=== PATIENT | male | born 1955 | race Native Hawaiian/Other Pacific Islander ===

== ENCOUNTER 2020-06-23 10:58 | Emergency (ER) | payer OTHER, SELFPAY ==
[2020-06-23] VITALS (8 sets, daily range): BP systolic 135–139; BP diastolic 67–75; PULSE 71–85; RESP 18; TEMP 36.4; O2SAT 97–99
--- NOTE | 2020-06-23 11:33 | DI.RAD.S_ITS ---
PROCEDURE: XR FOOT LT MIN 3V INDICATIONS: Left 1st toe infection, spreading to foot and 2nd toe TECHNIQUE: 3 views of the foot were acquired. COMPARISON: None. FINDINGS: Bones: No fractures or dislocations. No suspicious bony lesions. There is arthritis involving the great toe IP joint. Subchondral lucencies are identified. Soft tissues: No tibiotalar joint effusion. Achilles tendon appears normal. IMPRESSION: There is nonspecific arthritic change involving the great toe IP joint. If suspect a septic joint, left foot MRI with without contrast may be helpful. Dictated by: Martell Goodwin M.D. on 06/23/2020 at 10:54 Approved by: Martell Goodwin M.D. on 06/23/2020 at 10:56
--- NOTE | 2020-06-23 11:35 | PC.NURSE ---
Left great toe swollen w/ exudate, small area of dark round on bottom of toe, redness and swelling spreading to 2nd toe and to bases of toes. + CSM w/ movement limited by pain.
[2020-06-23 11:53] LABS: INR 1.1 (0.9-1.3); Prothrombin Time 12.5 SECONDS (10.1-12.7)
[2020-06-23 11:55] LABS: PTT Partial Thromboplastin Tim 36 SECONDS (26.4-36.2)
[2020-06-23 11:58] LABS: Add Manual Diff / Slide Review NO; Basophils Absolute Auto 100 /uL (0-100); Basophils Percent Auto 0.7 % (0-2); Eosinophils Absolute Auto 1100 /uL (0-450); Hematocrit 41.2 % (41-53); Hemoglobin 13.4 g/dL (13.5-17.5); Lymphocytes Absolute Auto 1900 /uL (1100-4500); Lymphocytes Percent Auto 24.9 % (25-40); Mean Corpuscular HGB Conc 32.6 % (30-36); Mean Corpuscular Hemoglobin 29.6 PG (26-34); Mean Corpuscular Volume 90.8 fL (80-100); Monocytes Absolute Auto 800 /uL (0-900); Monocytes Percent Auto 10.9 % (3-14); Neutrophils Absolute Auto 3800 /uL (1500-7000); Neutrophils Percent Auto 49.5 % (50-75); Platelet Count 273 X10^3/uL (150-400); Red Blood Cell Count 4.54 X10^6/uL (4.5-5.9); White Blood Cell Count 7.8 X10^3/uL (4.5-11.0)
[2020-06-23 12:05] LABS: Alanine Aminotransferase 7 IU/L (<50); Albumin 3.6 g/dL (3.5-5.0); Alkaline Phosphatase 64 U/L (38-126); Aspartate Aminotransferase 22 IU/L (17-59); BUN Creatinine Ratio 17.4 (6-22); Bilirubin Total 0.4 mg/dL (0.2-1.3); Blood Urea Nitrogen 26 mg/dL (9-20); Calcium 8.5 mg/dL (8.4-10.2); Carbon Dioxide 28 mmol/L (22-32); Chloride 101 mmol/L (98-107); Estimated Glomerular Filt Rate 47.2 mL/min (>60); Globulin 3.5 g/dL (1.7-4.1); Glucose 173 mg/dL (80-110); HEMOLYSIS < 15 (0-50); Lipase 226 U/L (23-300); Potassium 3.8 mmol/L (3.4-5.1); Sodium 133 mmol/L (137-145); Total Protein 7.1 g/dL (6.3-8.2)
--- NOTE | 2020-06-23 12:21 | ED_ITS ---
HPI - Extremity Problem General Chief complaint: Extremity Problem,Nontraumatic Stated complaint: Left big toe infection, started swelling, diabetic Time Seen by Provider: 06/23/20 11:59 Source: patient and family Mode of arrival: Wheelchair Limitations: no limitations History of Present Illness HPI Narrative: This is a 64-year-old male comes emergency department with complaint of infection in his great toe and extending into the proximal foot and 2nd toe. Patient has had a wound on the bottom of his great toe that he has been following with [facility]. They have been doing localized wound care along with topical bacitracin and they both state that his been slowly healing. Patient states in the last 1-2 days he has noticed increasing redness extending over the top of the toe and towards the edge of the 2nd toe. He also appreciated some maceration between the toes. He states they have been keeping the area clean and dry. Patient states it has become more painful. He has known insulin-dependent diabetes, Parkinson's and has not had any prior skin infections in the past. He states his hemoglobin A1c has improved from 8-7.5. He denies any other systemic symptoms such as fevers, no chest pain, shortness of breath, nausea or vomiting, no other GI or urinary symptoms. He denies any known neuropathy. He has not been on any oral antibiotics. He has been referred to a roller bearing inspector by the [facility] a month ago but they have not been able to actually establish an appointment for that the referral has been fully completed. Related Data Previous Rx's Medication Instructions Recorded doxycycline hyclate 100 mg PO BID #20 tab 06/23/20 Allergies Allergy/AdvReac Type Severity Reaction Status Date / Time No Known Drug Allergies Allergy Verified 06/23/20 11:22 Review of Systems Review of Systems ROS Unobtainable: All systems reviewed & are unremarkable except as noted in HPI and below Patient History Medical History Diabetes Social History Smoking Status: Never smoker Smoking Status: Never smoker alcohol intake frequency: 0-2 drinks per day Substance Use Type: does not use Exam Narrative Exam Narrative: GENERAL: Alert and oriented x three, well-nourished male in mild distress HEENT: Head normocephalic, atraumatic, EOMI, pupils reactive, face symmetric, moist mucous membranes NECK: Supple, full range of motion CARDIOVASCULAR: Regular rate and rhythm without murmurs, rubs or gallops. RESPIRATORY: Breath sounds equal bilaterally, no wheezes rales or rhonchi. ABDOMEN: Soft, nontender. Normoactive bowel sounds all 4 quadrants. No guarding or rebound, rigidity, no mass EXTREMITIES: Normal range of motion. Neurovascularly intact. Patient has swelling of the great toe on the left foot as well as some mild swelling into the 2nd toe on the medial side. Patient has a wound with clear callus that ap pears to be developing over that area. It is not actively draining any fluid. The dorsum of the foot has some erythema and swelling attending about a cm up into the dorsum of the foot in webbing between the 2 toes. The skin is macerated between the 1st and 2nd digits. There is some serosanguineous drainage but no purulent drainage. Patient does have tenderness to light touch. Cap refill does appear to be intact. Patient has significant thickening of the toenail consistent with onychomycosis. Patient does have 2+ dorsalis pedis bilateral lower extremities sensation to light touch throughout both feet. And full range of motion. NEUROLOGICAL: Cranial nerves II through XII grossly intact. Moving all extremities SKIN: Warm, dry, no petechiae, no rashes or lesions other than noted above. Initial Vital Signs Initial Vital Signs: Vital Signs Temperature 97.6 F 06/23/20 11:00 Pulse Rate 85 06/23/20 11:00 Respiratory Rate 18 06/23/20 11:00 Blood Pressure 135/67 06/23/20 11:00 Pulse Oximetry 98 06/23/20 11:00 Course Orders Ordered: ED Orders 06/23/20 11:31 Complete Blood Count AUTO DIFF Stat Comprehensive Metabolic Panel Stat Lactate (Lactic Acid) Stat Lipase Stat Partial Thromboplastin Time Stat Procalcitonin Stat Prothrombin Time INR Stat 06/23/20 11:33 XR foot LT min 3V Stat 06/23/20 12:15 Blood Culture Stat 06/23/20 13:30 Wound Culture and Gram Stain Stat Discontinued Medications Doxycycline Hyclate (Doxycycline Hyclate 100 Mg Tablet) 100 mg PO NOW ONE Stop: 06/23/20 12:53 Last Admin: 06/23/20 13:09 Dose: 100 mg Documented by: NAYAN Vital Signs Vital signs: Vital Signs - 8 hr 06/23/20 11:00 06/23/20 11:34 06/23/20 11:40 Temperature 97.6 F Pulse Rate 85 79 Pulse Rate [Left Dorsalis Pedis] 79 Respiratory Rate 18 Blood Pressure 135/67 Pulse Oximetry 98 97 06/23/20 12:00 06/23/20 12:30 06/23/20 13:00 Temperature Pulse Rate 79 71 76 Pulse Rate [Left Dorsalis Pedis] Respiratory Rate Blood Pressure Pulse Oximetry 98 97 99 06/23/20 13:30 06/23/20 13:33 Temperature Pulse Rate 75 75 Pulse Rate [Left Dorsalis Pedis] Respiratory Rate Blood Pressure 139/75 Pulse Oximetry 99 99 MDM - Extremity (Nontraumatic) Lab Data Result diagrams: 06/23/20 11:31 06/23/20 11:31 Labs: Lab Results 06/23/20 06/23/20 06/23/20 Range/Units 11:31 11:31 11:31 WBC 7.8 (4.5-11.0) X10^3/uL RBC 4.54 (4.5-5.9) X10^6/uL Hgb 13.4 L (13.5-17.5) g/dL Hct 41.2 (41-53) % MCV 90.8 (80-100) fL MCH 29.6 (26-34) PG MCHC 32.6 (30-36) % RDW 13.0 (11.6-14.8) % Plt Count 273 (150-400) X10^3/uL Neut % (Auto) 49.5 L (50-75) % Lymph % (Auto) 24.9 L (25-40) % [place] % (Auto) 10.9 (3-14) % Eos % (Auto) 14.0 H (2-4) % Baso % (Auto) 0.7 (0-2) % Neut # (Auto) 3800 (5132-1464) /uL Lymph # (Auto) 1900 (6336-7703) /uL [place] # (Auto) 800 (0-900) /uL Eos # (Auto) 1100 H (0-450) /uL Baso # (Auto) 100 (0-100) /uL PT 12.5 (10.1-12.7) SECONDS INR 1.1 (0.9-1.3) APTT 36 (26.4-36.2) SECONDS Sodium 133 L (137-145) mmol/L Potassium 3.8 (3.4-5.1) mmol/L Chloride 101 (98-107) mmol/L Carbon Dioxide 28 (22-32) mmol/L BUN 26 H (9-20) mg/dL Creatinine 1.49 H (0.66-1.25) mg/dL Estimated GFR 47.2 L (>60) mL/min BUN/Creatinine Ratio 17.4 (6-22) Glucose 173 H (80-110) mg/dL Lactate (0.7-2.1) mmol/L Calcium 8.5 (8.4-10.2) mg/dL Total Bilirubin 0.4 (0.2-1.3) mg/dL AST 22 (17-59) IU/L ALT 7 (<50) IU/L Alkaline Phosphatase 64 (38-126) U/L Total Protein 7.1 (6.3-8.2) g/dL Albumin 3.6 (3.5-5.0) g/dL Globulin 3.5 (1.7-4.1) g/dL Albumin/Globulin Ratio 1.0 (1.0-2.8) Lipase 226 (23-300) U/L Procalcitonin 0.10 (<0.5) ng/mL 06/23/20 Range/Units 11:31 WBC (4.5-11.0) X10^3/uL RBC (4.5-5.9) X10^6/uL Hgb (13.5-17.5) g/dL Hct (41-53) % MCV (80-100) fL MCH (26-34) PG MCHC (30-36) % RDW (11.6-14.8) % Plt Count (150-400) X10^3/uL Neut % (Auto) (50-75) % Lymph % (Auto) (25-40) % [place] % (Auto) (3-14) % Eos % (Auto) (2-4) % Baso % (Auto) (0-2) % Neut # (Auto) (7261-6139) /uL Lymph # (Auto) (1591-8951) /uL [place] # (Auto) (0-900) /uL Eos # (Auto) (0-450) /uL Baso # (Auto) (0-100) /uL PT (10.1-12.7) SECONDS INR (0.9-1.3) APTT (26.4-36.2) SECONDS Sodium (137-145) mmol/L Potassium (3.4-5.1) mmol/L Chloride (98-107) mmol/L Carbon Dioxide (22-32) mmol/L BUN (9-20) mg/dL Creatinine (0.66-1.25) mg/dL Estimated GFR (>60) mL/min BUN/Creatinine Ratio (6-22) Glucose (80-110) mg/dL Lactate 1.5 (0.7-2.1) mmol/L Calcium (8.4-10.2) mg/dL Total Bilirubin (0.2-1.3) mg/dL AST (17-59) IU/L ALT (<50) IU/L Alkaline Phosphatase (38-126) U/L Total Protein (6.3-8.2) g/dL Albumin (3.5-5.0) g/dL Globulin (1.7-4.1) g/dL Albumin/Globulin Ratio (1.0-2.8) Lipase (23-300) U/L Procalcitonin (<0.5) ng/mL Point of Care Testing Glucose POC 170 Imaging Data Extremity x-ray #1: Radiologist's Impression: [address] [id number] ReportSigned Patient: Juan J Fisher#: [id number]: 4Acct:[id number]/Sex: 64 / MDate of Service: 06/23/20Loc: EDAccession Number: [id number] Procedure: XR foot LT min 3V Ordering Provider: Aminta Pena D.O. PROCEDURE: XR FOOT LT MIN 3V INDICATIONS: Left 1st toe infection, spreading to foot and 2nd toe TECHNIQUE: 3 views of the foot were acquired. COMPARISON: None. FINDINGS: Bones: No fractures or dislocations. No suspicious bony lesions. There is arthritis involving the great toe IP joint. Subchondral lucencies are identified. Soft tissues: No tibiotalar joint effusion. Achilles tendon appears normal. IMPRESSION: There is nonspecific arthritic change involving the great toe IP joint. If suspect a septic joint, left foot MRI with without contrast may be helpful. Dictated by: Martell Goodwin M.D. on 06/23/2020 at 10:54 Approved by: Martell Goodwin M.D. on 06/23/2020 at 10:56 [facility] Narrative Medical decision making narrative: 64-year-old male comes to the emergency department with complaint of open wound that is been slowly healing on the bottom of his great toe on the left foot and in the last 2 days has developed erythema, swelling increasing pain over the dorsum of the toe and extending to the 2nd toe. Patient has been treating with localized wound care and topical antibiotics. He has not been on any oral antibiotics. X-ray shows some arthritic changes no clear signs of osteomyelitis. We did discuss that this is not cold being injured and he may need some additional evaluation. His labs are reassuring in terms of infection. At this time plan to start oral antibiotics, referral to wound care locally for follow-up this week and patient has been encouraged to return if he has increasing changes to the skin, pain or is unable to follow-up. Wound care referral was faxed. Discharge Plan Departure Patient Disposition: Home Clinical Impression: Diabetic ulcer of left great toe, Cellulitis of foot Instructions: DI for Wound Infection Activity Restrictions/Additional Instructions: Follow up with wound care this week for recheck. Call for an appointment if you have not been contacted by Thursday. Take antibiotics until completely gone. Continue with wound care and topical bacitracin to the wound on the bottom of your toe. Wound Care: Keep wound(s) clean and dry. Wash daily with soap and water only then pat dry completely including between the toes. If wound condition worsens (increased/expanding redness, developing fluid blisters, or worsening pain), either contact your doctor for an urgent re- assessment , or return to the Emergency Department. Return if fever greater than 100.4 Fahrenheit, increased swelling, increasing pain or worsening symptoms such as increased discharge or spreading redness or other new or concerning symptoms. Prescriptions: New doxycycline hyclate 100 mg tablet 100 mg PO BID Qty: 20 RF: 0 Referrals: Daryn Serrano MD [Physician] -
[2020-06-23] MEDS: DOXYCYCLINE HYCLATE 100 MG TABLET PO (13:09)
[2020-06-23 13:17] LABS: Lactate (Lactic Acid) 1.5 mmol/L (0.7-2.1)
== END 2020-06-23 14:00 | disposition home or self-care (01) ==
PROVIDERS: Emergency Provider Emergency Medicine
DX: E11.621 Type 2 diabetes mellitus with foot ulcer (principal); L97.529 Non-pressure chronic ulcer of other part of left foot with unspecified severity; L03.116 Cellulitis of left lower limb
CPT/HCPCS: 36415; 73630; 80053; 82962; 83605; 83690; 84145; 85025; 85610; 85730; 87040; 87070; 87075; 87077; 87186; 87205; 99283; 99284

== ENCOUNTER → 2020-06-26 09:21 | Outpatient (CLI) | payer MEDICARE, OTHER, SELFPAY | PROVIDERS: Referring Provider Emergency Medicine; Visit Provider Family Medicine | DX: E11.621 Type 2 diabetes mellitus with foot ulcer (principal); L97.521 Non-pressure chronic ulcer of other part of left foot limited to breakdown of skin; L03.116 Cellulitis of left lower limb; E11.40 Type 2 diabetes mellitus with diabetic neuropathy, unspecified; L08.89 Other specified local infections of the skin and subcutaneous tissue; G20 Parkinson's disease | CPT/HCPCS: 11042; 99204; 99213 ==

== ENCOUNTER → 2020-07-03 09:09 | Outpatient (CLI) | payer MEDICARE, OTHER, SELFPAY | PROVIDERS: Referring Provider Emergency Medicine; Visit Provider Family Medicine | DX: E11.628 Type 2 diabetes mellitus with other skin complications (principal); E11.621 Type 2 diabetes mellitus with foot ulcer; E11.620 Type 2 diabetes mellitus with diabetic dermatitis; L97.521 Non-pressure chronic ulcer of other part of left foot limited to breakdown of skin; S90.425A Blister (nonthermal), left lesser toe(s), initial encounter; E11.40 Type 2 diabetes mellitus with diabetic neuropathy, unspecified | CPT/HCPCS: 11042; 97597; 99214 ==

== ENCOUNTER → 2020-07-12 08:45 | Outpatient (CLI) | payer MEDICARE, OTHER, SELFPAY | PROVIDERS: Referring Provider Emergency Medicine; Visit Provider Family Medicine | DX: E11.621 Type 2 diabetes mellitus with foot ulcer (principal); E11.628 Type 2 diabetes mellitus with other skin complications; L97.521 Non-pressure chronic ulcer of other part of left foot limited to breakdown of skin; S90.425A Blister (nonthermal), left lesser toe(s), initial encounter; E11.40 Type 2 diabetes mellitus with diabetic neuropathy, unspecified | CPT/HCPCS: 11042 ==

== ENCOUNTER → 2020-07-24 09:21 | Outpatient (CLI) | payer MEDICARE, OTHER, SELFPAY | PROVIDERS: Referring Provider Emergency Medicine; Visit Provider Family Medicine | DX: E11.621 Type 2 diabetes mellitus with foot ulcer (principal); L97.521 Non-pressure chronic ulcer of other part of left foot limited to breakdown of skin; E11.40 Type 2 diabetes mellitus with diabetic neuropathy, unspecified | CPT/HCPCS: 11042; 99214 ==

== ENCOUNTER → 2020-07-24 10:22 | Outpatient (CLI) | payer MEDICARE, OTHER, SELFPAY ==
--- NOTE | 2020-07-24 10:31 | DI.RAD.S_ITS ---
PROCEDURE: XR FOOT LT MIN 3V INDICATIONS: LT DISKAL HALLUX, REEVALUATE OSTEO TECHNIQUE: 3 views of the foot were acquired. COMPARISON: [facility], CR, XR FOOT LT MIN 3V, 06/23/2020, 11:37. FINDINGS: Bones: No fractures or dislocation, but there appears to be further progression of joint space narrowing and a development of a flexion deformity at the 1st interphalangeal joint.. No suspicious bony lesions. Soft tissues: No tibiotalar joint effusion. Achilles tendon appears normal. IMPRESSION: Mild arthritic change at the interphalangeal joints of digits 2 through 5. At the 1st interphalangeal joint there is worsening joint space narrowing, and a flexion deformity on each of the 3 images potentially an indication of osteomyelitis and ligamentous laxity injury to the extensor tendon.. The clinical history indicates left 1st toe infection, and this appearance may reflect progression of disease. MR scanning with contrast may be warranted Dictated by: Ismael Coyle M.D. on 07/24/2020 at 11:09 Approved by: Ismael Coyle M.D. on 07/24/2020 at 11:18
== END ==
PROVIDERS: Referring Provider Family Medicine; Visit Provider Family Medicine
DX: L97.521 Non-pressure chronic ulcer of other part of left foot limited to breakdown of skin (principal); E11.621 Type 2 diabetes mellitus with foot ulcer; E11.40 Type 2 diabetes mellitus with diabetic neuropathy, unspecified
CPT/HCPCS: 11042; 73630

== ENCOUNTER → 2020-07-25 09:20 | Outpatient (CLI) | payer MEDICARE, OTHER, SELFPAY ==
[2020-07-25 10:12] LABS: Add Manual Diff / Slide Review NO; Basophils Absolute Auto 100 /uL (0-100); Basophils Percent Auto 0.7 % (0-2); Eosinophils Absolute Auto 600 /uL (0-450); Eosinophils Percent Auto 7.4 % (2-4); Hematocrit 43.1 % (41-53); Hemoglobin 14.3 g/dL (13.5-17.5); Lymphocytes Absolute Auto 1800 /uL (1100-4500); Mean Corpuscular HGB Conc 33.2 % (30-36); Mean Corpuscular Volume 90.3 fL (80-100); Monocytes Absolute Auto 700 /uL (0-900); Monocytes Percent Auto 8.6 % (3-14); Neutrophils Absolute Auto 4500 /uL (1500-7000); Neutrophils Percent Auto 59.3 % (50-75); Platelet Count 295 X10^3/uL (150-400); Red Blood Cell Count 4.77 X10^6/uL (4.5-5.9); Red Cell Distribution Width 13.5 % (11.6-14.8); White Blood Cell Count 7.6 X10^3/uL (4.5-11.0)
[2020-07-25 10:21] LABS: Hemoglobin A1C% w Est Avg Glu 7.6 % (4.0-6.0)
[2020-07-25 10:41] LABS: Erythrocyte Sedimentation Rate 4 MM/HR (0-15)
[2020-07-25 10:46] LABS: HEMOLYSIS 24 (0-50); Potassium 3.8 mmol/L (3.4-5.1)
[2020-07-25 10:49] LABS: Alanine Aminotransferase 10 IU/L (<50); Alkaline Phosphatase 69 U/L (38-126); Aspartate Aminotransferase 24 IU/L (17-59); BUN Creatinine Ratio 19.3 (6-22); Bilirubin Total 0.4 mg/dL (0.2-1.3); Blood Urea Nitrogen 29 mg/dL (9-20); C-Reactive Protein Quant < 0.5 mg/dL (<1.0); Calcium 8.4 mg/dL (8.4-10.2); Carbon Dioxide 26 mmol/L (22-32); Chloride 100 mmol/L (98-107); Estimated Glomerular Filt Rate 46.8 mL/min (>60); Globulin 3.9 g/dL (1.7-4.1); Glucose 176 mg/dL (80-110); Sodium 136 mmol/L (137-145); Total Protein 7.9 g/dL (6.3-8.2)
== END ==
PROVIDERS: Referring Provider Family Medicine; Visit Provider Family Medicine
DX: L97.521 Non-pressure chronic ulcer of other part of left foot limited to breakdown of skin (principal); E11.40 Type 2 diabetes mellitus with diabetic neuropathy, unspecified
CPT/HCPCS: 36415; 80053; 83036; 85025; 85651; 86140

== ENCOUNTER → 2020-07-26 07:00 | Outpatient (CLI) | payer MEDICARE, OTHER, SELFPAY ==
--- NOTE | 2020-07-26 | DI.MRI.S_ITS ---
PROCEDURE: MR FOOT LT WO/W CON INDICATIONS: Non-pressure chronic ulcer of other part of left f TECHNIQUE: Noncontrast coronal T1 spin echo and STIR, sagittal T1 spin echo with fat saturation and STIR, axial T1 spin echo and T2 fast spin echo with fat saturation. After the administration of contrast, axial/sagittal/coronal T1 spin echo with fat saturation through the left foot . COMPARISON: [facility], CR, XR FOOT LT MIN 3V, 07/24/2020, 10:39. FINDINGS: Image quality: Excellent. Bones: The visualized bone marrow demonstrates normal signal on all sequences. The overlying cortex appears intact. No abnormal intraosseous enhancement. 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 The sesamoids signal intensity within normal limits. There is mild T2 hyperintensity in the tip of the distal phalanx of the great toe which could be reactive, without definite loss of fat signal intensity on T1 weighted pulse sequences. Soft tissues: There is diffuse muscle edema involving the interosseous and abductor hallucis muscles. No evidence of abscess. There is soft tissue swelling at the tip of the great toe. IMPRESSION: Diffuse myositis involving the deep plantar musculature of the foot. The exact etiology is unclear therefore please correlate clinically. This could be inflammatory or infectious in nature, denervation, versus acute posttraumatic or chronic overuse etiologies No specific focal marrow signal changes to suggest osteomyelitis. If clinically warranted, continued surveillance with serial short interval radiographs could be performed. 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 on 07/26/2020 at 9:54 Approved by: Naresh George M.D. on 07/26/2020 at 10:02
== END ==
PROVIDERS: Referring Provider Family Medicine; Visit Provider Family Medicine
DX: E11.40 Type 2 diabetes mellitus with diabetic neuropathy, unspecified (principal); L97.521 Non-pressure chronic ulcer of other part of left foot limited to breakdown of skin; E11.620 Type 2 diabetes mellitus with diabetic dermatitis; M60.9 Myositis, unspecified; M19.072 Primary osteoarthritis, left ankle and foot
CPT/HCPCS: 73720

== ENCOUNTER → 2020-08-09 08:43 | Outpatient (CLI) | payer MEDICARE, OTHER, SELFPAY | PROVIDERS: Referring Provider Emergency Medicine; Visit Provider Family Medicine | DX: E11.621 Type 2 diabetes mellitus with foot ulcer (principal); L97.521 Non-pressure chronic ulcer of other part of left foot limited to breakdown of skin; E11.40 Type 2 diabetes mellitus with diabetic neuropathy, unspecified; G20 Parkinson's disease; Z48.01 Encounter for change or removal of surgical wound dressing | CPT/HCPCS: 99213 ==

== ENCOUNTER → 2020-08-16 09:52 | Outpatient (CLI) | payer MEDICARE, OTHER, SELFPAY | PROVIDERS: Referring Provider Emergency Medicine; Visit Provider Nurse Practitioner Family | DX: Z86.31 Personal history of diabetic foot ulcer (principal); E11.40 Type 2 diabetes mellitus with diabetic neuropathy, unspecified | CPT/HCPCS: 99212; 99213 ==

== ENCOUNTER 2022-07-27 06:31 | Observation (INO) | payer MEDICARE, OTHER, SELFPAY ==
[2022-07-27] VITALS (30 sets, daily range): BP systolic 126–204; BP diastolic 59–95; PULSE 66–89; RESP 11–28; TEMP 36.3–36.9; O2SAT 95–100; BMI 27.9
--- NOTE | 2022-07-27 06:45 | DI.RAD.S_ITS ---
PROCEDURE: XR CHEST 1V INDICATIONS: syncope TECHNIQUE: One view of the chest was acquired. COMPARISON: None. FINDINGS: Surgical changes and devices: None. Lungs and pleura: Lungs are clear. No pleural effusions or pneumothorax. Mediastinum: Mediastinal contours appear normal. Heart size is normal. Bones and chest wall: No suspicious bony lesions. A probable bone island on the right 6th anterior rib. Overlying soft tissues appear unremarkable. IMPRESSION: 1. No acute cardiopulmonary abnormality. 2. Probable bone island on the right 6th rib anteriorly. Oblique view would be confirmatory. Comment: Final report is concordant with preliminary interpretation by [facility] Dictated by: Jeanmarie Nelson M.D. on 07/27/2022 at 7:54 Approved by: Jeanmarie Nelson M.D. on 07/27/2022 at 7:55
--- NOTE | 2022-07-27 07:27 | ED.GENADULT ---
HPI - General Adult General Chief complaint: Syncope Stated complaint: fell and hit back of head and hit tailbone Time Seen by Provider: 07/27/22 06:39 Source: patient and family Mode of arrival: Wheelchair History of Present Illness HPI narrative: Patient is a 66-year-old male. History of insulin-dependent diabetes. Also has a history of Parkinson's disease. Was standing this morning getting ready brushing his teeth when he states he had a syncopal episode. He would no prodromal symptoms prior to passing out. He did state that he felt like he had a headache prior to falling down but not 100% convinced this. He has a slight fullness in his head now. He is no neck pain. He also states his tailbone hurts. He scraped the top of his right foot but no other injuries from the fall. There was no seizure-like activity. He is never had a seizure in the past. He denies chest pain, shortness of breath, visual changes, bowel or bladder incontinence, hip pain. He states he does not think that he tripped. Related Data Previous Rx's Medication Instructions Recorded doxycycline hyclate 100 mg tablet 100 mg PO BID #20 tabs 06/23/20 Allergies Allergy/AdvReac Type Severity Reaction Status Date / Time No Known Drug Allergies Allergy Verified 06/23/20 11:22 Review of Systems Review of Systems ROS Unobtainable: All systems reviewed & are unremarkable except as noted in HPI and below Patient History Medical History Diabetes Parkinsons disease Social History Smoking Status: Never smoker Smoking Status: Never smoker alcohol intake frequency: 0-2 drinks per day Substance Use Type: does not use Exam Initial Vital Signs Initial Vital Signs: Vital Signs Temperature 97.4 F L 07/27/22 06:43 Pulse Rate 89 07/27/22 06:43 Respiratory Rate 17 07/27/22 06:43 Blood Pressure 159/74 H 07/27/22 06:43 Pulse Oximetry 97 07/27/22 06:43 Oxygen Delivery Method Room Air 07/27/22 06:43 Const General: cooperative, comfortable and No ill appearing HENMT Head: normal to inspection and normocephalic Resp Effort & Inspection: normal respiratory effort Auscultation: clear to auscultation bilaterally Cardio Rate: regular rate Rhythm: regular rhythm GI Inspection: normal to inspection Palpation: No guarding and No tender Back/Spine/Pelvis Cervical Spine: No cervical spinal tenderness Thoracic/Lumbar Spine: No paraspinal tenderness and lumbar spinal tenderness Skin Other: Slight abrasion to the dorsum of the right foot Neuro General: patient alert, patient awake, patient oriented x3 and moves all extremities Cognition: normal cognition Speech: speech normal Extrem General: normal to inspection and capillary refill normal Scores [place] CT Head Rule Age <16 years old: No Patient on blood thinners: No Seizure after injury: No Exclusion: Patient NOT Excluded, Proceed to next steps GCS < 15 at 2 hr post trauma: No Suspected open or depressed skull fracture: No Any sign of basilar skull fracture (hemotympanum, raccoon eyes, Parikh's sign, CSF umang-/rhinorrhea): No Two or more episodes of vomiting: No Age greater or equal to 65 years: Yes Retrograde amnesia to the event greater or equal to 30 min: No Dangerous Mechanism (pedestrian vs. mv, occupant ejected from mv, fall from >3 ft or > 5 stairs): No Recommendation: Consider CT. The [place] [facility] CT Rule cannot rule out need for Imaging. GCS [place] coma scale eye opening: Spontaneous [place] coma scale verbal response: Orientated [place] coma scale motor response: Obey commands [place] coma scale total score: 15 Nexus Score for C-Spine Focal Neurologic deficit present: No Midline spinal tenderness present: No Altered level of conciousness present: No Intoxication present: No Distracting Injury Present: No Nexus Criteria for C-spine: 0 Course Orders Ordered: ED Orders 07/27/22 06:45 XR chest 1V Stat EKG-12 Lead Stat 07/27/22 07:28 CT head/brain wo con Stat XR lumbar spine 2-3V Stat 07/27/22 07:55 Complete Blood Count AUTO DIFF Stat Comprehensive Metabolic Panel Stat Lipase Stat Magnesium Urgent Troponin & CK Cardiac Panel Stat 07/27/22 10:05 Troponin & CK Cardiac Panel Stat 07/27/22 11:00 Urine Microscopic Stat 07/27/22 11:48 Consult to Occupational Therapy Evaluate & Treat Consult to Physical Therapy Evaluate & Treat EC echo doppler complete Urgent 07/27/22 11:49 stress [NM radha perf SPECT rest & str] Urgent Lipid Panel Urgent 07/27/22 12:06 COVID19 -Nasal RAPID Stat 07/28/22 05:00 BMP [Basic Metabolic Panel] DAILY CBC Auto Diff [Complete Blood Count AUTO DIFF] DAILY Troponin I Routine 07/29/22 05:00 BMP [Basic Metabolic Panel] DAILY CBC Auto Diff [Complete Blood Count AUTO DIFF] DAILY 07/30/22 05:00 BMP [Basic Metabolic Panel] DAILY CBC Auto Diff [Complete Blood Count AUTO DIFF] DAILY Acetaminophen (Acetaminophen 325 Mg Tablet) 650 mg PO Q6H PRN PRN Reason: Fever/Mild Pain (1-3) Aspirin (Aspirin Ec 81 Mg Tablet) 81 mg PO DAILY [facility] Sodium Chloride (Normal Saline 0.9%) 1,000 mls @ 150 mls/hr IV CONT SUDHEER Last Admin: 07/27/22 08:30 Dose: 150 mls/hr Documented By: NICO Labetalol HCl (Labetalol 20 Mg/4 Ml Syringe) 10 mg IV Q5MIN PRN PRN Reason: SBP >180 or DBP >100 Losartan Potassium (Losartan 50 Mg Tablet) 25 mg PO DAILY [facility] Melatonin (Melatonin 3 Mg Tablet) 6 mg PO BEDTIME PRN PRN Reason: Insomnia Naloxone HCl (Naloxone 0.4 Mg/Ml Vial) 0.2 mg IV Q2MIN PRN PRN Reason: Opiate Reversal Polyethylene Glycol (Polyethylene Glycol 3350 17 Gm Powd.Pack) 17 gm PO DAILY PRN PRN Reason: Constipation Sennosides (Sennosides 8.6 Mg Tablet) 8.6 mg PO BID PRN PRN Reason: Constipation Vital Signs Vital signs: Vital Signs - 8 hr 07/27/22 06:43 07/27/22 07:52 07/27/22 07:55 Temperature 97.4 F L Pulse Rate 89 71 Respiratory Rate 17 24 Blood Pressure 159/74 H 201/90 H Pulse Oximetry 97 97 Oxygen Delivery Method Room Air 07/27/22 07:55 07/27/22 08:00 07/27/22 08:00 Temperature Pulse Rate 68 66 Respiratory Rate 18 17 Blood Pressure 180/84 H Pulse Oximetry 96 97 Oxygen Delivery Method 07/27/22 08:15 07/27/22 08:15 07/27/22 08:30 Temperature Pulse Rate 70 Respiratory Rate 14 Blood Pressure 178/85 H 179/92 H Pulse Oximetry 99 Oxygen Delivery Method 07/27/22 08:30 07/27/22 08:45 07/27/22 08:45 Temperature Pulse Rate 67 72 Respiratory Rate 18 21 Blood Pressure 183/86 H Pulse Oximetry 98 97 Oxygen Delivery Method 07/27/22 09:00 07/27/22 09:00 07/27/22 09:15 Temperature Pulse Rate 69 Respiratory Rate 15 Blood Pressure 182/84 H 191/89 H Pulse Oximetry 97 Oxygen Delivery Method 07/27/22 09:15 07/27/22 09:30 07/27/22 09:31 Temperature Pulse Rate 69 72 71 Respiratory Rate 12 15 13 Blood Pressure Pulse Oximetry 97 99 97 Oxygen Delivery Method 07/27/22 09:31 07/27/22 09:46 07/27/22 09:46 Temperature Pulse Rate 73 Respiratory Rate 12 Blood Pressure 204/95 H 202/88 H Pulse Oximetry 99 Oxygen Delivery Method Medical Decision Making Lab Data Lab results reviewed: Yes I reviewed the patient's lab results. 07/27/22 07:55 07/27/22 07:55 Labs: Lab Results 07/27/22 07/27/22 07/27/22 Range/Units 07:55 07:55 10:05 WBC 10.0 (4.5-11.0) X10^3/uL RBC 4.61 (4.5-5.9) X10^6/uL Hgb 13.8 (13.5-17.5) g/dL Hct 41.3 (41-53) % MCV 89.6 (80-100) fL MCH 29.9 (26-34) PG MCHC 33.4 (30-36) % RDW 13.4 (11.6-14.8) % Plt Count 289 (150-400) X10^3/uL Neut % (Auto) 74.3 (50-75) % Lymph % (Auto) 12.3 L (25-40) % [place] % (Auto) 8.4 (3-14) % Eos % (Auto) 4.7 H (2-4) % Baso % (Auto) 0.3 (0-2) % Neut # (Auto) 7400 H (5433-6847) /uL Lymph # (Auto) 1200 (4288-7202) /uL [place] # (Auto) 800 (0-900) /uL Eos # (Auto) 500 H (0-450) /uL Baso # (Auto) 0 (0-100) /uL Sodium 133 L (137-145) mmol/L Potassium 4.1 (3.4-5.1) mmol/L Chloride 101 (98-107) mmol/L Carbon Dioxide 27 (22-32) mmol/L BUN 28 H (9-20) mg/dL Creatinine 1.54 H (0.66-1.25) mg/dL Estimated GFR 49 L (>60) mL/min BUN/Creatinine Ratio 18.2 (6-22) Glucose 151 H (80-110) mg/dL Calcium 8.2 L (8.4-10.2) mg/dL Total Bilirubin 0.9 (0.2-1.3) mg/dL AST 24 (17-59) IU/L ALT 9 (<50) IU/L Alkaline Phosphatase 75 (38-126) U/L Total Creatine Kinase 425 H 397 H (55-170) U/L CK-MB (CK-2) 6.66 H 6.07 H (<2.37) ng/mL CK-MB (CK-2) Rel Index 1.6 1.5 (1.5-5.0) % Troponin I 0.082 H 0.077 H (0.01-0.034) ng/mL Total Protein 7.6 (6.3-8.2) g/dL Albumin 3.4 L (3.5-5.0) g/dL Globulin 4.2 H (1.7-4.1) g/dL Albumin/Globulin Ratio 0.8 L (1.0-2.8) Lipase 1004 H (23-300) U/L Urine RBC (0-5/HPF) Urine WBC (0-5/HPF) Ur Squamous Epith Cells (0-5/HPF) Urine Bacteria (None) Ur Culture Indicated? 07/27/22 Range/Units 11:00 WBC (4.5-11.0) X10^3/uL RBC (4.5-5.9) X10^6/uL Hgb (13.5-17.5) g/dL Hct (41-53) % MCV (80-100) fL MCH (26-34) PG MCHC (30-36) % RDW (11.6-14.8) % Plt Count (150-400) X10^3/uL Neut % (Auto) (50-75) % Lymph % (Auto) (25-40) % [place] % (Auto) (3-14) % Eos % (Auto) (2-4) % Baso % (Auto) (0-2) % Neut # (Auto) (8238-3523) /uL Lymph # (Auto) (8251-0556) /uL [place] # (Auto) (0-900) /uL Eos # (Auto) (0-450) /uL Baso # (Auto) (0-100) /uL Sodium (137-145) mmol/L Potassium (3.4-5.1) mmol/L Chloride (98-107) mmol/L Carbon Dioxide (22-32) mmol/L BUN (9-20) mg/dL Creatinine (0.66-1.25) mg/dL Estimated GFR (>60) mL/min BUN/Creatinine Ratio (6-22) Glucose (80-110) mg/dL Calcium (8.4-10.2) mg/dL Total Bilirubin (0.2-1.3) mg/dL AST (17-59) IU/L ALT (<50) IU/L Alkaline Phosphatase (38-126) U/L Total Creatine Kinase (55-170) U/L CK-MB (CK-2) (<2.37) ng/mL CK-MB (CK-2) Rel Index (1.5-5.0) % Troponin I (0.01-0.034) ng/mL Total Protein (6.3-8.2) g/dL Albumin (3.5-5.0) g/dL Globulin (1.7-4.1) g/dL Albumin/Globulin Ratio (1.0-2.8) Lipase (23-300) U/L Urine RBC 1-5/hpf (0-5/HPF) Urine WBC 0-1/hpf (0-5/HPF) Ur Squamous Epith Cells 0-1 /hpf (0-5/HPF) Urine Bacteria None seen (None) Ur Culture Indicated? Cult not indicated Urine Dip Bedside Urine Glucose Negative Bedside Urine Bilirubin - Negative Bedside Urine Ketone - Negative Urine Specific [place] 1.020 Bedside Urine Occult Blood + Bedside Urine pH 6.0 Bedside Urine Protein + 30 Bedside Urine Urobilinogen - Negative Bedside Urine Nitrite - Negative Bedside Urine Leukocytes - Negative Esterase Point of care testing: Urine Dip Bedside Urine Glucose Negative Bedside Urine Bilirubin - Negative Bedside Urine Ketone - Negative Urine Specific [place] 1.020 Bedside Urine Occult Blood + Bedside Urine pH 6.0 Bedside Urine Protein + 30 Bedside Urine Urobilinogen - Negative Bedside Urine Nitrite - Negative Bedside Urine Leukocytes - Negative Esterase Imaging Data Chest x-ray: Radiologist's Impression: No acute cardiopulmonary disease. CT scan - head: Radiologist's Impression: PROCEDURE:? CT HEAD/BRAIN WO CON ? INDICATIONS:? syncope ? TECHNIQUE:? Noncontrast 4.5 mm thick angled axial sections acquired from the foramen magnum to the vertex, with coronal and sagittal reformats.? For radiation dose reduction, the following was used:? automated exposure control, adjustment of mA and/or kV according to patient size.? ? COMPARISON:? None. ? FINDINGS:? Image quality:? Excellent.? ? CSF spaces:? Basal cisterns are patent.? No extra-axial fluid collections.? Ventricles are normal in size and shape.? ? Brain:? No midline shift.? No intracranial masses or hemorrhage.? Hansen-white matter interface is normal.? ? Skull and face:? Calvarium and visualized facial bones are intact, without suspicious lesions.? ? Sinuses:? Visualized sinuses and mastoids are clear.? ? IMPRESSION:? 1. No acute intracranial abnormality. 2. Cerebral volume loss and small vessel ischemic changes.? Lumbar spine X-ray: Radiologist's Impression: PROCEDURE:? XR LUMBAR SPINE 2-3V ? INDICATIONS:? LBP after fall ? TECHNIQUE:? 3 views of the lumbar spine were acquired.? ? COMPARISON:? None. ? FINDINGS:? ? Bones:? 5 [id number] vertebrae are present.? There is normal bony alignment.? No vertebral body compression fractures.? No suspicious bony lesions.? Facet arthrosis in the lower lumbar spine with disc space narrowing at L4-5 L5-S1.? Grade 1 anterolisthesis of L4-5 likely due facet arthrosis at this level.? The remaining disc levels superiorly appear.? No sacral or coccyx fracture.? The sacroiliac joints appear normal. ? Soft tissues:? Overlying bowel gas pattern is normal.? No suspicious soft tissue calcifications.? ? ? IMPRESSION:? 1. No acute abnormality. 2. Chronic facet arthrosis and degenerative disc disease L4-5 L5-S1 ECG Data Attestation: I personally reviewed and interpreted this ECG as follows: Interpretation: Normal sinus rhythm Ventricular rate is 68 Right bundle-branch block Normal axis No ST T wave changes MDM Narrative Medical decision making narrative: Patient did have what appeared to be a syncopal episode today although I have low suspicion that this was a mechanical fall. His workup here in the ER is unremarkable except he did have an elevated troponin. He is not having any chest pain or shortness of breath. No EKG changes concerning for ST-elevation [place]. he is not had any risk stratification testing up to this point. No specific injuries from the fall except for an abrasion on the top of his right foot. I have low suspicion for seizure. He does have an elevated lipase but no abdominal pain. His LFTs are unremarkable. Had a discussion with him and his regarding his elevated troponin. We discussed potentially going home and following up with his primary doctor about a stress test versus being admitted to the hospital. Patient opted to be admitted to the hospital. This is not unreasonable given his presentation today and also has elevated troponin. Discussed case with Dr. Amato on-call for Hospital Medicine who will admit for further evaluation and treatment. Discharge Plan Departure Patient Disposition: Admitted as Observation Clinical Impression: Syncope, Elevated troponin
--- NOTE | 2022-07-27 07:28 | DI.RAD.S_ITS ---
PROCEDURE: XR LUMBAR SPINE 2-3V INDICATIONS: LBP after fall TECHNIQUE: 3 views of the lumbar spine were acquired. COMPARISON: None. FINDINGS: Bones: 5 [id number] vertebrae are present. There is normal bony alignment. No vertebral body compression fractures. No suspicious bony lesions. Facet arthrosis in the lower lumbar spine with disc space narrowing at L4-5 L5-S1. Grade 1 anterolisthesis of L4-5 likely due facet arthrosis at this level. The remaining disc levels superiorly appear. No sacral or coccyx fracture. The sacroiliac joints appear normal. Soft tissues: Overlying bowel gas pattern is normal. No suspicious soft tissue calcifications. IMPRESSION: 1. No acute abnormality. 2. Chronic facet arthrosis and degenerative disc disease L4-5 L5-S1 Dictated by: Jeanmarie Nelson M.D. on 07/27/2022 at 8:06 Approved by: Jeanmarie Nelson M.D. on 07/27/2022 at 8:08
--- NOTE | 2022-07-27 07:28 | DI.CT.S_ITS ---
PROCEDURE: CT HEAD/BRAIN WO CON INDICATIONS: syncope TECHNIQUE: Noncontrast 4.5 mm thick angled axial sections acquired from the foramen magnum to the vertex, with coronal and sagittal reformats. For radiation dose reduction, the following was used: automated exposure control, adjustment of mA and/or kV according to patient size. COMPARISON: None. FINDINGS: Image quality: Excellent. CSF spaces: Basal cisterns are patent. No extra-axial fluid collections. Ventricles are normal in size and shape. Brain: No midline shift. No intracranial masses or hemorrhage. Hansen-white matter interface is normal. Skull and face: Calvarium and visualized facial bones are intact, without suspicious lesions. Sinuses: Visualized sinuses and mastoids are clear. IMPRESSION: 1. No acute intracranial abnormality. 2. Cerebral volume loss and small vessel ischemic changes. Dictated by: Jeanmarie Nelson M.D. on 07/27/2022 at 8:05 Approved by: Jeanmarie Nelson M.D. on 07/27/2022 at 8:06
[2022-07-27 08:03] LABS: Add Manual Diff / Slide Review NO; Basophils Absolute Auto 0 /uL (0-100); Basophils Percent Auto 0.3 % (0-2); Eosinophils Absolute Auto 500 /uL (0-450); Eosinophils Percent Auto 4.7 % (2-4); Hematocrit 41.3 % (41-53); Hemoglobin 13.8 g/dL (13.5-17.5); Lymphocytes Absolute Auto 1200 /uL (1100-4500); Lymphocytes Percent Auto 12.3 % (25-40); Mean Corpuscular HGB Conc 33.4 % (30-36); Mean Corpuscular Hemoglobin 29.9 PG (26-34); Mean Corpuscular Volume 89.6 fL (80-100); Monocytes Absolute Auto 800 /uL (0-900); Monocytes Percent Auto 8.4 % (3-14); Neutrophils Absolute Auto 7400 /uL (1500-7000); Neutrophils Percent Auto 74.3 % (50-75); Platelet Count 289 X10^3/uL (150-400); Red Blood Cell Count 4.61 X10^6/uL (4.5-5.9); Red Cell Distribution Width 13.4 % (11.6-14.8)
[2022-07-27 08:13] LABS: Alanine Aminotransferase 9 IU/L (<50); Albumin 3.4 g/dL (3.5-5.0); Albumin Globulin Ratio 0.8 (1.0-2.8); Alkaline Phosphatase 75 U/L (38-126); Aspartate Aminotransferase 24 IU/L (17-59); BUN Creatinine Ratio 18.2 (6-22); Bilirubin Total 0.9 mg/dL (0.2-1.3); Blood Urea Nitrogen 28 mg/dL (9-20); Calcium 8.2 mg/dL (8.4-10.2); Carbon Dioxide 27 mmol/L (22-32); Chloride 101 mmol/L (98-107); Creatine Kinase 425 U/L (55-170); Estimated Glomerular Filt Rate 49 mL/min (>60); Globulin 4.2 g/dL (1.7-4.1); Glucose 151 mg/dL (80-110); HEMOLYSIS 36 (0-50); Lipase 1004 U/L (23-300); Potassium 4.1 mmol/L (3.4-5.1); Sodium 133 mmol/L (137-145); Total Protein 7.6 g/dL (6.3-8.2)
[2022-07-27 08:25] LABS: Troponin I 0.082 ng/mL (0.01-0.034)
[2022-07-27 08:28] LABS: CKMB % Relative Index 1.6 % (1.5-5.0); Creatine Kinase MB 6.66 ng/mL (<2.37)
[2022-07-27] MEDS: SODIUM CHLORIDE 0.9% 1,000 ML 150 ML IV ×3 (08:30→22:02)
[2022-07-27 10:23] LABS: Creatine Kinase 397 U/L (55-170)
[2022-07-27 10:36] LABS: Troponin I 0.077 ng/mL (0.01-0.034)
[2022-07-27 10:39] LABS: CKMB % Relative Index 1.5 % (1.5-5.0); Creatine Kinase MB 6.07 ng/mL (<2.37)
[2022-07-27 11:35] LABS: Bacteria Urine None Seen; Culture Indicated Urine Cult Not Indicated; RBC Urine 1-5/HPF (0-5/HPF); Squamous Epithelial Cell Urine 0-1 /HPF (0-5/HPF); WBC Urine 0-1/HPF (0-5/HPF)
--- NOTE | 2022-07-27 11:48 | DI.ECHO.S_ITS ---
[facility]---------+ [facility] +---------+ : : [address] : : : : [id number] : : : : Phone: [phone] Echocardiogram Report + + :Name: MERRY SANFORD Study Date: 07/28/2022 Height: 70 in : :[facility] ReadingLocation: Weight: 195 lb : : Gender: Male BSA: 2.1 m2 : :: 1955 Age: 66 yrs BP: 182/96 mmHg: :Reason For Study: SYNCOPE, ELEVATED TROPONIN HR: 65 : :Ordering Physician: JAYLON, : :YANNI Clark Performed By: FLO KUMAR : :Referring: YANNI IYER : + + Interpretation Summary Normal left ventricle size with ejection fraction 55-60%. Diastolic parameters suggest a relaxation abnormality of the left ventricle, consistent with probable normal filling pressures. Moderately dilated left atrium. No signifcant valvular abnormality. The right ventricular systolic pressure is estimated to be at least 36 mmHg based on an estimated right atrial pressure of 3 mm Hg. The ascending aorta is mildly enlarged. Procedure: A two-dimensional transthoracic echocardiogram with color flow and Doppler was performed. The study quality was technically adequate. There is no prior echocardiogram noted for this patient. The patient was in normal sinus rhythm during the exam. Left Ventricle: The left ventricle is normal in size. Left ventricular wall thickness is normal. The ejection fraction is estimated to be 55-60%. There are no focal wall motion abnormalities. Diastolic parameters suggest a relaxation abnormality of the left ventricle, consistent with probable normal filling pressures. Right Ventricle: The right ventricle is normal in size and function. Atria: The left atrium is moderately dilated. Right atrial size is normal. There is no Doppler evidence for an interatrial shunt. Mitral Valve: The mitral valve leaflets are slightly calcified. There is trace mitral regurgitation. Aortic Valve: The aortic valve is trileaflet. The aortic valve opens well. The aortic valve is slightly calcified. There is no aortic valve stenosis. No aortic regurgitation is present. Tricuspid Valve: The tricuspid valve is normal. There is mild tricuspid regurgitation. The right ventricular systolic pressure is estimated to be at least 36 mmHg based on an estimated right atrial pressure of 3 mm Hg. Pulmonic Valve: The pulmonic valve leaflets are thin and pliable; valve motion is normal. There is no pulmonic valvular regurgitation. Great Vessels: The aortic root is mildly dilated. The ascending aorta is mildly enlarged. The IVC is of normal diameter and collapses greater than 50% with a sniff. This suggests a low right atrial pressure of 3 mm Hg. Pericardium/ Pleura There is no pericardial effusion. There is no pleural effusion. MMode/2D Measurements & Calculations LVIDd: 4.2 cm LVOT diam: 2.4 cm LVIDs: 3.0 cm Ao root diam: 4.0 cm FS: 28.1 % asc Aorta Diam: 3.8 cm IVSd: 1.0 cm LVPWd: 1.0 cm LV tristan. diameter/BSA (cm/m^2): 2.0 LV sys. diameter/BSA (cm/m^2): 1.5 LA A2 area: 19.4 cm2 RA long axis: 5.1 cm LA A4 area: 15.8 cm2 RA area: 14.4 cm2 LA length (vol): 4.5 cm RA vol: 34.8 ml LA vol: 58.4 ml RA : 16.8 ml/m2 LA vol index: 28.3 ml/m2 IVC diam: 1.6 cm TAPSE: 2.4 cm Doppler Measurements & Calculations Ao V2 max: 108.7 cm/sec LVOT Max Gilberto: 81.0 cm/sec Ao V2 mean: 82.3 cm/sec LV V1 max P.6 mmHg Ao max P.7 mmHg LV V1 VTI: 18.6 cm Ao mean P.9 mmHg DILAN(I,D): 3.4 cm2 Ao V2 VTI: 24.4 cm DILAN(V,D): 3.3 cm2 sev ratio: 0.76 DILAN indexed to BSA (cm^2/m^2): 1.6 MV E max gilberto: 78.6 cm/sec TR max gilberto: 286.2 cm/sec MV A max gilberto: 84.9 cm/sec TR max P.8 mmHg MV E/A: 0.93 PA V2 max: 58.6 cm/sec Med Peak E' Gilberto: 6.6 cm/sec PA V2 mean: 44.7 cm/sec E/E' med: 11.9 PA mean P.85 mmHg Lat Peak E' Gilberto: 5.5 cm/sec PA pr(Accel): 22.5 mmHg E/E' lat: 14.4 E/e' average: 13.1 MV dec time: 0.23 sec SV(LVOT): 82.2 ml Electronically signed by: Nithya Morin on Reading Physician:07/28/2022 12:10 PM
--- NOTE | 2022-07-27 11:55 | PM.HP.1 ---
History of Present Illness History of Present Illness Chief complaint: fell and hit back of head and hit tailbone Narrative: Digna Fisher is a 66yo M with PMH of HTN, CKD, DM2 and parkison's disease who presents after syncope at home. Patient notes he woke up early this morning at 5:30am with a headache which felt like increased pressure in his head. He went to the bathroom then lost consciousness while standing at sink. heard patient hit the floor. He did strike his head but not hard. No post-ictal state or seizure-like activity noted by . Brought to the ED where his BP was 201/90. Head CT negative. BP improved to 160's sytolic without intervention. Patient states he hasn't been using his CPAP the past 4 nights due to cold-like symptoms making his nose plugged. He has gotten only 3-4 hours of sleep per night due to this. He says his BP usually runs in 130's. He took his home losartan last night. Patient denies CP, SOB, lightheadedness, dizziness, or NV. COUNTS INCLUDE 234 BEDS AT THE [facility] Medical History Diabetes Parkinsons disease Social History household members: spouse Smoking Status: Never smoker alcohol intake: former Meds Home Medications and Allergies Allergies Allergy/AdvReac Type Severity Reaction Status Date / Time No Known Drug Allergies Allergy Verified 06/23/20 11:22 Review of Systems Review of Systems Narrative: All other systems reviewed with the patient and are negative unless otherwise stated. Exam Vital Signs (past 8 hours): - 07/27/22 06:43 07/27/22 07:52 07/27/22 07:55 Temperature 97.4 F L Pulse Rate 89 71 Respiratory Rate 17 24 Blood Pressure 159/74 H 201/90 H Pulse Oximetry 97 97 Oxygen Delivery Method Room Air 07/27/22 07:55 07/27/22 08:00 07/27/22 08:00 Temperature Pulse Rate 68 66 Respiratory Rate 18 17 Blood Pressure 180/84 H Pulse Oximetry 96 97 Oxygen Delivery Method 07/27/22 08:15 07/27/22 08:15 07/27/22 08:30 Temperature Pulse Rate 70 Respiratory Rate 14 Blood Pressure 178/85 H 179/92 H Pulse Oximetry 99 Oxygen Delivery Method 07/27/22 08:30 07/27/22 08:45 07/27/22 08:45 Temperature Pulse Rate 67 72 Respiratory Rate 18 21 Blood Pressure 183/86 H Pulse Oximetry 98 97 Oxygen Delivery Method 07/27/22 09:00 07/27/22 09:00 07/27/22 09:15 Temperature Pulse Rate 69 Respiratory Rate 15 Blood Pressure 182/84 H 191/89 H Pulse Oximetry 97 Oxygen Delivery Method 07/27/22 09:15 07/27/22 09:30 07/27/22 09:31 Temperature Pulse Rate 69 72 71 Respiratory Rate 12 15 13 Blood Pressure Pulse Oximetry 97 99 97 Oxygen Delivery Method 07/27/22 09:31 07/27/22 09:46 07/27/22 09:46 Temperature Pulse Rate 73 Respiratory Rate 12 Blood Pressure 204/95 H 202/88 H Pulse Oximetry 99 Oxygen Delivery Method Oxygen Delivery Method Room Air Narrative Exam Narrative: GEN: no acute distress HEENT: moist mucous membranes, PERRL NECK: trachea midline, no JVD CV: regular rate and rhythm, no murmurs PULM: clear bilaterally ABD: soft, nontender, nondistended, no organomegaly EXT: warm and well perfused with no edema NEURO: awake, alert, oriented, no focal deficits Objective Labs 07/27/22 07:55 07/27/22 07:55 Labs: Laboratory Results - last 24 hr 07/27/22 07/27/22 07/27/22 07:55 07:55 10:05 WBC 10.0 RBC 4.61 Hgb 13.8 Hct 41.3 MCV 89.6 MCH 29.9 MCHC 33.4 RDW 13.4 Plt Count 289 Neut % (Auto) 74.3 Lymph % (Auto) 12.3 L [place] % (Auto) 8.4 Eos % (Auto) 4.7 H Baso % (Auto) 0.3 Neut # (Auto) 7400 H Lymph # (Auto) 1200 [place] # (Auto) 800 Eos # (Auto) 500 H Baso # (Auto) 0 Sodium 133 L Potassium 4.1 Chloride 101 Carbon Dioxide 27 BUN 28 H Creatinine 1.54 H Estimated GFR 49 L BUN/Creatinine Ratio 18.2 Glucose 151 H Calcium 8.2 L Total Bilirubin 0.9 AST 24 ALT 9 Alkaline Phosphatase 75 Total Creatine Kinase 425 H 397 H CK-MB (CK-2) 6.66 H 6.07 H CK-MB (CK-2) Rel Index 1.6 1.5 Troponin I 0.082 H 0.077 H Total Protein 7.6 Albumin 3.4 L Globulin 4.2 H Albumin/Globulin Ratio 0.8 L Lipase 1004 H Urine RBC Urine WBC Ur Squamous Epith Cells Urine Bacteria Ur Culture Indicated? 07/27/22 11:00 WBC RBC Hgb Hct MCV MCH MCHC RDW Plt Count Neut % (Auto) Lymph % (Auto) [place] % (Auto) Eos % (Auto) Baso % (Auto) Neut # (Auto) Lymph # (Auto) [place] # (Auto) Eos # (Auto) Baso # (Auto) Sodium Potassium Chloride Carbon Dioxide BUN Creatinine Estimated GFR BUN/Creatinine Ratio Glucose Calcium Total Bilirubin AST ALT Alkaline Phosphatase Total Creatine Kinase CK-MB (CK-2) CK-MB (CK-2) Rel Index Troponin I Total Protein Albumin Globulin Albumin/Globulin Ratio Lipase Urine RBC 1-5/hpf Urine WBC 0-1/hpf Ur Squamous Epith Cells 0-1 /hpf Urine Bacteria None seen Ur Culture Indicated? Cult not indicated Assessment & Plan Assessment & Plan narrative: # hyptertensive emergency -patient presented with BP up to 204/95 with evidence of end-organ damage due to troponin elevation -likely secondary to lack of CPAP use the past 4 days due to URI symptoms, pt reports compliance with his losartan -continue home losartan -will consider adding chlorthalidone 12.5mg daily -BP now improved to 160's systolic so no nicardipine drip needed -labetalol PRN for SBP >180 # acute syncope -patient notes headache since waking up then passing out, unclear cause. No seizure activity, CT head negative. -check orthostatic vitals -check echo -tele # elevated troponin -troponin peak of 0.082 on arrival to ED, then downtrended -no CP or EKG changes, likely due to HTN emergency -echo as above -nuclear stress ordered -NPO at midnight # parkison's disease -continue home sinemet # CKD -Cr at baseline of 1.5 -avoid nephrotoxic agents # type 2 diabetes -listed in history but not on meds -check A1c # ALIYA -patient reports no CPAP use the past 4 days due to URI symptoms Code status is full code. COVID negative. DVT prophylaxis with subq heparin. Proxy is . I have reviewed home meds and used all available resources to reconcile the home meds. This patient will be admitted as inpatient and will require greater than 2 midnights of hospital time to treat hypertensive emergency and troponin elevation.
[2022-07-27 12:29] LABS: Cholesterol 137 mg/dL (140-199); HDL Cholesterol 56 mg/dL (40-60); LDL Cholesterol Calculated 69 mg/dL (<100); Magnesium 1.9 mg/dL (1.6-2.3); Triglycerides 58 mg/dL (35-150)
[2022-07-27 12:42] LABS: COVID19 -Nasal RAPID Negative (Negative)
[2022-07-27] MEDS: ASPIRIN EC 81 MG TABLET PO (12:50)
[2022-07-27] MEDS: ACETAMINOPHEN 325 MG TABLET 650 MG PO (14:48)
[2022-07-27] MEDS: CARBIDOPA-LEVODOPA ER 50/200 TABLET 1 EACH PO ×2 (14:48→21:28)
[2022-07-27] MEDS: CARBIDOPA-LEVODOPA 25/100 TABLET 1.5 EACH PO ×2 (14:48→21:28)
[2022-07-27 15:56] LABS: MRSA (Nasal) PCR Not Detected (Not Detect)
[2022-07-27] MEDS: HEPARIN 5,000 UNIT/ML VIAL 5000 UNIT SUBCUT (21:30)
[2022-07-28] VITALS: BP 137/71; PULSE 65; RESP 17; TEMP 35.9; O2SAT 95
[2022-07-28 01:06] LABS: Labcorp Hemoglobin (Hb) A1c 8.7 % (4.8-5.6)
[2022-07-28] MEDS: SODIUM CHLORIDE 0.9% 1,000 ML 150 ML IV (03:56)
[2022-07-28 04:00] VITALS: BP 182/96; PULSE 73; RESP 18; TEMP 37.1; O2SAT 99
[2022-07-28 04:30] LABS: Add Manual Diff / Slide Review NO; Basophils Absolute Auto 0 /uL (0-100); Basophils Percent Auto 0.5 % (0-2); Eosinophils Absolute Auto 600 /uL (0-450); Eosinophils Percent Auto 7.6 % (2-4); Hematocrit 40.6 % (41-53); Hemoglobin 13.7 g/dL (13.5-17.5); Lymphocytes Absolute Auto 2200 /uL (1100-4500); Lymphocytes Percent Auto 26.8 % (25-40); Mean Corpuscular HGB Conc 33.7 % (30-36); Mean Corpuscular Hemoglobin 30.3 PG (26-34); Mean Corpuscular Volume 89.8 fL (80-100); Monocytes Absolute Auto 700 /uL (0-900); Monocytes Percent Auto 8.1 % (3-14); Neutrophils Absolute Auto 4600 /uL (1500-7000); Platelet Count 270 X10^3/uL (150-400); Red Blood Cell Count 4.52 X10^6/uL (4.5-5.9); Red Cell Distribution Width 13.1 % (11.6-14.8); White Blood Cell Count 8.1 X10^3/uL (4.5-11.0)
[2022-07-28 04:46] LABS: BUN Creatinine Ratio 17.1 (6-22); Blood Urea Nitrogen 21 mg/dL (9-20); Carbon Dioxide 24 mmol/L (22-32); Chloride 103 mmol/L (98-107); Estimated Glomerular Filt Rate > 60 mL/min (>60); Glucose 152 mg/dL (80-110); HEMOLYSIS < 15 (0-50); Potassium 3.8 mmol/L (3.4-5.1); Sodium 133 mmol/L (137-145)
[2022-07-28 04:56] LABS: Troponin I 0.068 ng/mL (0.01-0.034)
--- NOTE | 2022-07-28 06:35 | PC.NURSE ---
Patient awake alert, no syncopal episodes noted.
[2022-07-28 07:39] VITALS: BP 159/76; PULSE 81; RESP 18; TEMP 36.4; O2SAT 100
[2022-07-28] MEDS: CARBIDOPA-LEVODOPA 25/100 TABLET 1.5 EACH PO (08:40)
[2022-07-28] MEDS: INSULIN LISPRO 100 UNIT/ML 3ML VIAL SUBCUT ×2 (08:41→12:59)
[2022-07-28] MEDS: ASPIRIN EC 81 MG TABLET PO (08:42)
[2022-07-28] MEDS: HEPARIN 5,000 UNIT/ML VIAL 5000 UNIT SUBCUT (08:42)
[2022-07-28] MEDS: CARBIDOPA-LEVODOPA ER 50/200 TABLET 1 EACH PO (08:42)
--- NOTE | 2022-07-28 09:02 | PM.EVENT ---
Event Note Event Note (Rapid Response, Code, or fall): Patient with mildly elevated troponins which are trending down. Patient with no chest pain or EKG changes. Mildly elevated troponin likely due to recent fall. May proceed with stress test today.
[2022-07-28] MEDS: INSULIN GLARGINE 100 UNIT/ML 3ML PEN 10 UNIT SUBCUT (09:14)
[2022-07-28] MEDS: LOSARTAN 50 MG TABLET 100 MG PO (09:14)
--- NOTE | 2022-07-28 10:39 | CM.DANOTE ---
DCP: Case received, EMR reviewed and met with patient. Introduced self and role. Was able to obtain information regarding patient's baseline activity level at home prior to hospitalization. DCP assessment completed with information currently available. Patient is a 66 year old male who admitted yesterday afternoon to the care of the hospitalist team. PCP: [place] Provider in [facility]. Payer: confirmed: Medicare/[facility]. Patient came to the hospital via private vehicle secondary to having a syncopal episode. Patient has history of insulin-dependent diabetes,as well as Parkinsons Disease. Notes indicate that patient had a headache prior to falling down, but was not 100% sure of this. Patient was noted to have a hypertensive emergency, blood pressure was 204/95. Troponin had been elevated as well. Patient does have O.T, and P.T. orders. Met with patient in his room. He was sitting up in his chair, was on his cell phone. Confirmed that he resides in [place] with his significant other, stated, she's not my , she's my girlfriend, her name is Chacha. He is independent at baseline. His primary provider is at the [facility] clinic in [facility], unable to state the name. he is eager to go home today. P: DCP to continue to follow. Patient should be able to go home when deemed medically stable, possibly today, will work with the therapy team. Sada Mcgee RN/Behavioral Health Counselor Discharge Planning/Care Management CM Discharge Assessment Start: 07/28/22 10:36 Freq: Status: Active Protocol: Document 07/28/22 10:37 (Rec: 07/28/22 10:39 [id number]) Discharge Planning Assessment Advance Directives? No History Provided By Patient Prior Living Arrangements House Household Members spouse Type of transporation used prior to Drives own vehicle admit Independent with ADL's Yes Is patient alert and oriented? Yes Caregiver for Another No Barriers to Discharge No Discharge Plan Home Transportation Arrangement Significant other Referrals Initiated None needed Whiteboard Updated in Patient Room with Yes name and ext. # of Corner Block Cutter Review Status In Process Next Review Type Continued Stay Review
[2022-07-28 11:00] VITALS: BP 131/72; PULSE 68; RESP 18; TEMP 36.2; O2SAT 98
--- NOTE | 2022-07-28 11:30 | PT.IIE ---
Current Diagnoses Hypertensive emergency (07/27/22) Medical History (Last Reviewed 07/27/22 @ 07:34 by Bennett Tamayo DO) Diabetes Parkinsons disease Physical Therapy Inpatient Evaluation/Re-Eval M1 PT/OT-IP Prior Functional Status Start: 07/27/22 14:42 Freq: NEEDED Status: Active Protocol: Document 07/28/22 11:30 AW (Rec: 07/28/22 12:09 AW [id number]) Medical Review Prior Functional Status Medical History Reviewed Yes Communication WNL. Pt is an effective verbal communicator. Mobility and Gait Independent without assistive device. Activities of Daily Living and IADL's Independent with all ADL's. Does not drive secondary to Parkinsonian tremors. Prior Functional Level (Other details) Pt states he was exposed to AFFF in the [place] and is being followed by a longitudinal study. Social History Household Members spouse,family Living Arrangements House Number of Floors (Floors) Two Floors Number of Stairs To Enter/Railing? Stairs to enter. Stairs up to bedroom level with rails. Home Environment High Toilet,Walk in Shower Home Equipment Front Wheel Walker,Straight Cane,Shower Seat with Backrest ,Grab Bars Near Toilet,Grab Bars In Shower Employment Status Retired Additional Social History Comment Pt is retired [employer]. He lives in [place] with his spouse Chacha and their adult son. M2 PT-IP Current Condition Start: 07/27/22 14:42 Freq: NEEDED Status: Active Protocol: Document 07/28/22 11:30 AW (Rec: 07/28/22 12:09 AW [id number]) Physical Therapy Current Condition Current Condition Evaluation Date 07/28/22 Treatment Diagnosis syncope, hypertensive emergency, PD, impaired balance and gait Onset Date 07/27/22 M3 PT-IP Subjective Start: 07/27/22 14:42 Freq: NEEDED Status: Active Protocol: Document 07/28/22 11:30 AW (Rec: 07/28/22 12:09 AW [id number]) Subjective Physical Therapy Visit Type Type Initial Evaluation Visit Start Time 11:08 Visit Stop Time 11:30 Total Visit Minutes 22 Notes PT saw pt between stages of stress test. Physical Therapy Visit Comments Patient Comments Pt is willing to participate with PT Therapy Pain Assessment Pain When Pain Assessed During Mobility Pain Present Pain Present Pain Reported Location left glut Scale Used not quantified M4 PT-IP Mobility and Gait Start: 07/27/22 14:42 Freq: NEEDED Status: Active Protocol: Document 07/28/22 11:30 AW (Rec: 07/28/22 12:09 AW [id number]) PT-Bed Mobility Assessment Supine to Sit Supine to Sit Independent Sit to Supine Sit to Supine Independent PT-Transfer Assessment Sit to and From Stand Sit to and from Stand Independent Equipment Transfer Assistive Device None Orthotic/Prosthetic Devices or Brace: No Transfers Transfer Destination Bed Transfer Technique Stand Step Pivot Transfer Ability Level of Assist Independent Comments Mobility Comments Pt was encountered lying in bed. He consented to PT assessment. Transfers were completely independent. Orthostatic BP was assessed and was WNL. Gait Assessment Gait Gait Assistance Required: Standby Assistance Distance (Feet) 300 Assistive Devices Assistive Device None,Gait Belt Gait Deviations General Gait Pattern Flexed Trunk,Step-to Gait,Wide Based Gait Factors Limiting Gait Function Factors Limiting Gait Function Poor Balance Comments Gait Comments Pt is somewhat impulsive. He walks with wide ENMANUEL and vaguely ataxic pattern but has no observed LOB. He scores 16 /24 on Dynamic Gait Index, indicating increased risk of falls. Stair Climbing Assessment Evaluation Level of Assist On Stairs Standby Assistance Devices Stair Climbing Assistive Devices Right Railing Technique/Endurance Stair Climbing Direction Ascend and Descend Stair Climbing Technique Step Over Step Number of Steps Climbed 3 Query Text: Stair Climbing Set # Repetitions (reps) 2 PT-Balance Assessment Sitting Balance and Reactions Static Sitting Balance Ability Normal Dynamic Sitting Balance Ability Normal Standing Balance and Reactions Static Standing Balance Ability Good Dynamic Standing Balance Ability Fair Device Used no AD Functional Assessments Functional Tests Dynamic Gait Index 16/24 M5 PT-IP Objective Assessments Start: 07/27/22 14:42 Freq: NEEDED Status: Active Protocol: Document 07/28/22 11:30 AW (Rec: 07/28/22 12:09 AW [id number]) Orientation Orientation/Cognition Level of Alertness Alert Orientation Name,Day of Week,Place, Situation Language Function Ability No Deficits Noted Safety Awareness Understands Safety Issues Memory Description No Deficits Noted Gross Range of Motion Upper Extremity ROM Assessment Within Functional Limits Lower Extremity ROM Assessment Within Functional Limits Strength Upper Extremity Strength Assessment Within Functional Limits Lower Extremity Strength Assessment Within Functional Limits Sensation Assessment Sensation Gross Sensation WNL Muscle Tone Muscle Tone WNL No Comments Muscle Tone Comments BLE and BUE tremors noted at rest - mild this date. Pt states tremors and rigidity get noticably worse if he misses a dose of sinemet. M6 PT-IP Treatment Start: 07/27/22 14:42 Freq: NEEDED Status: Active Protocol: Document 07/28/22 11:30 AW (Rec: 07/28/22 12:09 AW [id number]) Physical Therapy Treatment Education Education Provided Safety M7 PT-IP Assessment and Plan Start: 07/27/22 14:42 Freq: NEEDED Status: Active Protocol: Document 07/28/22 11:30 AW (Rec: 07/28/22 12:09 AW [id number]) PT Summary Assessment and Plan Potential Rehabilitation Potential Good Summary Impairments Balance,Gait Assessment Summary Digna is a 66 yo man admitted after a fall due to syncopal episode. PMH includes Parkinson's disease, insulin dependent diabetes, HTN, CKD, and ALIYA. 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 PD was diagnosed at least 15 years ago and pt states he attends outpatient PT. He is independent with all mobility and ADL's at baseline but does not drive due to Parkinsonian tremors. CLOF: Pt was found resting in bed after the first stage of his stress test. He was agreeable to PT assessment. Pt presents with normal AROM and strength all extremities. Tremors at rest are mild. All transfers were completed independently. Gait was notable for wide ENMANUEL and vaguely ataxic pattern but no LOB. Score on Dynamic Gait Index was 16/24 which does indicate increased falls risk. Orthostatic VS were assessed and were unremarkable. Pt is likely mobilizing at a level consistent with his baseline. No acute PT needs are identified. Pt will be safe to discharge home with resumption of outpatient PT once medically stable. Frequency of Treatment Frequency Of Treatment Discharge Recommendations To Nursing Amount of Assist Needed Independent Discharge Recommendations PT Discharge Recommendations Home,Outpatient PT Transportation Needs at Discharge Private Vehicle
--- NOTE | 2022-07-28 12:57 | PM.DS.1 ---
History of Present Illness History of Present Illness Chief complaint: fell and hit back of head and hit tailbone Narrative: Digna Fisher is a 66yo M with PMH of HTN, CKD, DM2 and parkison's disease who presents after syncope at home. Patient notes he woke up early this morning at 5:30am with a headache which felt like increased pressure in his head. He went to the bathroom then lost consciousness while standing at sink. heard patient hit the floor. He did strike his head but not hard. No post-ictal state or seizure-like activity noted by . Brought to the ED where his BP was 201/90. Head CT negative. BP improved to 160's sytolic without intervention. Patient states he hasn't been using his CPAP the past 4 nights due to cold-like symptoms making his nose plugged. He has gotten only 3-4 hours of sleep per night due to this. He says his BP usually runs in 130's. He took his home losartan last night. Patient denies CP, SOB, lightheadedness, dizziness, or NV. Discharge Providers Provider Date of admission: 07/27/22 12:23 Discharge Date: 07/28/22 Consults: 07/27/22 11:48 Consult to Occupational Therapy Evaluate & Treat Comment: Physician Instructions: Evaluate and treat Consult to Physical Therapy Evaluate & Treat Comment: Physician Instructions: Evaluate and Treat Discharge provider: Fredy Amato DO Summary Hospital Course Discharge Diagnosis: # hyptertensive emergency -patient presented with BP up to 204/95 with evidence of end-organ damage due to troponin elevation -likely secondary to lack of CPAP use the past 4 days due to URI symptoms, pt reports compliance with his losartan -continue home losartan -BP now improved to 160's systolic so no nicardipine drip needed -labetalol PRN for SBP >180 # acute syncope -patient notes headache since waking up then passing out, unclear cause but likely orthostatic hypotension from PD. No seizure activity, CT head negative. -orthostatic vital positive when going from lying to sitting, but then improved with standing -echo with normal EF of 55-60%, mod dilated LA, diastolic relaxation abnormality and RVSP 36 -tele # elevated troponin -troponin peak of 0.082 on arrival to ED, then downtrended -no CP or EKG changes, likely due to HTN emergency -echo as above -nuclear stress ordered -NPO at midnight # parkison's disease -continue home sinemet # CKD -Cr at baseline of 1.5 -avoid nephrotoxic agents # type 2 diabetes -listed in history but not on meds -check A1c # ALIYA -patient reports no CPAP use the past 4 days due to URI symptoms Hospital Course: Admitted for syncope at home. Regained consciousness immediately. BP in ED very high at 205 systolic and troponin at 0.082 consistent with possible hypertensive emergency. However BP improved. Echo was reassuring and stress test was low-risk study. Syncope likely due to orthostatic hypotension from his parkinson's, as patient had positive orthostatic when going from lying to sitting. Home losartan was left unchanged on discharge. Time Spent with Patient Time spent: Greater than 30 minutes Exam Vital Signs (past 8 hours): - 07/28/22 07:39 07/28/22 08:45 07/28/22 11:00 Temperature 97.6 F 97.1 F L Pulse Rate 81 68 Respiratory Rate 18 18 Blood Pressure 159/76 H 131/72 Pulse Oximetry 100 98 Oxygen Delivery Method Room Air Oxygen Flow Rate 0 0 Oxygen Delivery Method Room Air Oxygen Flow Rate 0 Narrative Exam Narrative: GEN: no acute distress HEENT: moist mucous membranes, PERRL NECK: trachea midline, no JVD CV: regular rate and rhythm, no murmurs PULM: clear bilaterally ABD: soft, nontender, nondistended, no organomegaly EXT: warm and well perfused with no edema NEURO: awake, alert, oriented, no focal deficits Objective Labs 07/28/22 03:45 07/28/22 03:45 Labs: Laboratory Results - last 24 hr 07/27/22 07/27/22 07/28/22 07:55 14:26 03:45 WBC RBC Hgb Hct MCV MCH MCHC RDW Plt Count Neut % (Auto) Lymph % (Auto) [place] % (Auto) Eos % (Auto) Baso % (Auto) Neut # (Auto) Lymph # (Auto) [place] # (Auto) Eos # (Auto) Baso # (Auto) Sodium Potassium Chloride Carbon Dioxide BUN Creatinine Estimated GFR BUN/Creatinine Ratio Glucose Hgb A1c (Ref Lab) 8.7 H Calcium Troponin I 0.068 H Nasal Screen MRSA (PCR) Not detected 07/28/22 07/28/22 03:45 03:45 WBC 8.1 RBC 4.52 Hgb 13.7 Hct 40.6 L MCV 89.8 MCH 30.3 MCHC 33.7 RDW 13.1 Plt Count 270 Neut % (Auto) 57.0 Lymph % (Auto) 26.8 [place] % (Auto) 8.1 Eos % (Auto) 7.6 H Baso % (Auto) 0.5 Neut # (Auto) 4600 Lymph # (Auto) 2200 [place] # (Auto) 700 Eos # (Auto) 600 H Baso # (Auto) 0 Sodium 133 L Potassium 3.8 Chloride 103 Carbon Dioxide 24 BUN 21 H Creatinine 1.23 Estimated GFR > 60 BUN/Creatinine Ratio 17.1 Glucose 152 H Hgb A1c (Ref Lab) Calcium 8.0 L Troponin I Nasal Screen MRSA (PCR) [facility] Medical History Diabetes Parkinsons disease Social History household members: spouse and family Smoking Status: Never smoker alcohol intake: former Discharge Plan Discharge Plan Patient Disposition: Home Provider Discharge Comment: You were admitted for passing out, which was likely due to orthostatic hypotension from your parkinson's. I've included some reading material about this. Everything else checked out, including your heart echo, stress test and EKG which were normal. Discharge orders & Medications Prescriptions: Continued losartan 100 mg Tablet 100 mg PO DAILY rasagiline 1 mg Tablet 1 mg PO DAILY insulin glargine [Lantus U-100 Insulin] 100 unit/mL Solution 16 unit SUBCUT QAM Visit Report/Discharge Packet Instructions: DI for Orthostatic Hypotension Stand Alone Forms: Patient Portal/API, Stroke Signs & Symptoms
--- NOTE | 2022-07-28 13:37 | PM.DS.1 ---
History of Present Illness History of Present Illness Chief complaint: fell and hit back of head and hit tailbone Narrative: Digna Fisher is a 66yo M with PMH of HTN, CKD, DM2 and parkison's disease who presents after syncope at home. Patient notes he woke up early this morning at 5:30am with a headache which felt like increased pressure in his head. He went to the bathroom then lost consciousness while standing at sink. heard patient hit the floor. He did strike his head but not hard. No post-ictal state or seizure-like activity noted by . Brought to the ED where his BP was 201/90. Head CT negative. BP improved to 160's sytolic without intervention. Patient states he hasn't been using his CPAP the past 4 nights due to cold-like symptoms making his nose plugged. He has gotten only 3-4 hours of sleep per night due to this. He says his BP usually runs in 130's. He took his home losartan last night. Patient denies CP, SOB, lightheadedness, dizziness, or NV. Discharge Providers Provider Date of admission: 07/27/22 12:23 Discharge Date: 07/28/22 Consults: 07/27/22 11:48 Consult to Occupational Therapy Evaluate & Treat Comment: Physician Instructions: Evaluate and treat Consult to Physical Therapy Evaluate & Treat Comment: Physician Instructions: Evaluate and Treat Discharge provider: Fredy Amato DO Summary Hospital Course Discharge Diagnosis: # hyptertensive emergency -patient presented with BP up to 204/95 with evidence of end-organ damage due to troponin elevation -likely secondary to lack of CPAP use the past 4 days due to URI symptoms, pt reports compliance with his losartan -continue home losartan -will consider adding chlorthalidone 12.5mg daily -BP now improved to 160's systolic so no nicardipine drip needed -labetalol PRN for SBP >180 # acute syncope -patient notes headache since waking up then passing out, unclear cause. No seizure activity, CT head negative. -check orthostatic vitals -check echo -tele # elevated troponin -troponin peak of 0.082 on arrival to ED, then downtrended -no CP or EKG changes, likely due to HTN emergency -echo as above -nuclear stress ordered -NPO at midnight # parkison's disease -continue home sinemet # CKD -Cr at baseline of 1.5 -avoid nephrotoxic agents # type 2 diabetes -listed in history but not on meds -check A1c # ALIYA -patient reports no CPAP use the past 4 days due to URI symptoms Time Spent with Patient Time spent: Greater than 30 minutes Exam Vital Signs (past 8 hours): - 07/28/22 07:39 07/28/22 08:45 07/28/22 11:00 Temperature 97.6 F 97.1 F L Pulse Rate 81 68 Respiratory Rate 18 18 Blood Pressure 159/76 H 131/72 Pulse Oximetry 100 98 Oxygen Delivery Method Room Air Oxygen Flow Rate 0 0 Oxygen Delivery Method Room Air Oxygen Flow Rate 0 Narrative Exam Narrative: GEN: no acute distress HEENT: moist mucous membranes, PERRL NECK: trachea midline, no JVD CV: regular rate and rhythm, no murmurs PULM: clear bilaterally ABD: soft, nontender, nondistended, no organomegaly EXT: warm and well perfused with no edema NEURO: awake, alert, oriented, no focal deficits Objective Labs 07/28/22 03:45 07/28/22 03:45 Labs: Laboratory Results - last 24 hr 07/27/22 07/27/22 07/28/22 07:55 14:26 03:45 WBC RBC Hgb Hct MCV MCH MCHC RDW Plt Count Neut % (Auto) Lymph % (Auto) [place] % (Auto) Eos % (Auto) Baso % (Auto) Neut # (Auto) Lymph # (Auto) [place] # (Auto) Eos # (Auto) Baso # (Auto) Sodium Potassium Chloride Carbon Dioxide BUN Creatinine Estimated GFR BUN/Creatinine Ratio Glucose Hgb A1c (Ref Lab) 8.7 H Calcium Troponin I 0.068 H Nasal Screen MRSA (PCR) Not detected 07/28/22 07/28/22 03:45 03:45 WBC 8.1 RBC 4.52 Hgb 13.7 Hct 40.6 L MCV 89.8 MCH 30.3 MCHC 33.7 RDW 13.1 Plt Count 270 Neut % (Auto) 57.0 Lymph % (Auto) 26.8 [place] % (Auto) 8.1 Eos % (Auto) 7.6 H Baso % (Auto) 0.5 Neut # (Auto) 4600 Lymph # (Auto) 2200 [place] # (Auto) 700 Eos # (Auto) 600 H Baso # (Auto) 0 Sodium 133 L Potassium 3.8 Chloride 103 Carbon Dioxide 24 BUN 21 H Creatinine 1.23 Estimated GFR > 60 BUN/Creatinine Ratio 17.1 Glucose 152 H Hgb A1c (Ref Lab) Calcium 8.0 L Troponin I Nasal Screen MRSA (PCR) [facility] Medical History Diabetes Parkinsons disease Social History household members: spouse and family Smoking Status: Never smoker alcohol intake: former Discharge Plan Discharge Plan Patient Disposition: Home Provider Discharge Comment: You were admitted for passing out, which was likely due to orthostatic hypotension from your parkinson's. I've included some reading material about this. Everything else checked out, including your heart echo, stress test and EKG which were normal. Discharge orders & Medications Prescriptions: Continued losartan 100 mg Tablet 100 mg PO DAILY rasagiline 1 mg Tablet 1 mg PO DAILY insulin glargine [Lantus U-100 Insulin] 100 unit/mL Solution 16 unit SUBCUT QAM Visit Report/Discharge Packet Instructions: DI for Orthostatic Hypotension Stand Alone Forms: Patient Portal/API, Stroke Signs & Symptoms
--- NOTE | 2022-07-28 18:40 | DI.NM.S_ITS ---
DATE OF SERVICE: 07/28/2022 PROCEDURE: Pharmacological perfusion study INDICATIONS: Syncope with abnormal troponin with underlying type 2 DM, HTN, CKD. RADIOPHARMACEUTICAL: 26 millicurie technetium-99m Myoview IV was injected at stress and 9.2 millicurie technetium-99m Myoview IV was injected at rest. CARDIAC STRESS: The patient underwent IV Lexiscan perfusion study under the supervision of an attending staff using standard intravenous Lexiscan as per protocol. She remained hemodynamically stable. Baseline rhythm was sinus with right bundle branch block. During stress, no new convincing ischemic changes seen. Some occasional isolated PVCs without any complex ventricular tachycardia. RAW DATA: There is increased subdiaphragmatic activity. GATED STUDY: Stress LV ejection fraction is 76 percent without any obvious wall motion abnormalities. TID ratio 1.16, which is within normal limits. Lung/heart ratio 0.35, which is within normal limits. MYOCARDIAL PERFUSION SCAN: Stress supine, resting supine, and stress prone images were compared to each other. Stress supine and resting supine images revealed small size, mildly decreased perfusion of inferior wall, which got significantly improved during stress prone images suggestive of diaphragmatic tissue attenuation artifact. Summed stress score and resting score is zero. CONCLUSION: This is a normal myocardial perfusion study with evidence of diaphragmatic tissue attenuation artifact, which got resolved during stress prone images. No convincing ischemia or infarction. Preserved left ventricular function. Baseline right bundle branch block. No complex arrhythmias. Overall, low-risk myocardial perfusion scan. PhillipSeanitha - DENTAL TECHNOLOGIST/curry/kye doc#: [id number]/job#: [id number] dd: 07/28/2022 12:50:00 dt: 07/28/2022 17:53:00 DICTATING MD/COPIES TO: Guerda Chiang MD COPIES MNE: TASHA;
== END 2022-07-28 13:45 | disposition home or self-care (01) ==
LOC: ED 12:23 → AC 12:27 → ICU 07-28 07:14 → AC 07-29 06:57
PROVIDERS: Emergency Medicine; Admitting Provider Student in an Organized Health Care Education/Training Program; Emergency Provider Emergency Medicine; Referring Provider Emergency Medicine; Visit Provider Student in an Organized Health Care Education/Training Program
DX: I16.1 Hypertensive emergency (principal); R77.8 Other specified abnormalities of plasma proteins; W18.39XA Other fall on same level, initial encounter; Y92.009 Unspecified place in unspecified non-institutional (private) residence as the place of occurrence of the external cause; E11.9 Type 2 diabetes mellitus without complications; G20 Parkinson's disease; I10 Essential (primary) hypertension; G47.33 Obstructive sleep apnea (adult) (pediatric); Z79.4 Long term (current) use of insulin; N18.9 Chronic kidney disease, unspecified; Z20.822 Contact with and (suspected) exposure to COVID-19
CPT/HCPCS: 36415; 70450; 71045; 72100; 78452; 80048; 80053; 80061; 81003; 81015; 82550; 82553; 82962; 83036; 83690; 83735; 84484; 85025; 87635; 87797; 93005; 93010; 93017; 93306; 96360; 96361; 96366; 96372; 97162; 99284; C9803; G0378; A9502; J1644; J1815; J2785

== ENCOUNTER 2023-01-30 17:45 | Emergency (ER) | payer MEDICARE, OTHER, SELFPAY ==
[2022-07-27 15:11] VITALS: BMI 27.9
[2023-01-30] VITALS (15 sets, daily range): BP systolic 147–212; BP diastolic 74–120; PULSE 79–90; RESP 14–33; TEMP 36.4; O2SAT 97–100; BMI 28.8
--- NOTE | 2023-01-30 17:50 | DI.RAD.S_ITS ---
PROCEDURE: XR CHEST 1V INDICATIONS: chest pain TECHNIQUE: One view of the chest was acquired. COMPARISON: [facility], CR, XR CHEST 1 VIEW, 06/04/2021, 10:54. [facility], CR, XR CHEST 1V, 07/27/2022, 6:41. FINDINGS: Surgical changes and devices: None. Lungs and pleura: An incomplete inspiratory result is noted, causing a crowded appearance to the lung markings. No focal infiltrates are seen. No pneumothorax or significant pleural effusions are seen. Mediastinum: The cardiac contours are within normal limits. The aorta demonstrates calcification and tortuosity. Bones and chest wall: Likely bone island seen involving the right anterior 6th rib, as before. Age-appropriate bony degenerative changes are seen. Overlying soft tissues appear unremarkable. IMPRESSION: Limited portable chest examination, without a significant cardiopulmonary abnormality identified. Dictated by: Jose Cruz Regalado M.D. on 01/30/2023 at 17:40 Approved by: Jose Cruz Regalado M.D. on 01/30/2023 at 17:41
--- NOTE | 2023-01-30 18:17 | ED_ITS ---
HPI - Weakness General Chief complaint: Syncope Stated complaint: GLF/ weakness/no thinners Time Seen by Provider: 01/30/23 18:16 Source: patient and EMS Mode of arrival: EMS Limitations: no limitations History of Present Illness HPI Narrative: This is a 77-year-old male with diabetes type 2 on insulin, hypertension, Parkinson's disease, sciatica who presents with what is described as a syncopal episode.? Patient and family state he had been at [facility] for follow-up visit for chronic sciatica.? He had been sitting a lot of the day had gone directly outside to the doctor clean the grill turned to stand and then fell backwards onto the floor.? Patient was witnessed fell backwards.? Had about 10 or 15 seconds where he was completely out and then started asking questions fairly quickly came back to normal mentation and was mentating normally by the time medics arrived.? Son states he was sort of twitchy.? Patient states that he felt really cold right before it happened but did not have any other warning signs or symptoms earlier today.? He is had 1 prior episode in July and had some workup and they told him it might be secondary to his Parkinson's and what sounds like autonomic dysfunction.? Patient states little bit of mild headache he describes it as dull, some neck pain on the side.? Denies any chest pain, no shortness of breath, no nausea no vomiting.? No abdominal back or flank pain.? His chronic sciatica in his left leg is present.? Denies any numbness, tingling or weakness that is new in his extremities.? No loss of bowel or bladder control.? No diarrhea constipation, no dysuria urgency or frequency.? No incontinence.? Patient states his levodopa carbidopa was increased a couple weeks ago but no other recent medication changes.? [facility], follows with Neurology for his Parkinson's.? No tobacco, occasional alcohol, no illicit.? He is accompanied by his family who also witnessed this event.? They also note patient's blood sugars have been trending around the 200 range which is fairly typical but slightly higher than usual. Related Data Home Medications Medication Instructions Recorded Confirmed insulin glargine 100 unit/mL 16 unit SUBCUT QAM 07/27/22 07/27/22 subcutaneous solution (Lantus U-100 Insulin) losartan 100 mg tablet 100 mg PO DAILY 07/27/22 07/27/22 rasagiline 1 mg tablet 1 mg PO DAILY 07/27/22 07/27/22 Allergies Allergy/AdvReac Type Severity Reaction Status Date / Time No Known Drug Allergies Allergy Verified 06/23/20 11:22 Review of Systems Review of Systems ROS Unobtainable: All systems reviewed & are unremarkable except as noted in HPI and below Patient History Medical History Parkinsons disease Diabetes Social History household members: spouse and family Smoking Status: Never smoker alcohol intake: former Smoking Status: Never smoker alcohol intake frequency: 0-2 drinks per day Substance Use Type: does not use Exam Narrative Exam Narrative: GEN: Patient appears in mild distress.? Patient has flat affect. HEAD: No evidence of trauma, no raccoon/Parikh sign. NECK: Nontender, painless range of motion, trachea midline Negative Nexus criteria, there is no midline line tenderness, distracting injury, altered mental status, neuro deficit, recent EtOH. EYES: PERRLA, EOMI ENT: External inspection normal, trachea is midline, TM's are normal no hemotypanum, Nares are clear, no septal hematoma, no dental or oral injury, airway is normal and with normal occlusion, No bony tenderness RESP: Chest is nontender and has symmetric movement, no ecchymosis, breath sounds are normal no crackles, wheezes or rales CVS: Heart sounds are normal, no murmur noted, No JVD. ABG/GI: Nontender, soft, normal bowel sounds, no distention, no organomegaly, pelvic rock is negative.? No pulsatile mass or bruit. NEURO: Oriented AOx3, neuro is grossly intact, sensation and motor is normal all 4 extremities moving, cranial nerves II through XII are intact, GCS is 15 PSYCH: Normal mood and affect SKIN: Intact, warm and dry, no crepitus and without decubitus BACK: No CVA tenderness, no vertebral tenderness, no step-off's, no crepitus EXT: Atraumatic, hips are nontender, no pedal edema, normal color and temperature, normal range of motion of extremities with normal tendon exam, 2+ pulses in all four extremities Initial Vital Signs Initial Vital Signs: Vital Signs Pulse Rate 79 01/30/23 17:55 Respiratory Rate 26 H 01/30/23 17:55 Blood Pressure 155/74 H 01/30/23 17:55 Pulse Oximetry 97 01/30/23 17:55 Course Orders Ordered: ED Orders 01/30/23 20:40 Trop I [Troponin I] Stat 01/30/23 20:51 Urine Microscopic Stat 01/31/23 EKG-12 Lead Stat Discontinued Medications Aspirin (Aspirin 81 Mg Chew Tab) 324 mg PO NOW ONE Stop: 01/30/23 17:51 Last Admin: 01/30/23 19:23 Dose: Not Given Documented By: RB Hydroxyzine Pamoate (Hydroxyzine Pamoate 25 Mg Capsule) 25 mg PO NOW ONE Stop: 01/30/23 21:49 Last Admin: 01/30/23 22:15 Dose: 25 mg Documented By: HANANE Sodium Chloride (Normal Saline 0.9%) 1,000 mls @ 1,000 mls/hr IV BOLUS ONE Stop: 01/30/23 20:18 Last Infusion: 01/30/23 20:26 Dose: Infused Documented By: Admin: 01/30/23 19:26 Dose: 1,000 mls/hr Documented By: RB Vital Signs Vital signs: Vital Signs - 8 hr 01/30/23 20:30 01/30/23 20:30 01/30/23 21:00 Pulse Rate 89 90 Respiratory Rate 17 20 Blood Pressure 201/99 H Pulse Oximetry 99 100 01/30/23 21:00 01/30/23 21:30 01/30/23 22:00 Pulse Rate 90 88 Respiratory Rate 29 H 19 Blood Pressure 182/88 H Pulse Oximetry 01/30/23 22:13 01/30/23 22:13 Pulse Rate 82 Respiratory Rate 26 H Blood Pressure 176/120 H Pulse Oximetry MDM - Weakness Lab Data 01/30/23 18:26 01/30/23 18:26 Labs: Lab Results 01/30/23 01/30/23 01/30/23 Range/Units 18:26 19:05 20:40 WBC 6.5 (4.5-11.0) X10^3/uL RBC 4.24 L (4.5-5.9) X10^6/uL Hgb 13.1 L (13.5-17.5) g/dL Hct 38.7 L (41-53) % MCV 91.3 (80-100) fL MCH 30.9 (26-34) PG MCHC 33.8 (30-36) % RDW 14.0 (11.6-14.8) % Plt Count 291 (150-400) X10^3/uL Neut % (Auto) 64.0 (50-75) % Lymph % (Auto) 22.6 L (25-40) % [place] % (Auto) 9.1 (3-14) % Eos % (Auto) 3.8 (2-4) % Baso % (Auto) 0.5 (0-2) % Neut # (Auto) 4100 (4539-2167) /uL Lymph # (Auto) 1500 (1914-2341) /uL [place] # (Auto) 600 (0-900) /uL Eos # (Auto) 200 (0-450) /uL Baso # (Auto) 0 (0-100) /uL PT 11.5 (10.1-12.7) SECONDS INR 1.0 (0.9-1.3) APTT 28 (26-36) SECONDS Sodium 132 L (137-145) mmol/L Potassium 4.2 (3.4-5.1) mmol/L Chloride 99 (98-107) mmol/L Carbon Dioxide 24 (22-32) mmol/L BUN 31 H (9-20) mg/dL Creatinine 1.54 H (0.66-1.25) mg/dL Estimated GFR 49 L (>60) mL/min BUN/Creatinine Ratio 20.1 (6-22) Glucose 207 H (80-110) mg/dL Calcium 8.2 L (8.4-10.2) mg/dL Magnesium 2.0 (1.6-2.3) mg/dL Total Bilirubin 0.4 (0.2-1.3) mg/dL AST 27 (17-59) IU/L ALT 10 (<50) IU/L Alkaline Phosphatase 94 (38-126) U/L Total Creatine Kinase 214 H (55-170) U/L Troponin I 0.067 H 0.067 H (0.01-0.034) ng/mL NT-Pro-B Natriuret Pep 92 (<125) pg/mL Total Protein 7.8 (6.3-8.2) g/dL Albumin 3.7 (3.5-5.0) g/dL Globulin 4.1 (1.7-4.1) g/dL Albumin/Globulin Ratio 0.9 L (1.0-2.8) Lipase 251 (23-300) U/L Urine RBC (0-5/HPF) Urine WBC (0-5/HPF) Ur Squamous Epith Cells (0-5/HPF) Urine Bacteria (None) Ur Culture Indicated? SARS-CoV-2 (PCR) Negative (Negative) 01/30/23 Range/Units 20:51 WBC (4.5-11.0) X10^3/uL RBC (4.5-5.9) X10^6/uL Hgb (13.5-17.5) g/dL Hct (41-53) % MCV (80-100) fL MCH (26-34) PG MCHC (30-36) % RDW (11.6-14.8) % Plt Count (150-400) X10^3/uL Neut % (Auto) (50-75) % Lymph % (Auto) (25-40) % Trego % (Auto) (3-14) % Eos % (Auto) (2-4) % Baso % (Auto) (0-2) % Neut # (Auto) (4259-6544) /uL Lymph # (Auto) (0868-8291) /uL Trego # (Auto) (0-900) /uL Eos # (Auto) (0-450) /uL Baso # (Auto) (0-100) /uL PT (10.1-12.7) SECONDS INR (0.9-1.3) APTT (26-36) SECONDS Sodium (137-145) mmol/L Potassium (3.4-5.1) mmol/L Chloride (98-107) mmol/L Carbon Dioxide (22-32) mmol/L BUN (9-20) mg/dL Creatinine (0.66-1.25) mg/dL Estimated GFR (>60) mL/min BUN/Creatinine Ratio (6-22) Glucose (80-110) mg/dL Calcium (8.4-10.2) mg/dL Magnesium (1.6-2.3) mg/dL Total Bilirubin (0.2-1.3) mg/dL AST (17-59) IU/L ALT (<50) IU/L Alkaline Phosphatase (38-126) U/L Total Creatine Kinase (55-170) U/L Troponin I (0.01-0.034) ng/mL NT-Pro-B Natriuret Pep (<125) pg/mL Total Protein (6.3-8.2) g/dL Albumin (3.5-5.0) g/dL Globulin (1.7-4.1) g/dL Albumin/Globulin Ratio (1.0-2.8) Lipase (23-300) U/L Urine RBC None seen (0-5/HPF) Urine WBC None seen (0-5/HPF) Ur Squamous Epith Cells None seen (0-5/HPF) Urine Bacteria None seen (None) Ur Culture Indicated? Cult not indicated SARS-CoV-2 (PCR) (Negative) Point of Care Testing Glucose POC 195 Urine Dip Bedside Urine Glucose 1000 mg/dl Bedside Urine Bilirubin - Negative Bedside Urine Ketone - Negative Urine Specific [place] 1.015 Bedside Urine Occult Blood +/- Bedside Urine pH 6.0 Bedside Urine Protein + 30 Bedside Urine Urobilinogen - Negative Bedside Urine Nitrite - Negative Bedside Urine Leukocytes - Negative Esterase Imaging Data Chest x-ray: Radiologist Impression: [address] [address] XRay Report Signed Patient: Digna Fisher MR#: [id number] : 1955 Acct:[id number] Age/Sex: 67 / M Date of Service: 01/30/23 Loc: ED Accession Number: [id number] Procedure: XR chest 1V Ordering Provider: Nilsa Gaffney D.O. PROCEDURE: XR CHEST 1V INDICATIONS: chest pain TECHNIQUE: One view of the chest was acquired. COMPARISON: [facility], CR, XR CHEST 1 VIEW, 06/04/2021, 10:54. [facility], , XR CHEST 1V, 07/27/2022, 6:41. FINDINGS: Surgical changes and devices: None. Lungs and pleura: An incomplete inspiratory result is noted, causing a crowded appearance to the lung markings. No focal infiltrates are seen. No pneumothorax or significant pleural effusions are seen. Mediastinum: The cardiac contours are within normal limits. The aorta demonstrates calcification and tortuosity. Bones and chest wall: Likely bone island seen involving the right anterior 6th rib, as before. Age-appropriate bony degenerative changes are seen. Overlying soft tissues appear unremarkable. IMPRESSION: Limited portable chest examination, without a significant cardiopulmonary abnormality identified. Dictated by: Jose Cruz Regalado M.D. on 01/30/2023 at 17:40 Approved by: Jose Cruz Regalado M.D. on 01/30/2023 at 17:41 CT scan - head: Radiologist Impression: [place] [address] CT Scan Report Signed Patient: Digna Fisher MR#: [id number] : 1955 Acct:[id number] Age/Sex: 67 / M Date of Service: 01/30/23 Loc: ED Accession Number: [id number] Procedure: CT head/brain wo con Ordering Provider: Aminta Pena D.O. PROCEDURE: CT HEAD/BRAIN WO CON INDICATIONS: GLF TECHNIQUE: Noncontrast 4.5 mm thick angled axial sections acquired from the foramen magnum to the vertex, with coronal and sagittal reformats. For radiation dose reduction, the following was used: automated exposure control, adjustment of mA and/or kV according to patient size. COMPARISON: [facility], CT, CT HEAD/BRAIN WO CON, 07/27/2022, 7:39. FINDINGS: Image quality: Excellent. CSF spaces: Basal cisterns are patent. No extra-axial fluid collections. The ventricles are symmetric in size and shape. Brain: No intracranial bleeds or masses. There is cerebral volume loss for age, with resultant ventricular and sulcal prominence. There are periventricular and deep white matter chronic small vessel ischemic changes. There is intracranial internal carotid artery atherosclerosis. Skull and face: Calvarium and visualized facial bones appear intact, without suspicious lesions. Sinuses: Visualized sinuses and mastoids are clear. IMPRESSION: No CT evidence of acute intracranial abnormalities. No significant changes from previous study. Dictated by: Kye Ramos M.D. on 01/30/2023 at 19:02 Approved by: Kye Ramos M.D. on 01/30/2023 at 19:03 CT - cervical spine: Radiologist Impression: [address] [address] [address] Scan Report Signed Patient: Digna Fisher MR#: [id number] : 1955 Acct:[id number] Age/Sex: 67 / M Date of Service: 01/30/23 Loc: ED Accession Number: [id number] Procedure: CT cervical spine wo con Ordering Provider: Aminta Pena D.O. PROCEDURE: CT CERVICAL SPINE WO CON INDICATIONS: GLF TECHNIQUE: Noncontrast 3 mm thick sections acquired from the skull base to the T4 level. Sagittal and coronal reformats were then constructed. For radiation dose reduction, the following was used: automated exposure control, adjustment of mA and/or kV according to patient size. COMPARISON: None. FINDINGS: Image quality: Excellent. Bones: No fractures or dislocations. There is straightening of normal cervical lordosis. Degenerative endplate changes, loss of disc height and bilateral facet hypertrophic changes are noted throughout cervical spine causing [id number] central canal stenosis most notably at C3-4 and C5-6 levels. Visualized superior ribs are intact. Soft tissues: Prevertebral soft tissues are normal in thickness. No paravertebral hematomas. No apical pneumothoraces. IMPRESSION: 1. No acute cervical spine fracture or dislocation. 2. Degenerative disc disease throughout cervical spine as above. Dictated by: Kye Ramos M.D. on 01/30/2023 at 19:06 Approved by: Kye Ramos M.D. on 01/30/2023 at 19:08 ECG Data Attestation: I personally reviewed and interpreted this ECG as follows: Interpretation: Sinus rhythm premature atrial complexes rate 81 MS 188 QRS of 126 QTC 476. Left axis deviation right bundle-branch block patient has EKG from 07/27/2022 which appears similar. EKG2. Sinus rhythm first-degree block, rate 80 9p are 210 QRS of 152 QTC of 474 right bundle-branch block. No acute ST elevation or depression noted. MDM Narrative Medical decision making narrative: 67-year-old male witnessed event sounds like likely syncope. Patient has had 1 prior episode in November of 2022 had a myocardial scan which was normal with no convincing ischemia or infarction preserved left ventricular function baseline right bundle-branch block no complex arrhythmias other were all low risk myocardial perfusion scan. Patient's labs show an elevated creatinine BUN slightly elevated, electrolytes are otherwise appropriate, troponin was indeterminate, this was repeated and has no change. No acute changes on EKG. No significant anemia patient's hemoglobin is 13.1 was in the 13 range in July. Platelets and white count are otherwise appropriate. COVID swab is negative. Urine is negative. Creatinine appears to be at baseline 1.54 has been similar on past visits, sodium 132 BUN slightly elevated at 31, glucose is 207, troponin is 0.067 and on repeat is 0.067, no other LFT changes. Patient did have complaint of headache he did fall backwards and strike his head and had some neck pain with loss of consciousness so head CT was obtained as well as C-spine which is negative for acute change. Chest x-ray shows no obvious acute change. Does have somewhat poor inspiratory effort. Patient's blood pressures been more elevated during his stay, he has been afebrile with no tachycardia or hypotension. Patient has been ambulating without issue, new or current episodes or symptoms. Patient is felt appropriate for discharge home he did have a Holter monitor on past but discussed maybe reoccurring. Did discuss autonomic dysfunction as a potential factor as well. Discussed return precautions patient family feel comfortable with this plan. Discharge Plan Departure Patient Disposition: Home Clinical Impression: Syncope Instructions: DI for Syncope in Adults (Fainting) Activity Restrictions/Additional Instructions: Please follow-up with your physician for recheck, they may have you repeat a Holter monitor or ZIO patch. You may have a component of dehydration, please drink plenty of fluids. Your creatinine is slightly elevated from past visits but appears consistent with priors. Please return for new or worsening symptoms, recurrent episodes of passing out, shaking, severe headaches, new chest pain, shortness of breath, persistent vomiting, new swelling in her extremities, black or bloody stools or other new or concerning changes. Prescriptions: No Action losartan 100 mg Tablet 100 mg PO DAILY rasagiline 1 mg Tablet 1 mg PO DAILY insulin glargine [Lantus U-100 Insulin] 100 unit/mL Solution 16 unit SUBCUT QAM Stand Alone Forms: Patient Portal/API
--- NOTE | 2023-01-30 18:44 | DI.CT.S_ITS ---
PROCEDURE: CT CERVICAL SPINE WO CON INDICATIONS: GLF TECHNIQUE: Noncontrast 3 mm thick sections acquired from the skull base to the T4 level. Sagittal and coronal reformats were then constructed. For radiation dose reduction, the following was used: automated exposure control, adjustment of mA and/or kV according to patient size. COMPARISON: None. FINDINGS: Image quality: Excellent. Bones: No fractures or dislocations. There is straightening of normal cervical lordosis. Degenerative endplate changes, loss of disc height and bilateral facet hypertrophic changes are noted throughout cervical spine causing [id number] central canal stenosis most notably at C3-4 and C5-6 levels. Visualized superior ribs are intact. Soft tissues: Prevertebral soft tissues are normal in thickness. No paravertebral hematomas. No apical pneumothoraces. IMPRESSION: 1. No acute cervical spine fracture or dislocation. 2. Degenerative disc disease throughout cervical spine as above. Dictated by: Kye Ramos M.D. on 01/30/2023 at 19:06 Approved by: Kye Ramos M.D. on 01/30/2023 at 19:08
--- NOTE | 2023-01-30 18:44 | DI.CT.S_ITS ---
PROCEDURE: CT HEAD/BRAIN WO CON INDICATIONS: GLF TECHNIQUE: Noncontrast 4.5 mm thick angled axial sections acquired from the foramen magnum to the vertex, with coronal and sagittal reformats. For radiation dose reduction, the following was used: automated exposure control, adjustment of mA and/or kV according to patient size. COMPARISON: [facility], CT, CT HEAD/BRAIN WO CON, 07/27/2022, 7:39. FINDINGS: Image quality: Excellent. CSF spaces: Basal cisterns are patent. No extra-axial fluid collections. The ventricles are symmetric in size and shape. Brain: No intracranial bleeds or masses. There is cerebral volume loss for age, with resultant ventricular and sulcal prominence. There are periventricular and deep white matter chronic small vessel ischemic changes. There is intracranial internal carotid artery atherosclerosis. Skull and face: Calvarium and visualized facial bones appear intact, without suspicious lesions. Sinuses: Visualized sinuses and mastoids are clear. IMPRESSION: No CT evidence of acute intracranial abnormalities. No significant changes from previous study. Dictated by: Kye Ramos M.D. on 01/30/2023 at 19:02 Approved by: Kye Ramos M.D. on 01/30/2023 at 19:03
[2023-01-30 18:45] LABS: Add Manual Diff / Slide Review NO; Basophils Absolute Auto 0 /uL (0-100); Basophils Percent Auto 0.5 % (0-2); Eosinophils Absolute Auto 200 /uL (0-450); Eosinophils Percent Auto 3.8 % (2-4); Hematocrit 38.7 % (41-53); Hemoglobin 13.1 g/dL (13.5-17.5); Lymphocytes Absolute Auto 1500 /uL (1100-4500); Lymphocytes Percent Auto 22.6 % (25-40); Mean Corpuscular HGB Conc 33.8 % (30-36); Mean Corpuscular Hemoglobin 30.9 PG (26-34); Mean Corpuscular Volume 91.3 fL (80-100); Monocytes Absolute Auto 600 /uL (0-900); Monocytes Percent Auto 9.1 % (3-14); Neutrophils Absolute Auto 4100 /uL (1500-7000); Platelet Count 291 X10^3/uL (150-400); Red Blood Cell Count 4.24 X10^6/uL (4.5-5.9); White Blood Cell Count 6.5 X10^3/uL (4.5-11.0)
[2023-01-30 18:46] LABS: Prothrombin Time 11.5 SECONDS (10.1-12.7)
[2023-01-30 18:48] LABS: PTT Partial Thromboplastin Tim 28 SECONDS (26-36)
[2023-01-30 18:51] LABS: Alanine Aminotransferase 10 IU/L (<50); Albumin 3.7 g/dL (3.5-5.0); Albumin Globulin Ratio 0.9 (1.0-2.8); Alkaline Phosphatase 94 U/L (38-126); Aspartate Aminotransferase 27 IU/L (17-59); BUN Creatinine Ratio 20.1 (6-22); Bilirubin Total 0.4 mg/dL (0.2-1.3); Blood Urea Nitrogen 31 mg/dL (9-20); Calcium 8.2 mg/dL (8.4-10.2); Carbon Dioxide 24 mmol/L (22-32); Chloride 99 mmol/L (98-107); Creatine Kinase 214 U/L (55-170); Estimated Glomerular Filt Rate 49 mL/min (>60); Globulin 4.1 g/dL (1.7-4.1); Glucose 207 mg/dL (80-110); HEMOLYSIS 30 (0-50); Lipase 251 U/L (23-300); Potassium 4.2 mmol/L (3.4-5.1); Sodium 132 mmol/L (137-145); Total Protein 7.8 g/dL (6.3-8.2)
[2023-01-30 19:00] LABS: NT-proBNP (BNP-Adult 18+) 92 pg/mL (<125)
[2023-01-30 19:03] LABS: Troponin I 0.067 ng/mL (0.01-0.034)
[2023-01-30 19:21] LABS: COVID19 -Nasal RAPID Negative (Negative)
[2023-01-30] MEDS: SODIUM CHLORIDE 0.9% 1,000 ML 1000 ML IV (19:26)
[2023-01-30 21:12] LABS: Troponin I 0.067 ng/mL (0.01-0.034)
[2023-01-30 21:53] LABS: Bacteria Urine None Seen; Culture Indicated Urine Cult Not Indicated; RBC Urine None Seen (0-5/HPF); Squamous Epithelial Cell Urine None Seen (0-5/HPF); WBC Urine None Seen (0-5/HPF)
[2023-01-30] MEDS: hydrOXYzine pamoate 25 MG CAPSULE PO (22:15)
== END 2023-01-30 22:24 | disposition home or self-care (01) ==
PROVIDERS: Emergency Medicine; Emergency Provider Emergency Medicine
DX: R55 Syncope and collapse (principal); R07.9 Chest pain, unspecified; W18.30XA Fall on same level, unspecified, initial encounter; Z20.822 Contact with and (suspected) exposure to COVID-19
CPT/HCPCS: 36415; 70450; 71045; 72125; 80053; 81003; 81015; 82550; 83690; 83735; 83880; 84484; 85025; 85610; 85730; 87635; 93005; 93010; 99284; C9803

== ENCOUNTER 2023-04-10 16:24 | Emergency (ER) | payer MEDICARE, OTHER, SELFPAY ==
[2022-07-27 15:11] VITALS: BMI 27.9
[2023-04-10 16:51] VITALS: BP 153/72; PULSE 79; RESP 18; TEMP 36.2; O2SAT 99; BMI 33.0
--- NOTE | 2023-04-10 17:01 | DI.RAD.S_ITS ---
PROCEDURE: XR SHOULDER RT MIN 2V INDICATIONS: fall TECHNIQUE: 3 views of the shoulder were acquired. COMPARISON: None. FINDINGS: Bones: No acute fractures or dislocations. No suspicious bony lesions. Visualized ribs appear intact. At least moderate glenohumeral osteoarthrosis. Mild acromioclavicular osteoarthrosis. Soft tissues: No suspicious soft tissue calcifications. IMPRESSION: 1. No acute osseous abnormality. If clinical suspicion and/or symptoms persist, additional imaging with repeat plain films, or advanced imaging (e.g. CT, MRI) may be helpful for further assessment. 2. Moderate glenohumeral and mild acromioclavicular osteoarthrosis. Approved by: Suhas Cortez M.D. on 04/10/2023 at 17:55
--- NOTE | 2023-04-10 17:01 | DI.RAD.S_ITS ---
PROCEDURE: XR SHOULDER LT MIN 2V INDICATIONS: fall TECHNIQUE: 3 views of the shoulder were acquired. COMPARISON: None. FINDINGS: Bones: No acute fractures or dislocations. No suspicious bony lesions. Visualized ribs appear intact. Moderate glenohumeral and mild acromioclavicular osteoarthrosis. Soft tissues: Small calcification posterior to the humeral head is suspicious for calcific tendinopathy. IMPRESSION: 1. No acute osseous abnormality. If clinical suspicion and/or symptoms persist, additional imaging with repeat plain films, or advanced imaging (e.g. CT, MRI) may be helpful for further assessment. 2. Moderate glenohumeral and mild acromioclavicular osteoarthrosis. 3. Suspected calcific tendinopathy. Approved by: Suhas Cortez M.D. on 04/10/2023 at 17:54
--- NOTE | 2023-04-10 17:31 | DI.CT.S_ITS ---
PROCEDURE: CT CERVICAL SPINE WO CON INDICATIONS: fall, weakness TECHNIQUE: Noncontrast 3 mm thick sections acquired from the skull base to the T4 level. Sagittal and coronal reformats were then constructed. For radiation dose reduction, the following was used: automated exposure control, adjustment of mA and/or kV according to patient size. COMPARISON: [facility], CT, CT HEAD/BRAIN WO CON, 04/10/2023, 17:43. [facility], CT, CT CERVICAL SPINE WO CON, 01/30/2023, 18:48. FINDINGS: Image quality: Excellent. Bones: No fractures or dislocations. Visualized superior ribs are intact. Moderate to severe disc space narrowing can be seen at the C5-C6 level, with associated endplate irregularity and sclerosis. Post erected endplate osteophytes can be seen at this level. Milder degenerative changes are seen elsewhere. Soft tissues: Prevertebral soft tissues are normal in thickness. No paravertebral hematomas. No apical pneumothoraces. IMPRESSION: No displaced fracture or traumatic subluxation. Cervical spine degenerative changes are seen, which are overall worst at the C5-C6 level. Dictated by: Jose Cruz Regalado M.D. on 04/10/2023 at 17:10 Approved by: Jose Cruz Regalado M.D. on 04/10/2023 at 17:12
--- NOTE | 2023-04-10 17:31 | DI.CT.S_ITS ---
PROCEDURE: CT HEAD/BRAIN WO CON INDICATIONS: fall, weakness TECHNIQUE: Noncontrast 4.5 mm thick angled axial sections acquired from the foramen magnum to the vertex, with coronal and sagittal reformats. For radiation dose reduction, the following was used: automated exposure control, adjustment of mA and/or kV according to patient size. COMPARISON: [facility], CT, CT CERVICAL SPINE WO CON, 04/10/2023, 17:43. [facility], CT, CT HEAD/BRAIN WO CON, 07/27/2022, 7:39. [facility], CT, CT HEAD/BRAIN WO CON, 01/30/2023, 18:48. FINDINGS: Image quality: Mild streak artifact can be seen through the skull base. CSF spaces: Basal cisterns are patent. No extra-axial fluid collections. The ventricles are symmetric in size and shape. Brain: No intracranial bleeds or masses. There is cerebral volume loss for age, with resultant ventricular and sulcal prominence. There are periventricular and deep white matter chronic small vessel ischemic changes. There is intracranial internal carotid artery atherosclerosis. Skull and face: Calvarium and visualized facial bones appear intact, without suspicious lesions. Sinuses: Visualized sinuses and mastoids are clear. IMPRESSION: No acute intracranial pathology. No acute intracranial hemorrhage is seen. Dictated by: Jose Cruz Regalado M.D. on 04/10/2023 at 17:09 Approved by: Jose Cruz Regalado M.D. on 04/10/2023 at 17:10
--- NOTE | 2023-04-10 18:28 | ED_ITS ---
HPI - General Adult General Chief complaint: Trauma Stated complaint: fall, disoriented Time Seen by Provider: 04/10/23 17:52 Source: patient and family Mode of arrival: Family Vehicle History of Present Illness HPI narrative: Patient is a 67 year old male. Has a history of diabetes. Also has a history of Parkinson's disease. Was walking with his family on a sidewalk today. He states that his granddaughter ran in front of him and he tripped and fell. He did hit his head on the ground. He also landed on his right shoulder. He then rolled over to his left shoulder. No loss of consciousness. He has not on blood thinners. Reports bilateral shoulder pain. No neck pain. His family thought that he was somewhat confused afterwards. He is abrasions to the right side of his face. No hip or other lower extremity discomfort. His family thinks that he has improved from onset. Related Data Home Medications Medication Instructions Recorded Confirmed insulin glargine 100 unit/mL 16 unit SUBCUT QAM 07/27/22 07/27/22 subcutaneous solution (Lantus U-100 Insulin) losartan 100 mg tablet 100 mg PO DAILY 07/27/22 07/27/22 rasagiline 1 mg tablet 1 mg PO DAILY 07/27/22 07/27/22 Allergies Allergy/AdvReac Type Severity Reaction Status Date / Time atorvastatin AdvReac ITCHING Verified 04/10/23 17:02 benazepril AdvReac Cough Verified 04/10/23 17:03 empagliflozin AdvReac Diarrhea Verified 04/10/23 17:03 Review of Systems Constitutional Constitutional: Reports system reviewed and no additional complaints, except as documented Eyes Eyes: Reports system reviewed and no additional complaints, except as documented Cardiovascular Cardiovascular: Reports system reviewed and no additional complaints, except as documented Respiratory Respiratory: Reports system reviewed and no additional complaints, except as documented Integumentary/Breasts Skin/Breast: Reports system reviewed and no additional complaints, except as documented Neurologic Neurologic: Reports system reviewed and no additional complaints, except as documented Hematologic/Lymphatic On Anticoagulants: No Patient History Medical History Parkinsons disease Diabetes Social History household members: spouse and family Smoking Status: Never smoker alcohol intake: former Smoking Status: Never smoker alcohol intake frequency: 0-2 drinks per day Substance Use Type: does not use Exam Initial Vital Signs Initial Vital Signs: Vital Signs Temperature 97.1 F L 04/10/23 16:51 Pulse Rate 79 04/10/23 16:51 Respiratory Rate 18 04/10/23 16:51 Blood Pressure 153/72 H 04/10/23 16:51 Pulse Oximetry 99 04/10/23 16:51 Oxygen Delivery Method Room Air 04/10/23 16:51 Const General: cooperative and healthy appearing [facility] Face and sinus: other (Abrasions right side of face) Eyes Periorbital: periorbital findings abnormal (Abrasions right side eye periorbital region) Conjunctivae: conjunctivae normal EOM: EOM intact bilaterally Resp Effort & Inspection: normal respiratory effort Auscultation: clear to auscultation bilaterally Cardio Rate: regular rate GI Inspection: normal to inspection and non-distended Skin Other: Abrasions to right side of face Neuro General: patient alert, patient awake, patient oriented x3 and moves all extremities Extrem General: normal to inspection and capillary refill normal Scores GCS [place] coma scale eye opening: Spontaneous Mclean coma scale verbal response: Orientated Mclean coma scale motor response: Obey commands Ferm[place] coma scale total score: 15 Course Orders Ordered: ED Orders 04/10/23 17:01 XR shoulder LT min 2V Stat XR shoulder RT min 2V Stat 04/10/23 17:31 CT cervical spine wo con Stat CT head/brain wo con Stat Vital Signs Vital signs: Vital Signs - 8 hr 04/10/23 16:51 04/10/23 18:44 Temperature 97.1 F L Pulse Rate 79 73 Respiratory Rate 18 12 Blood Pressure 153/72 H 186/88 H Pulse Oximetry 99 99 Oxygen Delivery Method Room Air Room Air Medical Decision Making Lab Data Labs: Point of Care Testing Glucose POC 174 Point of care testing: Point of Care Testing Glucose POC 174 Imaging Data Extremity x-ray #1: Radiologist's Impression: PROCEDURE: XR SHOULDER RT MIN 2V INDICATIONS: fall TECHNIQUE: 3 views of the shoulder were acquired. COMPARISON: None. FINDINGS: Bones: No acute fractures or dislocations. No suspicious bony lesions. Visualized ribs appear intact. At least moderate glenohumeral osteoarthrosis. Mild acr omioclavicular osteoarthrosis. Soft tissues: No suspicious soft tissue calcifications. IMPRESSION: 1. No acute osseous abnormality. If clinical suspicion and/or symptoms persist, additional imaging with repeat plain films, or advanced imaging (e.g. CT, MRI) may be helpful for further assessment. 2. Moderate glenohumeral and mild acromioclavicular osteoarthrosis. Extremity x-ray #2: Radiologist's Impression: PROCEDURE: XR SHOULDER LT MIN 2V INDICATIONS: fall TECHNIQUE: 3 views of the shoulder were acquired. COMPARISON: None. FINDINGS: Bones: No acute fractures or dislocations. No suspicious bony lesions. Visualized ribs appear intact. Moderate glenohumeral and mild acromioclavicular osteoarthrosis. Soft tissues: Small calcification posterior to the humeral head is suspicious for calcific tendinopathy. IMPRESSION: 1. No acute osseous abnormality. If clinical suspicion and/or symptoms persist, additional imaging with repeat plain films, or advanced imaging (e.g. CT, MRI) may be helpful for further assessment. 2. Moderate glenohumeral and mild acromioclavicular osteoarthrosis. 3. Suspected calcific tendinopathy. CT scan - head: Radiologist's Impression: PROCEDURE: CT HEAD/BRAIN WO CON INDICATIONS: fall, weakness TECHNIQUE: Noncontrast 4.5 mm thick angled axial sections acquired from the foramen magnum to the vertex, with coronal and sagittal reformats. For radiation dose reduction, the following was used: automated exposure control, adjustment of mA and/or kV according to patient size. COMPARISON: [facility], CT, CT CERVICAL SPINE WO CON, 04/10/2023, 17:43. [facility], CT, CT HEAD/BRAIN WO CON, 07/27/2022, 7:39. [facility], CT, CT HEAD/BRAIN WO CON, 01/30/2023, 18:48. FINDINGS: Image quality: Mild streak artifact can be seen through the skull base. CSF spaces: Basal cisterns are patent. No extra-axial fluid collections. The ventricles are symmetric in size and shape. Brain: No intracranial bleeds or masses. There is cerebral volume loss for age, with resultant ventricular and sulcal prominence. There are periventricular and deep white matter chronic small vessel ischemic changes. There is intracranial internal carotid artery atherosclerosis. Skull and face: Calvarium and visualized facial bones appear intact, without suspicious lesions. Sinuses: Visualized sinuses and mastoids are clear. IMPRESSION: No acute intracranial pathology. No acute intracranial hemorrhage is seen. CT - cervical spine: Radiologist's Impression: PROCEDURE: CT CERVICAL SPINE WO CON INDICATIONS: fall, weakness TECHNIQUE: Noncontrast 3 mm thick sections acquired from the skull base to the T4 level. Sagittal and coronal reformats were then constructed. For radiation dose reduction, the following was used: automated exposure control, adjustment of mA and/or kV according to patient size. COMPARISON: [facility], CT, CT HEAD/BRAIN WO CON, 04/10/2023, 17:43. [facility], CT, CT CERVICAL SPINE WO CON, 01/30/2023, 18:48. FINDINGS: Image quality: Excellent. Bones: No fractures or dislocations. Visualized superior ribs are intact. Moderate to severe disc space narrowing can be seen at the C5-C6 level, with associated endplate irregularity and sclerosis. Post erected endplate osteophytes can be seen at this level. Milder degenerative changes are seen elsewhere. Soft tissues: Prevertebral soft tissues are normal in thickness. No paravertebral hematomas. No apical pneumothoraces. IMPRESSION: No displaced fracture or traumatic subluxation. Cervical spine degenerative changes are seen, which are overall worst at the C5- C6 level. MDM Narrative Medical decision making narrative: Patient is at his baseline neurologic status. He is alert and oriented x3. He is abrasions on the right side of his face that need no specific intervention here in the ER. No neck pain. No extremity injuries. We discussed head injuries with the patient and family at bedside. No further workup required here in the emergency department. Discussed the possibility of a concussion. Discussed the importance of avoiding falls. They were given return precautions. Expressed understanding and agreement with plan. Discharge Plan Departure Patient Disposition: Home Clinical Impression: Abrasion of face, Acute shoulder pain Instructions: How to Prevent Falls Activity Restrictions/Additional Instructions: You have no restrictions on your activities however it is important that you are careful to avoid falling again. Continue to take all of your medications as directed. Return to the emergency department for new symptoms. Prescriptions: No Action losartan 100 mg Tablet 100 mg PO DAILY rasagiline 1 mg Tablet 1 mg PO DAILY insulin glargine [Lantus U-100 Insulin] 100 unit/mL Solution 16 unit SUBCUT QAM Referrals: Miscellaneous,Doctor, MD [Primary Care Provider] - Stand Alone Forms: Patient Portal/API
[2023-04-10 18:44] VITALS: BP 186/88; PULSE 73; RESP 12; O2SAT 99
== END 2023-04-10 18:47 | disposition home or self-care (01) ==
PROVIDERS: Emergency Provider Emergency Medicine
DX: S00.81XA Abrasion of other part of head, initial encounter (principal); M25.512 Pain in left shoulder; G20.A1 Parkinson's disease without dyskinesia, without mention of fluctuations; W01.0XXA Fall on same level from slipping, tripping and stumbling without subsequent striking against object, initial encounter
CPT/HCPCS: 70450; 72125; 73030; 82962; 99283; 99284

== ENCOUNTER 2023-09-11 12:22 | Emergency (ER) | payer OTHER, SELFPAY ==
[2022-07-27 15:11] VITALS: BMI 27.9
[2023-09-11 12:30] VITALS: BP 204/90; PULSE 88; RESP 16; TEMP 36.6; O2SAT 97; BMI 26.6
[2023-09-11 12:33] VITALS: PULSE 82; O2SAT 98
[2023-09-11 12:34] VITALS: BP 204/90; PULSE 81; O2SAT 100
--- NOTE | 2023-09-11 12:48 | DI.CT.S_ITS ---
PROCEDURE: CT CERVICAL SPINE WO CON INDICATIONS: fall TECHNIQUE: Noncontrast 3 mm thick sections acquired from the skull base to the T4 level. Sagittal and coronal reformats were then constructed. For radiation dose reduction, the following was used: automated exposure control, adjustment of mA and/or kV according to patient size. COMPARISON: [facility], CT, CT CERVICAL SPINE WO CON, 04/10/2023, 17:43. FINDINGS: Image quality: Excellent. Bones: No fractures or dislocations. Redemonstration of multilevel degenerative changes of the cervical spine which are most pronounced C3-C4 and C5-C6. Visualized superior ribs are intact. Soft tissues: Prevertebral soft tissues are normal in thickness. No paravertebral hematomas. No apical pneumothoraces. Stable left thyroid nodule measuring 2.7 cm. IMPRESSION: No displaced fracture or traumatic subluxation. Stable left thyroid nodule measuring 2.7 cm, recommend nonurgent dedicated thyroid ultrasound if not previously obtained. Dictated by: Chad Chapman M.D. on 09/11/2023 at 13:29 Approved by: Chad Chapman M.D. on 09/11/2023 at 13:32
--- NOTE | 2023-09-11 12:48 | DI.CT.S_ITS ---
PROCEDURE: CT HEAD/BRAIN WO CON INDICATIONS: fall TECHNIQUE: Noncontrast 4.5 mm thick angled axial sections acquired from the foramen magnum to the vertex, with coronal and sagittal reformats. For radiation dose reduction, the following was used: automated exposure control, adjustment of mA and/or kV according to patient size. COMPARISON: [facility], CT, CT HEAD/BRAIN WO CON, 04/10/2023, 17:43. FINDINGS: Image quality: Diagnostic. CSF spaces: Basal cisterns are patent. No extra-axial fluid collections. The ventricles are symmetric in size and shape. Brain: No intracranial bleeds or masses. There is cerebral volume loss for age, with resultant ventricular and sulcal prominence. There are periventricular and deep white matter chronic small vessel ischemic changes. There is intracranial internal carotid artery atherosclerosis. Skull and face: Calvarium and visualized facial bones appear intact, without suspicious lesions. Sinuses: Visualized sinuses and mastoids are clear. IMPRESSION: No acute intracranial pathology. Dictated by: Chad Chapman M.D. on 09/11/2023 at 13:28 Approved by: Chad Chapman M.D. on 09/11/2023 at 13:29
[2023-09-11 13:03] VITALS: PULSE 84; O2SAT 99
[2023-09-11 13:04] VITALS: BP 173/81; PULSE 81; O2SAT 99
[2023-09-11 13:30] VITALS: BP 170/79; PULSE 78; O2SAT 95
--- NOTE | 2023-09-11 13:37 | ED_ITS ---
HPI - Fall General Chief Complaint: Fall Stated Complaint: Fall, hit head blurry vision headache no bld thnrs Time Seen by Provider: 09/11/23 12:48 Source: patient Mode of arrival: Family Vehicle History of Present Illness HPI Narrative: Patient is a 68-year-old male history of Parkinson's hypertension insulin- dependent diabetes presenting today after mechanical trip and fall. He does walk with a cane. And reports that he tripped over tarp in his living room hitting his head on the left. No loss of consciousness no antiplatelet or anticoagulation medication. No nausea or vomiting. No numbness tingling or weakness. No significant headache. Someone instructed him to come to the ED if he ever fell and hit his head. He is having blurry vision in his left eye. Denies any other injury no chest pain hip pain or shortness of breath Related Data Home Medications Medication Instructions Recorded Confirmed insulin glargine 100 unit/mL 16 unit SUBCUT QAM 07/27/22 07/27/22 subcutaneous solution (Lantus U-100 Insulin) losartan 100 mg tablet 100 mg PO DAILY 07/27/22 07/27/22 rasagiline 1 mg tablet 1 mg PO DAILY 07/27/22 07/27/22 Allergies Allergy/AdvReac Type Severity Reaction Status Date / Time atorvastatin AdvReac ITCHING Verified 09/11/23 12:39 benazepril AdvReac Cough Verified 09/11/23 12:39 empagliflozin AdvReac Diarrhea Verified 09/11/23 12:39 Patient History Medical History Parkinsons disease Diabetes Social History household members: spouse and family Smoking Status: Never smoker alcohol intake: former Smoking Status: Never smoker alcohol intake frequency: 0-2 drinks per day Substance Use Type: does not use Exam Initial Vital Signs Initial Vital Signs: Vital Signs Temperature 97.9 F 09/11/23 12:30 Pulse Rate 88 09/11/23 12:30 Respiratory Rate 16 09/11/23 12:30 Blood Pressure 204/90 H 09/11/23 12:30 Pulse Oximetry 97 09/11/23 12:30 Oxygen Delivery Method Room Air 09/11/23 12:30 GENERAL: Alert pleasant 68-year-old male and in no acute distress. HEENT: Head mild left-sided forehead contusion without significant hematoma or swelling,EOMI, pupils reactive, face symmetric, moist mucous membranes CARDIOVASCULAR: Regular rate and rhythm without murmurs, rubs or gallops. RESPIRATORY: Breath sounds equal bilaterally, no wheezes rales or rhonchi. ABDOMEN: Soft, nontender. Normoactive bowel sounds all 4 quadrants. No guarding or rebound. EXTREMITIES: Normal range of motion, no clubbing or edema. Neurovascularly intact NEUROLOGICAL: Alert and oriented x4.Normal gait and speech. SKIN: Warm, dry, no laceration, no petechiae, no rashes or lesions. Course Orders Ordered: ED Orders 09/11/23 12:48 CT cervical spine wo con Stat CT head/brain wo con Stat Vital Signs Vital signs: Vital Signs - 8 hr 09/11/23 12:30 Temperature 97.9 F Pulse Rate 88 Respiratory Rate 16 Blood Pressure 204/90 H Pulse Oximetry 97 Oxygen Delivery Method Room Air MDM - Fall Imaging Data CT scan - head: Radiologist's Impression: PROCEDURE: CT HEAD/BRAIN WO CON INDICATIONS: fall TECHNIQUE: Noncontrast 4.5 mm thick angled axial sections acquired from the foramen magnum to the vertex, with coronal and sagittal reformats. For radiation dose reduction, the following was used: automated exposure control, adjustment of mA and/or kV according to patient size. COMPARISON: [facility], CT, CT HEAD/BRAIN WO CON, 04/10/2023, 17:43. FINDINGS: Image quality: Diagnostic. CSF spaces: Basal cisterns are patent. No extra-axial fluid collections. The ventricles are symmetric in size and shape. Brain: No intracranial bleeds or masses. There is cerebral volume loss for age, with resultant ventricular and sulcal prominence. There are periventricular and deep white matter chronic small vessel ischemic changes. There is intracranial internal carotid artery atherosclerosis. Skull and face: Calvarium and visualized facial bones appear intact, without suspicious lesions. Sinuses: Visualized sinuses and mastoids are clear. IMPRESSION: No acute intracranial pathology. Dictated by: Chad Chapman M.D. on 09/11/2023 at 13:28 Approved by: Chad Chapman M.D. on 09/11/2023 at 13:29 CT - cervical spine: Radiologist's Impression: PROCEDURE: CT CERVICAL SPINE WO CON INDICATIONS: fall TECHNIQUE: Noncontrast 3 mm thick sections acquired from the skull base to the T4 level. Sagittal and coronal reformats were then constructed. For radiation dose reduction, the following was used: automated exposure control, adjustment of mA and/or kV according to patient size. COMPARISON: [facility], CT, CT CERVICAL SPINE WO CON, 04/10/2023, 17:43. FINDINGS: Image quality: Excellent. Bones: No fractures or dislocations. Redemonstration of multilevel degener ative changes of the cervical spine which are most pronounced C3-C4 and C5-C6. Visualized superior ribs are intact. Soft tissues: Prevertebral soft tissues are normal in thickness. No paraver tebral hematomas. No apical pneumothoraces. Stable left thyroid nodule measuring 2.7 cm. IMPRESSION: No displaced fracture or traumatic subluxation. Stable left thyroid nodule measuring 2.7 cm, recommend nonurgent dedicated thyroid ultrasound if not previously obtained. Dictated by: Chad Chapman M.D. on 09/11/2023 at 13:29 MDM Narrative Medical decision making narrative: Patient is 68-year-old male presents today with closed head injury after mechanical fall. He does have a small contusion on the left forehead. Not at high-risk for intracranial hemorrhage. Imaging of head CT and cervical spine have been reviewed and are negative. He has no other injuries. He is offered Tylenol here but would like to go home and take his own Tylenol. Discharge Plan Departure Patient Disposition: Home Clinical Impression: Closed head injury Instructions: Concussion, How to Prevent Falls Activity Restrictions/Additional Instructions: *You have been diagnosed with closed head injury *What to do: At this time go home and rest. You may notice some mild headache or some nausea and sensitivity to light. Should all improve over time *Continue to take medications as directed Tylenol Motrin as needed for pain *Follow up with your primary care provider in 2-3 days or call [phone] *Return to ER if you should have increased confusion persistent vomiting worsening headache or any new, worsening or concerning symptoms Prescriptions: No Action losartan 100 mg Tablet 100 mg PO DAILY rasagiline 1 mg Tablet 1 mg PO DAILY insulin glargine [Lantus U-100 Insulin] 100 unit/mL Solution 16 unit SUBCUT QAM Referrals: Miscellaneous,DoctorMD [Primary Care Provider] - Stand Alone Forms: Patient Portal/API
--- NOTE | 2023-09-11 13:49 | PC.NURSE ---
pt has pea size lump behind right ear. draining serosanginous fluid. states it started to swell, became red and tender to touch about 10 days ago. she say PCP and was told this was a lymph node lesion and she needed to see dermatology for removal and testing for pathology. pt awoke this morning to leaking from lump. called pcp nurse hotline and was told to come to ER for I&D and possible anitbiotics.
== END 2023-09-11 13:59 | disposition home or self-care (01) ==
PROVIDERS: Emergency Provider Emergency Medicine
DX: S00.83XA Contusion of other part of head, initial encounter (principal); W18.30XA Fall on same level, unspecified, initial encounter; H53.8 Other visual disturbances
CPT/HCPCS: 70450; 72125; 99281; 99283

== ENCOUNTER 2023-12-23 18:45 | Emergency (ER) | payer OTHER, SELFPAY ==
[2022-07-27 15:11] VITALS: BMI 27.9
[2023-12-23] VITALS (83 sets, daily range): BP systolic 103–218; BP diastolic 49–97; PULSE 13–79; RESP 11–30; TEMP 36.4; O2SAT 88–100; BMI 28.6
--- NOTE | 2023-12-23 19:04 | DI.RAD.S_ITS ---
PROCEDURE: XR CHEST 1V INDICATIONS: chest pain TECHNIQUE: One view of the chest was acquired. COMPARISON: [facility], CR, XR CHEST 1V, 01/30/2023, 17:52. FINDINGS: Surgical changes and devices: None. Lungs and pleura: Lungs are clear. No pleural effusions or pneumothorax. Mediastinum: Mediastinal contours appear normal. Heart size is enlarged. Bones and chest wall: No suspicious bony lesions. Overlying soft tissues appear unremarkable. IMPRESSION: No acute pulmonary process. Dictated by: Saloni Carr M.D. on 12/23/2023 at 20:02 Approved by: Saloni Carr M.D. on 12/23/2023 at 20:02
--- NOTE | 2023-12-23 19:09 | EKG_ITS ---
[address] [address] Test Date: 2023-12-23 Pat Name: Digna Fisher Department: [facility] Room: Gender: Male [employer]ing [employer]acer: ELLIOT SEGAL : 1955 Requested By: Order Number: [id number] Reading MD: Aris Mcgregor Measurements Intervals [place] Rate: 34 P: NV: QRS: 111 QRSD: 160 T: -26 QT: 542 QTc: 407 Interpretive Statements Critical Test Result: Low HR , Arrhythmia , AV Block Sinus rhythm with complete heart block and Idioventricular rhythm Right bundle branch block Left posterior fascicular block Bifascicular block T wave abnormality, consider inferior ischemia Electronically Signed On 12-24-2023 9:28:18 PDT by Aris Mcgregor
--- NOTE | 2023-12-23 19:10 | ED_ITS ---
HPI - Syncope General Chief Complaint: Fall Stated Complaint: Fall, HBP, delirious, hit head, no blood thinners Time Seen by Provider: 12/23/23 19:10 Source: patient, RN notes reviewed and old records reviewed Mode of arrival: Family Vehicle Limitations: no limitations History of Present Illness HPI narrative: 68-year-old male history of Parkinson's, hypertension, insulin-dependent diabetes who presents with complaint of syncope x2, altered mental status and diaphoresis. Patient's family was not present for the 1st event but about 4:00 p.m. today had unwitnessed possible syncopal episode they heard a Bang and patient was found flattened floor and for the Fridge. He describing tired, describe feeling unwell generally throughout the day and then had another episode with syncope while trying to ambulate to the bathroom. Patient's family caught him for that. Does complain of little headache in the back of his head. No chest pain or shortness of breath. Family notes he was diaphoretic earlier. He denies any nausea or vomiting. Denies any GI or urinary symptoms. Patient states he does not feel altered or confused at this time. He does take insulin, medications for Parkinson's disease and recently started on rosuvastatin. Patient had has had some food today. Has not had any prior cardiac events or cardiac interventions. Patient does not take any beta blockers, calcium channel blockers or cardiac meds. Has allergies to atorvastatin, benazepril and empagliflozin. No tobacco, occasional alcohol, no recreational drugs. He is accompanied by his family. Related Data Home Medications Medication Instructions Recorded Confirmed insulin glargine 100 unit/mL 16 unit SUBCUT QAM 07/27/22 07/27/22 subcutaneous solution (Lantus U-100 Insulin) losartan 100 mg tablet 100 mg PO DAILY 07/27/22 07/27/22 rasagiline 1 mg tablet 1 mg PO DAILY 07/27/22 07/27/22 Allergies Allergy/AdvReac Type Severity Reaction Status Date / Time atorvastatin AdvReac ITCHING Verified 12/23/23 19:00 benazepril AdvReac Cough Verified 12/23/23 19:00 empagliflozin AdvReac Diarrhea Verified 12/23/23 19:00 Review of Systems Review of Systems ROS Unobtainable: All systems reviewed & are unremarkable except as noted in HPI and below Patient History Medical History Parkinsons disease Diabetes Social History household members: spouse and family Smoking Status: Never smoker alcohol intake: former Smoking Status: Never smoker alcohol intake frequency: 0-2 drinks per day Substance Use Type: does not use Exam Narrative Exam Narrative: GEN: Elderly male, alert and oriented x 3, patient appears to be in moderate distress. Patient appears pale. No diaphoresis. HEENT: Atraumatic, pupils are equal round reactive to light, extraocular movements are intact, nares are clear, TMs are clear with no fluid, there is no conjunctival pallor. Throat is clear without any exudates, erythema, tonsillar enlargement or uvular deviation HEART: Bradycardic rate and rhythm without murmur, clicks, rubs. No carotid bruits, pulses are equal in upper and lower extremities LUNGS:Lungs clear to auscultation, no wheezes, rales, crackles, chest moves symmetrically ABD:bowel sounds normal, soft, non-tender, no guarding, rebound, rigidity, no masses noted, no hepatosplenomegaly :No CVA tenderness MSCL: Non-tender, no muscle atrophy, muscles strength 5/5 upper and lower extremities, full range of motion, normal gait NEURO:CN 2-12 intact, sensation normal. SKIN: No rash, erythema or other skin changes. Initial Vital Signs Initial Vital Signs: Vital Signs Temperature 97.6 F 12/23/23 18:54 Pulse Rate 32 L 12/23/23 18:54 Respiratory Rate 16 12/23/23 18:54 Blood Pressure 140/63 12/23/23 18:54 Pulse Oximetry 98 12/23/23 18:54 Oxygen Delivery Method Room Air 12/23/23 18:54 Course Orders Ordered: Discontinued Medications Atropine Sulfate (Atropine 1 Mg/10 Ml Syringe) 0.5 mg IV NOW ONE Stop: 12/23/23 19:21 Last Admin: 12/23/23 19:21 Dose: 0.5 mg Documented By: DELLA Atropine Sulfate (Atropine 1 Mg/10 Ml Syringe) 0.5 mg IV NOW ONE Stop: 12/23/23 20:36 Last Admin: 12/23/23 20:35 Dose: 0.5 mg Documented By: ANIKA Sodium Chloride (Normal Saline 0.9%) 1,000 mls @ 1,000 mls/hr IV BOLUS ONE Stop: 12/23/23 20:22 Last Infusion: 12/23/23 20:29 Dose: Infused Documented By: Admin: 12/23/23 19:25 Dose: 1,000 mls/hr Documented By: ANIKA Calcium Gluconate 4.65 meq/ (Sodium Chloride) 60 mls @ 180 mls/hr IV NOW ONE Stop: 12/23/23 20:34 Last Infusion: 12/23/23 20:45 Dose: Infused Documented By: Admin: 12/23/23 20:22 Dose: 180 mls/hr Documented By: ANIKA Epinephrine HCl 4 mg/ Dextrose 250 mls @ 3.75 mls/hr IV TITRATE SUDHEER; Protocol Last Admin: 12/23/23 20:44 Dose: Not Given Documented By: ANIKA Dopamine HCl/Dextrose (Dopamine 400 Mg-D5w 250 Ml) 400 mg in 250 mls @ 16.499 mls/hr IV TITRATE SUDHEER; Protocol Last Titration: 12/23/23 21:50 Dose: 5 mcg/kg/min, 16.499 mls/hr Documented By: Titration: 12/23/23 21:15 Dose: 2.5 mcg/kg/min, 8.25 mls/hr Documented By: Admin: 12/23/23 20:52 Dose: 5 mcg/kg/min, 16.499 mls/hr Documented By: ANIKA Sodium Chloride (Normal Saline 0.9%) 1,000 mls @ 150 mls/hr IV BOLUS ONE Stop: 12/24/23 03:33 Last Admin: 12/23/23 21:07 Dose: 150 mls/hr Documented By: ANIKA Acetaminophen (Ofirmev) 1,000 mg in 100 mls @ 400 mls/hr IV NOW ONE Stop: 12/23/23 21:35 Last Infusion: 12/23/23 21:52 Dose: Infused Documented By: Admin: 12/23/23 21:25 Dose: 400 mls/hr Documented By: ANIKA Lorazepam (Lorazepam 2 Mg/Ml Inj) 0.5 mg IV NOW ONE Stop: 12/23/23 21:07 Last Admin: 12/23/23 21:12 Dose: 0.5 mg Documented By: ANIKA Vital Signs Vital signs: Vital Signs - 8 hr 12/23/23 21:15 12/23/23 21:15 12/23/23 21:20 Pulse Rate 58 L Respiratory Rate 14 Blood Pressure 206/91 H 218/90 H Pulse Oximetry 95 Oxygen Delivery Method Oxygen Flow Rate 12/23/23 21:20 12/23/23 21:25 12/23/23 21:25 Pulse Rate 61 64 Respiratory Rate 18 29 H Blood Pressure 209/90 H Pulse Oximetry 95 94 Oxygen Delivery Method Oxygen Flow Rate 12/23/23 21:30 12/23/23 21:30 12/23/23 21:35 Pulse Rate 32 L 55 L Respiratory Rate 19 30 H Blood Pressure 165/72 H Pulse Oximetry 95 88 L Oxygen Delivery Method Oxygen Flow Rate 12/23/23 21:36 12/23/23 21:36 12/23/23 21:40 Pulse Rate 75 74 Respiratory Rate 23 21 Blood Pressure 145/67 H Pulse Oximetry 95 97 Oxygen Delivery Method Oxygen Flow Rate 12/23/23 21:41 12/23/23 21:41 12/23/23 21:45 Pulse Rate 31 L 32 L Respiratory Rate 24 17 Blood Pressure 184/76 H Pulse Oximetry 95 96 Oxygen Delivery Method Oxygen Flow Rate 12/23/23 21:46 12/23/23 21:46 12/23/23 21:50 Pulse Rate 33 L Respiratory Rate 17 Blood Pressure 107/49 L 169/72 H Pulse Oximetry 95 Oxygen Delivery Method Oxygen Flow Rate 12/23/23 21:50 12/23/23 21:55 12/23/23 21:55 Pulse Rate 72 78 Respiratory Rate 19 20 Blood Pressure 182/77 H Pulse Oximetry 95 95 Oxygen Delivery Method Oxygen Flow Rate 12/23/23 22:00 12/23/23 22:00 12/23/23 22:05 Pulse Rate 41 L 52 L Respiratory Rate 20 21 Blood Pressure 154/67 H Pulse Oximetry 94 93 Oxygen Delivery Method Oxygen Flow Rate 12/23/23 22:08 12/23/23 22:08 12/23/23 22:10 Pulse Rate 71 Respiratory Rate 24 Blood Pressure 171/97 H 133/56 L Pulse Oximetry 95 Oxygen Delivery Method Oxygen Flow Rate 12/23/23 22:10 12/23/23 22:15 12/23/23 22:15 Pulse Rate 60 33 L Respiratory Rate 20 18 Blood Pressure 135/61 Pulse Oximetry 95 95 Oxygen Delivery Method Oxygen Flow Rate 12/23/23 22:20 12/23/23 22:24 12/23/23 22:24 Pulse Rate 35 L Respiratory Rate 20 18 Blood Pressure 116/54 L Pulse Oximetry 93 96 Oxygen Delivery Method Oxygen Flow Rate 12/23/23 22:25 12/23/23 22:25 12/23/23 22:30 Pulse Rate 37 L Respiratory Rate 21 Blood Pressure 165/65 H 152/65 H Pulse Oximetry 97 Oxygen Delivery Method Oxygen Flow Rate 12/23/23 22:30 12/23/23 22:35 12/23/23 22:35 Pulse Rate 37 L 36 L Respiratory Rate 18 23 Blood Pressure 147/63 H Pulse Oximetry 97 95 Oxygen Delivery Method Oxygen Flow Rate 12/23/23 22:39 12/23/23 22:40 12/23/23 22:40 Pulse Rate 36 L 76 Respiratory Rate 19 24 Blood Pressure 201/87 H Pulse Oximetry 97 97 Oxygen Delivery Method Oxygen Flow Rate 12/23/23 22:45 12/23/23 22:45 12/23/23 22:50 Pulse Rate 34 L Respiratory Rate 22 Blood Pressure 151/67 H 157/67 H Pulse Oximetry 95 Oxygen Delivery Method Oxygen Flow Rate 12/23/23 22:50 12/23/23 22:55 12/23/23 22:55 Pulse Rate 36 L 76 Respiratory Rate 21 17 Blood Pressure 196/86 H Pulse Oximetry 96 97 Oxygen Delivery Method Oxygen Flow Rate 12/23/23 23:00 12/23/23 23:00 12/23/23 23:05 Pulse Rate 76 71 Respiratory Rate 23 Blood Pressure 203/88 H Pulse Oximetry 95 93 Oxygen Delivery Method Oxygen Flow Rate 12/23/23 23:10 12/23/23 23:11 12/23/23 23:11 Pulse Rate 54 L 76 Respiratory Rate 17 17 Blood Pressure 171/67 H Pulse Oximetry 97 97 Oxygen Delivery Method Oxygen Flow Rate 12/23/23 23:15 12/23/23 23:16 12/23/23 23:16 Pulse Rate 37 L 45 L Respiratory Rate 22 20 Blood Pressure 148/61 H Pulse Oximetry 97 96 Oxygen Delivery Method Oxygen Flow Rate 12/23/23 23:20 12/23/23 23:20 12/23/23 23:25 Pulse Rate 75 75 Respiratory Rate 16 17 Blood Pressure 189/77 H Pulse Oximetry 98 96 Oxygen Delivery Method Oxygen Flow Rate 12/23/23 23:28 12/23/23 23:28 12/23/23 23:30 Pulse Rate 75 36 L Respiratory Rate 17 21 Blood Pressure 198/81 H Pulse Oximetry 99 96 Oxygen Delivery Method Oxygen Flow Rate 12/23/23 23:31 12/23/23 23:31 12/23/23 23:35 Pulse Rate 42 L 73 Respiratory Rate 20 25 H Blood Pressure 147/67 H Pulse Oximetry 97 94 Oxygen Delivery Method Oxygen Flow Rate 12/23/23 23:36 12/23/23 23:36 12/23/23 23:40 Pulse Rate 75 38 L Respiratory Rate 21 20 Blood Pressure 175/79 H Pulse Oximetry 94 95 Oxygen Delivery Method Oxygen Flow Rate 12/23/23 23:41 12/23/23 23:41 12/23/23 23:45 Pulse Rate 77 79 Respiratory Rate 22 22 Blood Pressure 180/74 H Pulse Oximetry 95 96 Oxygen Delivery Method Oxygen Flow Rate 12/23/23 23:46 12/23/23 23:46 12/23/23 23:50 Pulse Rate 76 74 Respiratory Rate 22 17 Blood Pressure 218/87 H Pulse Oximetry 99 89 L Oxygen Delivery Method Nasal Cannula Oxygen Flow Rate 1.5 12/23/23 23:53 12/23/23 23:54 12/23/23 23:55 Pulse Rate 76 72 Respiratory Rate 16 18 Blood Pressure 196/93 H Pulse Oximetry 98 99 Oxygen Delivery Method Nasal Cannula Oxygen Flow Rate 2 12/23/23 23:56 12/23/23 23:56 12/24/23 00:00 Pulse Rate 76 43 L Respiratory Rate 20 24 Blood Pressure 188/79 H Pulse Oximetry 100 100 Oxygen Delivery Method Oxygen Flow Rate 12/24/23 00:01 12/24/23 00:01 12/24/23 00:05 Pulse Rate 79 Respiratory Rate 24 Blood Pressure 157/85 H 186/96 H Pulse Oximetry 99 Oxygen Delivery Method Nasal Cannula Oxygen Flow Rate 2 12/24/23 00:05 12/24/23 00:10 12/24/23 00:11 Pulse Rate 76 77 Respiratory Rate 16 18 Blood Pressure 201/86 H Pulse Oximetry 94 96 Oxygen Delivery Method Oxygen Flow Rate 12/24/23 00:11 12/24/23 00:15 12/24/23 00:16 Pulse Rate 78 75 Respiratory Rate 19 21 Blood Pressure 183/81 H Pulse Oximetry 99 100 Oxygen Delivery Method Nasal Cannula Oxygen Flow Rate 2 12/24/23 00:16 12/24/23 00:25 12/24/23 00:30 Pulse Rate 77 75 76 Respiratory Rate 15 24 21 Blood Pressure Pulse Oximetry 100 93 100 Oxygen Delivery Method Nasal Cannula Oxygen Flow Rate 2 12/24/23 00:31 12/24/23 00:31 12/24/23 00:35 Pulse Rate 76 Respiratory Rate 17 Blood Pressure 128/91 H 145/104 H Pulse Oximetry 98 Oxygen Delivery Method Oxygen Flow Rate 12/24/23 00:35 12/24/23 00:40 12/24/23 00:41 Pulse Rate 76 76 78 Respiratory Rate 20 17 22 Blood Pressure Pulse Oximetry 99 100 100 Oxygen Delivery Method Room Air Oxygen Flow Rate 12/24/23 00:41 12/24/23 00:45 12/24/23 00:45 Pulse Rate 75 Respiratory Rate 20 Blood Pressure 190/156 H 227/191 H Pulse Oximetry 99 Oxygen Delivery Method Oxygen Flow Rate 12/24/23 00:48 12/24/23 00:48 12/24/23 00:51 Pulse Rate 75 Respiratory Rate 20 Blood Pressure 172/148 H 174/158 H Pulse Oximetry 100 Oxygen Delivery Method Oxygen Flow Rate 12/24/23 00:51 12/24/23 00:55 12/24/23 01:00 Pulse Rate 38 L 75 47 L Respiratory Rate Blood Pressure Pulse Oximetry 100 100 98 Oxygen Delivery Method Oxygen Flow Rate 12/24/23 01:04 12/24/23 01:04 12/24/23 01:05 Pulse Rate 73 41 L Respiratory Rate 16 Blood Pressure 190/99 H Pulse Oximetry 98 100 Oxygen Delivery Method Nasal Cannula Oxygen Flow Rate 2 MDM - Syncope Lab Data 12/23/23 19:21 12/23/23 20:15 Labs: Lab Results 12/23/23 12/23/23 12/23/23 Range/Units 19:21 20:15 22:30 WBC 10.3 (4.5-11.0) X10^3/uL RBC 4.10 L (4.5-5.9) X10^6/uL Hgb 13.3 L (13.5-17.5) g/dL Hct 39.0 L (41-53) % MCV 95.1 (80-100) fL MCH 32.5 (26-34) PG MCHC 34.1 (30-36) % RDW 13.0 (11.6-14.8) % Plt Count 298 (150-400) X10^3/uL Neut % (Auto) 69.2 (50-75) % Lymph % (Auto) 21.7 L (25-40) % Divide % (Auto) 7.0 (3-14) % Eos % (Auto) 1.5 L (2-4) % Baso % (Auto) 0.6 (0-2) % Neut # (Auto) 7100 H (8731-2682) /uL Lymph # (Auto) 2200 (8662-7839) /uL Divide # (Auto) 700 (0-900) /uL Eos # (Auto) 100 (0-450) /uL Baso # (Auto) 100 (0-100) /uL PT 11.0 (9.4-12.5) SECONDS INR 1.0 (0.9-1.3) APTT 22 L (25.1-36.5) SECONDS Sodium 129 L (137-145) mmol/L Potassium 4.3 (3.4-5.1) mmol/L Chloride 106 (98-107) mmol/L Carbon Dioxide 18 L (22-32) mmol/L BUN 43 H (9-20) mg/dL Creatinine 1.68 H (0.66-1.25) mg/dL Estimated GFR 43 L (>60) mL/min BUN/Creatinine Ratio 25.6 H (6-22) Glucose 215 H (80-110) mg/dL Calcium 7.3 L (8.4-10.2) mg/dL Magnesium 1.9 (1.6-2.3) mg/dL Total Bilirubin 0.6 (0.2-1.3) mg/dL AST 34 (17-59) IU/L ALT 9 (<50) IU/L Alkaline Phosphatase 76 (38-126) U/L Total Creatine Kinase 516 H (55-170) U/L Troponin I 0.103 H 0.115 H (0.01-0.034) ng/mL NT-Pro-B Natriuret Pep 148 H (<125) pg/mL Total Protein 6.0 L (6.3-8.2) g/dL Albumin 2.7 L (3.5-5.0) g/dL Globulin 3.3 (1.7-4.1) g/dL Albumin/Globulin Ratio 0.8 L (1.0-2.8) Lipase 168 (23-300) U/L Point of Care Testing Glucose POC 259 ECG Data Attestation: I personally reviewed and interpreted this ECG as follows: Prior ECG tracings: available for review Interpretation: Bradycardic rate of 34, patient does have a history of right bundle-branch block which appears present does not appear to have a third-degree heart block in comparison to priors from 01/30/2023. MDM Narrative Medical decision making narrative: 68-year-old male comes in bradycardic, initially not hypotensive but is somewhat symptomatic has had 2 syncopal episodes today. Initial glucose was in the 230s. Patient's old EKGs showed sinus rhythm with first-degree AV block and a right bundle-branch. Patient appears still have right bundle appears to be in possible third-degree heart block. Patient does take some medications for Parkinson's and insulin no beta blockers or calcium channel blockers. Patient did have what sounds like a syncopal episode likely secondary to his bradycardia head and CT were obtained because this. Head Ct and C-spine CT shows no acute change intracranial arch cervical spine does have [id number] atrophy and chronic microvascular ischemic changes. Chest x-ray shows no acute change Labs white count of 10 hemoglobin of 13 platelets of 298. Initial chemistries were hemolyzed. These were redrawn. Patient was given a dose of calcium gluconate of the metatarsal hypercalcemia but patient is Patient received 0.5 atropine had minimal change. She was given additional dose of 0.[address] Iqbal for Cardiology labs are still pending. She recommends dopamine 2.5 mics per kilos per minute. Labs returned patient's sodium is 129 potassium is 4.3 chloride 106 CO2 is 18 BUN of 43 creatinine 1.63 glucose is 215, calcium 7.3. Mag is 1.9 Total CK is [address] Izaguirre with cardiology for transfer to . Would be happy to see patient seems very appropriate. Dr. Méndez, character [facility] at [facility] accepts for transfer. Patient is felt appropriate for airlift because of long distance transport. Weather check for airlift, initially airlift thought that they could transport patient. They had capability to land at our facility but we are having difficulty being landing at the other facility or being able to take off from the current base to arrive at our facility. After about an hour and a half of attempting to find transport and ultimately decided patient should be transported via ALS ground rather than continue to delay transport. Patient blood pressure was able to be maintained heart rate was variable in the 40s but sometimes in the 60s to 70s. Has not had any additional syncopal or loss of consciousness. Has not required pacing at any point. Critical Care Time Critical Care Time Critical Care Time: Yes Total Critical Care Time: 55 Attestation: The high probability of a clinically significant, sudden or life threatening deterioration of the cardiac system(s) required my full and direct attention, intervention and personal management. The aggregate critical care time was [--] minutes. This time is in addition to time spent performing reported procedures but includes the following: [x] Data Review and interpretation [x] Patient assessment and monitoring of vital signs [x] Documentation [x] Medication orders and management Discharge Plan Departure Patient Disposition: [facility] Clinical Impression: Heart block AV third degree Prescriptions: No Action losartan 100 mg Tablet 100 mg PO DAILY rasagiline 1 mg Tablet 1 mg PO DAILY insulin glargine [Lantus U-100 Insulin] 100 unit/mL Solution 16 unit SUBCUT QAM Referrals: Miscellaneous,Doctor, [Primary Care Provider] -
[2023-12-23] MEDS: ATROPINE 1 MG/10 ML SYRINGE 0.5 MG IV ×2 (19:21→20:35)
--- NOTE | 2023-12-23 19:22 | DI.CT.S_ITS ---
PROCEDURE: CT HEAD/BRAIN WO CON INDICATIONS: syncope vs fall, bradycardia, rivera TECHNIQUE: Noncontrast 4.5 mm thick angled axial sections acquired from the foramen magnum to the vertex, with coronal and sagittal reformats. For radiation dose reduction, the following was used: automated exposure control, adjustment of mA and/or kV according to patient size. COMPARISON: [facility], CT, CT HEAD/BRAIN WO CON, 09/11/2023, 12:56. FINDINGS: Image quality: Diagnostic. CSF spaces: Basal cisterns are patent. No extra-axial fluid collections. The ventricles are symmetric in size and shape. Brain: No intracranial bleeds or masses. There is cerebral volume loss for age, with resultant ventricular and sulcal prominence. There are periventricular and deep white matter chronic small vessel ischemic changes. There is intracranial internal carotid artery atherosclerosis. Skull and face: Calvarium and visualized facial bones appear intact, without suspicious lesions. Sinuses: Visualized sinuses and mastoids are clear. IMPRESSION: 1. No acute intracranial process. 2. Rhna-ie-nubwhvxt atrophy and chronic microvascular ischemic changes. Dictated by: Saloni Carr M.D. on 12/23/2023 at 20:02 Approved by: Saloni Carr M.D. on 12/23/2023 at 20:02
--- NOTE | 2023-12-23 19:22 | DI.CT.S_ITS ---
PROCEDURE: CT CERVICAL SPINE WO CON INDICATIONS: syncope vs fall, bradycardia, rivera TECHNIQUE: Noncontrast 3 mm thick sections acquired from the skull base to the T4 level. Sagittal and coronal reformats were then constructed. For radiation dose reduction, the following was used: automated exposure control, adjustment of mA and/or kV according to patient size. COMPARISON: [facility], CT, CT CERVICAL SPINE WO CON, 09/11/2023, 12:56. FINDINGS: Image quality: Excellent. Bones: No fractures or dislocations. Visualized superior ribs are intact. Multilevel degenerative changes are present. Soft tissues: Prevertebral soft tissues are normal in thickness. No paravertebral hematomas. No apical pneumothoraces. Unchanged left thyroid lobe low-attenuation focus. IMPRESSION: No displaced fracture or traumatic subluxation. Dictated by: Saloni Carr M.D. on 12/23/2023 at 20:03 Approved by: Saloni Carr M.D. on 12/23/2023 at 20:04
[2023-12-23] MEDS: SODIUM CHLORIDE 0.9% 1,000 ML 1000 ML IV (19:25)
[2023-12-23 19:42] LABS: Add Manual Diff / Slide Review NO; Basophils Absolute Auto 100 /uL (0-100); Basophils Percent Auto 0.6 % (0-2); Eosinophils Absolute Auto 100 /uL (0-450); Eosinophils Percent Auto 1.5 % (2-4); Hemoglobin 13.3 g/dL (13.5-17.5); Lymphocytes Absolute Auto 2200 /uL (1100-4500); Lymphocytes Percent Auto 21.7 % (25-40); Mean Corpuscular HGB Conc 34.1 % (30-36); Mean Corpuscular Hemoglobin 32.5 PG (26-34); Mean Corpuscular Volume 95.1 fL (80-100); Monocytes Absolute Auto 700 /uL (0-900); Neutrophils Absolute Auto 7100 /uL (1500-7000); Neutrophils Percent Auto 69.2 % (50-75); PTT Partial Thromboplastin Tim 22 SECONDS (25.1-36.5); Platelet Count 298 X10^3/uL (150-400); White Blood Cell Count 10.3 X10^3/uL (4.5-11.0)
[2023-12-23] MEDS: CALCIUM GLUCONATE 4.65 MEQ in SODIUM CHLORIDE 0.9% 50 ML 180 MEQ IV (20:22)
[2023-12-23] MEDS: DOPAMINE HCL IN DEXTROSE 5 % 400 MG/250 ML PLAST..BAG 16.499 MG IV (20:52)
[2023-12-23 20:55] LABS: Alanine Aminotransferase 9 IU/L (<50); Albumin 2.7 g/dL (3.5-5.0); Albumin Globulin Ratio 0.8 (1.0-2.8); Alkaline Phosphatase 76 U/L (38-126); Aspartate Aminotransferase 34 IU/L (17-59); BUN Creatinine Ratio 25.6 (6-22); Bilirubin Total 0.6 mg/dL (0.2-1.3); Blood Urea Nitrogen 43 mg/dL (9-20); Calcium 7.3 mg/dL (8.4-10.2); Carbon Dioxide 18 mmol/L (22-32); Chloride 106 mmol/L (98-107); Creatine Kinase 516 U/L (55-170); Estimated Glomerular Filt Rate 43 mL/min (>60); Globulin 3.3 g/dL (1.7-4.1); Glucose 215 mg/dL (80-110); HEMOLYSIS 23 (0-50); Lipase 168 U/L (23-300); Potassium 4.3 mmol/L (3.4-5.1); Sodium 129 mmol/L (137-145)
[2023-12-23 21:07] LABS: NT-proBNP (BNP-Adult 18+) 148 pg/mL (<125); Troponin I 0.103 ng/mL (0.01-0.034)
[2023-12-23] MEDS: SODIUM CHLORIDE 0.9% 1,000 ML 150 ML IV (21:07)
[2023-12-23 21:12] LABS: Magnesium 1.9 mg/dL (1.6-2.3)
[2023-12-23] MEDS: LORazepam 2 MG/ML INJ 0.5 MG IV (21:12)
--- NOTE | 2023-12-23 21:18 | EKG_ITS ---
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
--- NOTE | 2023-12-23 21:18 | PC.NURSE ---
Multiple facilities w/o cardiac capability. [facility], [facility], [facility] [place] all states no capability. has started process but has no immediate bed availability. [facility] called; report given; requested assistance.
[2023-12-23] MEDS: ACETAMINOPHEN IV 1,000 MG/100 ML VIAL 400 MG IV (21:25)
[2023-12-23 23:01] LABS: Troponin I 0.115 ng/mL (0.01-0.034)
--- NOTE | 2023-12-23 23:41 | PC.NURSE ---
This RN takes over care. Pt is A&Ox4. He denies chest pain. Dopamine drip and NS is running as per MAR. Family is at bedside. HR fluctuates between 34-77 during bedside report.
[2023-12-24] VITALS (20 sets, daily range): BP systolic 128–227; BP diastolic 81–191; PULSE 38–79; RESP 15–24; O2SAT 93–100
--- NOTE | 2023-12-24 00:26 | PC.NURSE ---
Addendum entered by Gretel James CNA 12/24/23 00:43: TAWANDA -> Talked with Amelie at 2052 and she said that they might be able to take the pt and to push over any imaging as well as a facesheet. Those were faxed over at 2099. ELLIOT Buckner Called [facility] to have them help start the process of finding a bed. 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 The pt was accepted at [facility] by Dr. Méndez Set up airlift for transfer and they were unable to take off from any of their locations so pt is going by ground via [facility] with lights and sirens with an eta arrival at our facility of 0130. Dr. Pena aware Original Note: Pt has dx of 3rd degree heart block and will need transfer for higher level of care. I called and talked to the following SV-> Talked to Yocasta at 2047 and she said that they are unable to take the pt due to no beds available. [facility] -> Talked to Jez at 2048 and he said that they are unable to take the pt due to no beds available and boarding in the ED. Prov -> Talked with Jun at 2050 and he said that they are unable to take the pt due to no beds and a 3+ day wait. VM -> Talked with Amelie at 2052 and she said that they might be able to take the pt and to push over any imaging as well as a facesheet. Those
--- NOTE | 2023-12-24 11:29 | PC.NURSE ---
late entry: patient tried to get himself up to be urinate and had brief pause in HR on the monitor and palpation of pulse. He became unresponsive for a period of 2-3 seconds but quickly regained responsiveness with slow bradycardia on the monitor with a rate in the 30s and on palpation of pulse. He was mentating immediately after the event and stated that he felt dizzy but was feeling better. Provider aware. The patient was instructed that that he should not try and get up in the future. He refused a chowdhury catheter.
== END 2023-12-24 01:15 | disposition short-term general hospital (02) ==
PROVIDERS: Emergency Provider Emergency Medicine
DX: I44.2 Atrioventricular block, complete (principal); I45.2 Bifascicular block; R00.1 Bradycardia, unspecified; S09.90XA Unspecified injury of head, initial encounter; R07.9 Chest pain, unspecified; R55 Syncope and collapse; G20.A1 Parkinson's disease without dyskinesia, without mention of fluctuations; E11.9 Type 2 diabetes mellitus without complications; Z79.4 Long term (current) use of insulin
CPT/HCPCS: 36415; 70450; 71045; 72125; 80053; 82550; 82962; 83690; 83735; 83880; 84484; 85025; 85610; 85730; 93005; 96365; 96367; 96368; 96375; 96376; 99285; 99291; 99292; J0136; J0461; J0612; J2060

== ENCOUNTER 2024-07-04 00:24 | Emergency (ER) | payer OTHER, SELFPAY ==
[2022-07-27 15:11] VITALS: BMI 27.9
[2024-07-04] VITALS (27 sets, daily range): BP systolic 113–226; BP diastolic 72–107; PULSE 66–86; RESP 13–31; TEMP 36.3; O2SAT 91–100; BMI 26.6
--- NOTE | 2024-07-04 00:36 | EKG_ITS ---
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
--- NOTE | 2024-07-04 00:48 | DI.RAD.S_ITS ---
PROCEDURE: XR CHEST 1V INDICATIONS: chest pain TECHNIQUE: One view of the chest was acquired. COMPARISON: [facility], CR, XR CHEST 1V, 12/23/2023, 19:36. FINDINGS: Surgical changes and devices: Left-sided cardiac pacer device is in place. . Lungs and pleura: Lungs are clear. No pleural effusions or pneumothorax. Mediastinum: Mediastinal contours appear normal. Heart size is normal. Bones and chest wall: No suspicious bony lesions. Overlying soft tissues appear unremarkable. IMPRESSION: No acute cardiopulmonary abnormalities or focal consolidation. Dictated by: Manuel Ellison M.D. on 07/04/2024 at 1:21 Approved by: Manuel Ellison M.D. on 07/04/2024 at 1:21
[2024-07-04 01:09] LABS: Add Manual Diff / Slide Review NO; Basophils Absolute Auto 0 /uL (0-100); Basophils Percent Auto 0.3 % (0-2); Eosinophils Absolute Auto 0 /uL (0-450); Eosinophils Percent Auto 0.2 % (2-4); Hematocrit 38.2 % (41-53); Hemoglobin 12.8 g/dL (13.5-17.5); Lymphocytes Absolute Auto 1500 /uL (1100-4500); Lymphocytes Percent Auto 11.3 % (25-40); Mean Corpuscular HGB Conc 33.5 % (30-36); Mean Corpuscular Hemoglobin 31.5 PG (26-34); Mean Corpuscular Volume 93.9 fL (80-100); Monocytes Absolute Auto 500 /uL (0-900); Monocytes Percent Auto 3.9 % (3-14); Neutrophils Absolute Auto 11200 /uL (1500-7000); Neutrophils Percent Auto 84.3 % (50-75); Platelet Count 269 X10^3/uL (150-400); Red Blood Cell Count 4.07 X10^6/uL (4.5-5.9); Red Cell Distribution Width 13.2 % (11.6-14.8); White Blood Cell Count 13.3 X10^3/uL (4.5-11.0)
[2024-07-04 01:16] LABS: Prothrombin Time 11.6 SECONDS (9.4-12.5)
[2024-07-04 01:18] LABS: PTT Partial Thromboplastin Tim 24 SECONDS (25.1-36.5)
[2024-07-04 01:21] LABS: Alanine Aminotransferase 14 IU/L (<50); Albumin 3.9 g/dL (3.5-5.0); Albumin Globulin Ratio 1.1 (1.0-2.8); Alkaline Phosphatase 96 U/L (38-126); Aspartate Aminotransferase 42 IU/L (17-59); BUN Creatinine Ratio 18.7 (6-22); Bilirubin Total 0.9 mg/dL (0.2-1.3); Blood Urea Nitrogen 38 mg/dL (9-20); Calcium 8.5 mg/dL (8.4-10.2); Carbon Dioxide 14 mmol/L (22-32); Chloride 101 mmol/L (98-107); Creatine Kinase 874 U/L (55-170); Estimated Glomerular Filt Rate 35 mL/min (>60); Globulin 3.7 g/dL (1.7-4.1); Glucose 307 mg/dL (80-110); HEMOLYSIS < 15 (0-50); Lipase 441 U/L (23-300); Magnesium 2.3 mg/dL (1.6-2.3); Potassium 3.9 mmol/L (3.4-5.1); Sodium 129 mmol/L (137-145); Total Protein 7.6 g/dL (6.3-8.2)
[2024-07-04 01:32] LABS: NT-proBNP (BNP-Adult 18+) 121 pg/mL (<125)
[2024-07-04 01:34] LABS: Troponin I 0.133 ng/mL (0.01-0.034)
[2024-07-04] MEDS: ASPIRIN 81 MG CHEW TAB 324 MG PO (01:37)
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
[2024-07-04] MEDS: MORPHINE 4 MG/ML INJ IV (02:24)
[2024-07-04] MEDS: HEPARIN 5,000 UNIT/ML VIAL 5000 UNIT IV (02:25)
[2024-07-04] MEDS: HEPARIN DRIP 25,000 UNIT/500 ML IV.SOLN 19.595 UNIT IV (02:32)
--- NOTE | 2024-07-04 03:16 | EKG_ITS ---
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
[2024-07-04] MEDS: METOPROLOL TARTRATE 5 MG/5 ML INJ IV ×2 (03:21→05:51)
[2024-07-04 03:44] LABS: Troponin I 0.146 ng/mL (0.01-0.034)
[2024-07-04] MEDS: NITROGLYCERIN OINT 1 INCH/GM OINT...G. TOP (04:40)
== END 2024-07-04 08:24 | disposition short-term general hospital (02) ==
PROVIDERS: Emergency Provider Emergency Medicine
DX: I21.4 Non-ST elevation (NSTEMI) myocardial infarction (principal); I10 Essential (primary) hypertension; Z95.0 Presence of cardiac pacemaker
CPT/HCPCS: 36415; 71045; 80053; 82550; 83690; 83735; 83880; 84484; 85025; 85610; 85730; 93005; 96365; 96366; 96375; 96376; 99284; 99291; J1644; J2270

== ENCOUNTER 2024-07-21 00:36 | Emergency (ER) | payer OTHER, SELFPAY ==
[2022-07-27 15:11] VITALS: BMI 27.9
[2024-07-21] VITALS (7 sets, daily range): BP systolic 184–230; BP diastolic 81–110; PULSE 63–72; RESP 9–16; TEMP 36.6; O2SAT 97–100; BMI 28.5
--- NOTE | 2024-07-21 01:00 | PC.NURSE ---
pt's bp at home was low, they are having difficulty controlling his bp at home as it drops low and then is elevated, he was given medication to take if it was too low, so they came to the ED when it was low
--- NOTE | 2024-07-21 01:05 | EKG_ITS ---
[place] [address] [place] [address] Test Date: 2024-07-21 Pat Name: Digna Fisher Department: 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
--- NOTE | 2024-07-21 01:41 | ED.GENADULT ---
HPI - General Adult General Chief complaint: Hypertension Stated complaint: low blood pressure x1 hour Time Seen by Provider: 07/21/24 01:41 Source: patient and family Mode of arrival: Wheelchair History of Present Illness HPI narrative: 68-year-old male with a past medical history of Parkinson's, hypertension, diabetes, with a pacemaker comes into the ED from home for evaluation of hypotension. According to the patient he was initially seen here admitted and discharged for hypotension, he states he had multiple medication changes when he was discharged. He presents because his blood pressure has been elevated, however he denies any symptoms at this time no headache visual disturbances chest pain shortness breath fever chills nausea vomiting abdominal pain or any other GI/ symptoms time. Related Data Home Medications Medication Instructions Recorded Confirmed insulin glargine 100 unit/mL 20 unit SUBCUT QAM 07/27/22 07/21/24 subcutaneous solution (Lantus U-100 Insulin) losartan 100 mg tablet 50 mg PO BEDTIME 07/27/22 07/21/24 rasagiline 1 mg tablet 1 mg PO DAILY 07/27/22 07/21/24 aspirin 81 mg chewable tablet 81 mg PO BEDTIME 07/04/24 07/21/24 empagliflozin 25 mg tablet 12.5 mg PO BEDTIME 07/04/24 07/21/24 quetiapine 25 mg tablet 25 mg PO BEDTIME 07/04/24 07/21/24 rosuvastatin 5 mg tablet 2.5 mg PO BEDTIME 07/04/24 07/21/24 trazodone 50 mg tablet 50 mg PO BEDTIME 07/04/24 07/21/24 carbidopa 25 mg-levodopa 100 mg 1.5 tab PO 5XD 07/21/24 07/21/24 tablet carbidopa ER 50 mg-levodopa 200 mg 1 tab PO 5XD 07/21/24 07/21/24 tablet,extended release dulaglutide 3 mg/0.5 mL 3 mg SUBCUT QWEEK 07/21/24 07/21/24 subcutaneous pen injector ([facility]) fludrocortisone 0.1 mg tablet 0.1 mg PO DAILY 07/21/24 07/21/24 insulin aspart U-100 100 unit/mL 1 unit SUBCUT AC 07/21/24 07/21/24 (3 mL) subcutaneous pen (Novolog FlexPen U-100 Insulin aspart) insulin pen,reusable,BT,aspart 07/21/24 07/21/24 (InPen (for Novolog or Fiasp) Blue subcutaneous) rivastigmine tartrate 3 mg capsule 3 mg PO BID 07/21/24 07/21/24 sertraline 100 mg tablet 100 mg PO BEDTIME 07/21/24 07/21/24 Allergies Allergy/AdvReac Type Severity Reaction Status Date / Time atorvastatin AdvReac ITCHING Verified 12/23/23 19:00 benazepril AdvReac Cough Verified 12/23/23 19:00 empagliflozin AdvReac Diarrhea Verified 12/23/23 19:00 Review of Systems Review of Systems Narrative: General: Denies fever, chills, weight loss HEENT: Denies headache, eye drainage, eye irritation, head trauma, sore throat, voice change Cardiovascular: Positive hypertension, Denies any chest pain, palpitations, tachycardia Respiratory: Denies any shortness of breath, cough, wheeze, stridor GI/: Denies any abdominal pain, nausea, vomiting, diarrhea, bright red blood per rectum, melanotic stools, urinary frequency, urinary retention, dysuria, hematuria MSK: Denies any joint pain, muscle pains, swelling Skin: Denies any rashes, lesions, discoloration Neuro: Denies any headache, lightheadedness, dizziness, fainting, weakness Psych: Denies SI/HI Patient History Medical History Parkinsons disease Diabetes Social History household members: spouse and family alcohol intake: former alcohol intake frequency: 0-2 drinks per day Exam Narrative Exam Narrative: General: Cooperative, well-developed, not in acute distress HEENT: Normocephalic, atraumatic, PERRLA, normal sclera, eyelids normal Neck: Active full range of motion, atraumatic Chest: Normal to inspection, negative crepitus, no overlying erythema ecchymosis Respiratory: Normal respiratory effort, not in acute respiratory distress, clear to auscultation bilaterally negative cough, wheeze, tachypnea, rhonchi, rales Cardiology: Regular rate rhythm negative gallop, murmur, rubs GI/: No tenderness to palpation, soft, non rigid, normal to inspection, exam deferred MSK: Full active range of motion in all 4 extremities, atraumatic, no tenderness to palpation of any bony prominences Skin: No rashes or lesions noted Neuro: Alert awake oriented x3, moves all 4 extremities spontaneously, cranial nerves intact, able to answer all questions appropriately follows commands appropriately Psych: Cooperative, negative suicidal or homicidal ideations Initial Vital Signs Initial Vital Signs: Vital Signs Temperature 97.8 F 07/21/24 00:52 Pulse Rate 72 07/21/24 00:52 Respiratory Rate 14 07/21/24 00:52 Blood Pressure 184/81 H 07/21/24 00:52 Pulse Oximetry 100 07/21/24 00:52 Oxygen Delivery Method Room Air 07/21/24 00:52 Course Orders Ordered: ED Orders 07/21/24 01:02 EKG-12 Lead Stat Vital Signs Vital signs: Vital Signs - 8 hr 07/21/24 00:52 Temperature 97.8 F Pulse Rate 72 Respiratory Rate 14 Blood Pressure 184/81 H Pulse Oximetry 100 Oxygen Delivery Method Room Air Medical Decision Making Differential Diagnosis Differential Diagnosis: Asymptomatic hypertension ECG Data Interpretation: EKG interpreted ED physician atrially sensed ventricularly paced at 64 QTC 449 left axis deviation MDM Narrative Medical decision making narrative: 68-year-old male with a past medical history of diabetes hypertension Parkinson's presents for hypertension. He states that he was seen here and transferred for hypotension, he states that prior to being discharged from outside hospital he had a lot of his blood pressure medications changed, he states that he checked his blood pressure hour prior to arrival and was elevated and therefore was concerned and wanted to be evaluated in the emergency department. Patient denies any symptoms such as headache visual disturbances chest pain shortness breath fever chills nausea vomiting abdominal pain or any other GI/ symptoms time. Given patient with asymptomatic hypertension with recent change in blood pressure medications no indications to obtain any additional imaging or lab work. 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 He was given strict return precautions he verbalized understanding of this and agrees to being discharged home with outpatient follow up Discharge Plan Departure Patient Disposition: Home Clinical Impression: Asymptomatic hypertension Instructions: DI for High Blood Pressure Prescriptions: No Action losartan 100 mg Tablet 50 mg PO BEDTIME rasagiline 1 mg Tablet 1 mg PO DAILY insulin glargine [Lantus U-100 Insulin] 100 unit/mL Solution 20 unit SUBCUT QAM quetiapine 25 mg Tablet 25 mg PO BEDTIME trazodone 50 mg Tablet 50 mg PO BEDTIME Rx Instructions: May take an additional tablet as needed aspirin 81 mg Tablet,Chewable 81 mg PO BEDTIME rosuvastatin 5 mg Tablet 2.5 mg PO BEDTIME empagliflozin 25 mg Tablet 12.5 mg PO BEDTIME carbidopa-levodopa 50-200 mg Tablet Extended Release 1 tab PO 5XD Rx Instructions: divide evenly over waking hours sertraline 100 mg Tablet 100 mg PO BEDTIME carbidopa-levodopa 25-100 mg Tablet 1.5 tab PO 5XD rivastigmine tartrate 3 mg Capsule 3 mg PO BID Rx Instructions: Take 2 (6mg) in the AM and 1 (3mg) at bedtime fludrocortisone 0.1 mg Tablet 0.1 mg PO DAILY (DME) InPen (Novolog or Fiasp) Blue Insulin Pen SUBCUT insulin aspart U-100 [Novolog FlexPen U-100 Insulin] 100 unit/mL (3 mL) Insulin Pen 1 unit SUBCUT AC Rx Instructions: 1 unit per 10 carbs sliding scale Trulicity 3 mg/0.5 mL Pen Injector 3 mg SUBCUT QWEEK Rx Instructions: on Mondays Referrals: Miscellaneous,Doctor, MD [Primary Care Provider] - Stand Alone Forms: Patient Portal/API/Survey
== END 2024-07-21 02:18 | disposition home or self-care (01) ==
PROVIDERS: Emergency Provider Student in an Organized Health Care Education/Training Program
DX: I10 Essential (primary) hypertension (principal); G20.A1 Parkinson's disease without dyskinesia, without mention of fluctuations; E11.9 Type 2 diabetes mellitus without complications; Z95.0 Presence of cardiac pacemaker
CPT/HCPCS: 93005; 99281; 99283

== ENCOUNTER 2025-02-03 21:10 | Observation (INO) | payer OTHER, SELFPAY ==
[2022-07-27 15:11] VITALS: BMI 27.9
[2025-02-03] VITALS (10 sets, daily range): BP systolic 184–243; BP diastolic 94–112; PULSE 73–80; RESP 14–21; TEMP 36.9; O2SAT 98–100; BMI 31.9
--- NOTE | 2025-02-03 21:26 | EKG_ITS ---
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
[2025-02-03 22:46] LABS: Add Manual Diff / Slide Review NO; Hematocrit 43.6 % (41-53); Hemoglobin 14.6 g/dL (13.5-17.5); Lymphocytes Absolute Auto 1500 /uL (1100-4500); Mean Corpuscular HGB Conc 33.6 % (30-36); Mean Corpuscular Hemoglobin 31.3 PG (26-34); Mean Corpuscular Volume 93.1 fL (80-100); Platelet Count 286 X10^3/uL (150-400)
[2025-02-03 22:52] LABS: Creatine Kinase 295 U/L (55-170)
[2025-02-03 22:54] LABS: Alanine Aminotransferase 9 IU/L (<50); Albumin 4.3 g/dL (3.5-5.0); Albumin Globulin Ratio 1.0 (1.0-2.8); Alkaline Phosphatase 83 U/L (38-126); Blood Urea Nitrogen 28 mg/dL (9-20); Calcium 9.4 mg/dL (8.4-10.2); Carbon Dioxide 25 mmol/L (22-32); Chloride 100 mmol/L (98-107); Estimated Glomerular Filt Rate 38 mL/min (>60); Globulin 4.2 g/dL (1.7-4.1); Glucose 197 mg/dL (70-99); HEMOLYSIS < 15 (0-50); Lipase 331 U/L (23-300); Potassium 3.5 mmol/L (3.4-5.1); Sodium 134 mmol/L (137-145); Total Protein 8.5 g/dL (6.3-8.2)
[2025-02-03 23:08] LABS: Troponin I 0.132 ng/mL (0.01-0.034)
[2025-02-03 23:16] LABS: Culture Indicated Urine Cult Not Indicated
--- NOTE | 2025-02-03 23:49 | ED.NAVMDI ---
HPI - Nausea/Vomiting/Diarrhea General Chief complaint: Nausea/Vomiting/Diarrhea Stated complaint: N/V since thursday Time Seen by Provider: 02/03/25 22:12 Source: patient and family Mode of arrival: Wheelchair History of Present Illness HPI Narrative: 69-year-old male with history of parkinsonism and anxiety, complains of nausea and vomiting, single episode emesis nonbloody, denied any diarrhea, no black or red stools, denied chest pain shortness of breath. Had headache earlier, that seems to be improving without specific treatment. History of anxiety ongoing, with recent change in quetiapine medication dose from 12.5 mg to 25 mg 3 days ago. Son at bedside relayed history, a proximally December 2023 admitted here with syncope, found to have third-degree AV block, transfer to [facility] for pacer placement. June 2024 had anxiety and increased troponin, possible non STEMI, transferred back to [facility], no coronary interventions recalled, admission for about one-week, low blood pressure orthostatic hypotension, discharged on fludrocortisone which he is still taking. Related Data Home Medications ?Medication ?Instructions ?Recorded ?Confirmed insulin glargine 100 unit/mL 20 unit SUBCUT QAM 07/27/22 07/21/24 subcutaneous solution (Lantus U-100 Insulin) losartan 100 mg tablet 50 mg PO BEDTIME 07/27/22 07/21/24 rasagiline 1 mg tablet 1 mg PO DAILY 07/27/22 07/21/24 aspirin 81 mg chewable tablet 81 mg PO BEDTIME 07/04/24 07/21/24 empagliflozin 25 mg tablet 12.5 mg PO BEDTIME 07/04/24 07/21/24 quetiapine 25 mg tablet 25 mg PO BEDTIME 07/04/24 07/21/24 rosuvastatin 5 mg tablet 2.5 mg PO BEDTIME 07/04/24 07/21/24 trazodone 50 mg tablet 50 mg PO BEDTIME 07/04/24 07/21/24 carbidopa 25 mg-levodopa 100 mg 1.5 tab PO 5XD 07/21/24 07/21/24 tablet carbidopa ER 50 mg-levodopa 200 mg 1 tab PO 5XD 07/21/24 07/21/24 tablet,extended release dulaglutide 3 mg/0.5 mL 3 mg SUBCUT QWEEK 07/21/24 07/21/24 subcutaneous pen injector (Trulicity) fludrocortisone 0.1 mg tablet 0.1 mg PO DAILY 07/21/24 07/21/24 insulin aspart U-100 100 unit/mL 1 unit SUBCUT AC 07/21/24 07/21/24 (3 mL) subcutaneous pen (Novolog FlexPen U-100 Insulin aspart) insulin pen,reusable,BT,aspart 07/21/24 07/21/24 (InPen (for Novolog or Fiasp) Blue subcutaneous) rivastigmine tartrate 3 mg capsule 3 mg PO BID 07/21/24 07/21/24 sertraline 100 mg tablet 100 mg PO BEDTIME 07/21/24 07/21/24 Allergies Allergy/AdvReac Type Severity Reaction Status Date / Time atorvastatin AdvReac ITCHING Verified 02/03/25 21:19 benazepril AdvReac Cough Verified 02/03/25 21:19 Patient History Medical History Parkinsons disease Diabetes Social History household members: spouse and family alcohol intake: former alcohol intake frequency: 0-2 drinks per day Exam Narrative Exam Narrative: GENERAL: Well-developed patient, in mild distress. HEAD: Atraumatic. Normocephalic. EYES: Pupils equal round and reactive. Extraocular motions intact. No scleral icterus. No injection or drainage. ENT: Nose without bleeding, purulent drainage. Throat without erythema, tonsillar hypertrophy or exudate. Airway patent. NECK: Trachea midline. Non tender CARDIOVASCULAR: Regular rate and rhythm without murmurs, gallops, or rubs. RESPIRATORY: Clear to auscultation. Breath sounds equal bilaterally. No wheezes, rales, or rhonchi. GASTROINTESTINAL: Abdomen soft, non-tender, nondistended. EXTREMITIES: No edema or joint tenderness. BACK: Nontender without deformity or crepitance. No flank tenderness. NEURO: AOx3. Motor functions grossly nonfocal. SKIN: No rash or erythema of visible areas Initial Vital Signs Initial Vital Signs: Vital Signs Temperature 98.5 F 02/03/25 21:15 Pulse Rate 79 02/03/25 21:15 Respiratory Rate 18 02/03/25 21:15 Blood Pressure 204/94 H 02/03/25 21:15 Pulse Oximetry 99 02/03/25 21:15 Oxygen Delivery Method Room Air 02/03/25 21:15 Course Orders Ordered: ED Orders 02/03/25 21:22 EKG-12 Lead Stat 02/03/25 22:30 Complete Blood Count AUTO DIFF Stat Comprehensive Metabolic Panel Stat Lipase Stat Troponin & CK Cardiac Panel Stat 02/03/25 22:45 Urine Microscopic Stat 02/04/25 00:20 Troponin I Stat 02/04/25 01:54 CT head/brain wo con Stat Discontinued Medications Nitroglycerin (Nitroglycerin Oint 1 Inch/Gm Oint...G.) 1 inch TOP NOW ONE Stop: 02/03/25 23:31 Last Admin: 02/04/25 00:16 Dose: 1 inch Documented By: MILIND Vital Signs Vital signs: Vital Signs - 8 hr 02/03/25 21:15 02/03/25 21:56 02/03/25 22:00 Temperature 98.5 F Pulse Rate 79 74 73 Respiratory Rate 18 14 15 Blood Pressure 204/94 H Pulse Oximetry 99 100 99 Oxygen Delivery Method Room Air 02/03/25 22:30 02/03/25 22:34 02/03/25 22:34 Temperature Pulse Rate 80 78 Respiratory Rate 21 Blood Pressure 218/112 H Pulse Oximetry 100 Oxygen Delivery Method 02/03/25 23:00 02/03/25 23:01 02/03/25 23:01 Temperature Pulse Rate 77 76 Respiratory Rate 18 17 Blood Pressure 243/104 H Pulse Oximetry 99 98 Oxygen Delivery Method 02/03/25 23:05 02/03/25 23:05 02/03/25 23:30 Temperature Pulse Rate 79 80 Respiratory Rate 21 18 Blood Pressure 184/110 H Pulse Oximetry 99 100 Oxygen Delivery Method Room Air 02/03/25 23:31 02/03/25 23:31 02/04/25 00:00 Temperature Pulse Rate 79 87 Respiratory Rate 19 19 Blood Pressure 228/105 H Pulse Oximetry 100 100 Oxygen Delivery Method 02/04/25 00:01 02/04/25 00:01 02/04/25 00:16 Temperature Pulse Rate 95 H 86 Respiratory Rate 23 Blood Pressure 199/144 H 199/144 H Pulse Oximetry 100 Oxygen Delivery Method 02/04/25 00:30 02/04/25 00:30 02/04/25 01:00 Temperature Pulse Rate 85 Respiratory Rate 19 Blood Pressure 222/98 H 162/95 H Pulse Oximetry 100 Oxygen Delivery Method 02/04/25 01:00 02/04/25 01:30 02/04/25 01:30 Temperature Pulse Rate 82 80 Respiratory Rate 9 L 16 Blood Pressure 143/68 H Pulse Oximetry 98 93 Oxygen Delivery Method Room Air 02/04/25 02:00 02/04/25 02:00 02/04/25 02:11 Temperature Pulse Rate 84 88 Respiratory Rate 17 Blood Pressure 120/57 L Pulse Oximetry 98 97 Oxygen Delivery Method 02/04/25 02:11 02/04/25 02:30 02/04/25 02:30 Temperature Pulse Rate 85 Respiratory Rate Blood Pressure 109/57 L 128/66 Pulse Oximetry 96 Oxygen Delivery Method 02/04/25 03:00 02/04/25 03:00 02/04/25 03:30 Temperature Pulse Rate 83 82 Respiratory Rate Blood Pressure 120/69 Pulse Oximetry 98 98 Oxygen Delivery Method Room Air 02/04/25 03:30 Temperature Pulse Rate Respiratory Rate Blood Pressure 128/72 Pulse Oximetry Oxygen Delivery Method MDM - Nausea/Vomiting/Diarrhea Lab Data Attestation: I reviewed the patient's lab results. Lab results narrative: White blood cell count 9100, hemoglobin 14.6, platelets adequate. Glucose 197. BUN 28 with creatinine 1.86, GFR 38 low. Serum CO2 and potassium normal. Sodium 134 slight low. Liver functions normal. Lipase 331 slight increased. UA negative. Troponin 0.132 elevated, repeat interval value the same 0.132. 02/03/25 22:30 02/03/25 22:30 Labs: Lab Results 02/03/25 02/03/25 02/04/25 Range/Units 22:30 22:45 00:20 WBC 9.1 (4.5-11.0) X10^3/uL RBC 4.68 (4.5-5.9) X10^6/uL Hgb 14.6 (13.5-17.5) g/dL Hct 43.6 (41-53) % MCV 93.1 (80-100) fL MCH 31.3 (26-34) PG MCHC 33.6 (30-36) % RDW 13.7 (11.6-14.8) % Plt Count 286 (150-400) X10^3/uL Neut % (Auto) 76.6 H (50-75) % Lymph % (Auto) 16.7 L (25-40) % Powell % (Auto) 6.0 (3-14) % Eos % (Auto) 0.4 L (2-4) % Baso % (Auto) 0.3 (0-2) % Neut # (Auto) 7000 (1389-8207) /uL Lymph # (Auto) 1500 (8589-2537) /uL Powell # (Auto) 500 (0-900) /uL Eos # (Auto) 0 (0-450) /uL Baso # (Auto) 0 (0-100) /uL Sodium 134 L (137-145) mmol/L Potassium 3.5 (3.4-5.1) mmol/L Chloride 100 (98-107) mmol/L Carbon Dioxide 25 (22-32) mmol/L BUN 28 H (9-20) mg/dL Creatinine 1.86 H (0.66-1.25) mg/dL Estimated GFR 38 L (>60) mL/min BUN/Creatinine Ratio 15.1 (6-22) Glucose 197 H (70-99) mg/dL Calcium 9.4 (8.4-10.2) mg/dL Total Bilirubin 0.9 (0.2-1.3) mg/dL AST 32 (17-59) IU/L ALT 9 (<50) IU/L Alkaline Phosphatase 83 (38-126) U/L Total Creatine Kinase 295 H (55-170) U/L Troponin I 0.132 H* 0.132 H* (0.01-0.034) ng/mL Total Protein 8.5 H (6.3-8.2) g/dL Albumin 4.3 (3.5-5.0) g/dL Globulin 4.2 H (1.7-4.1) g/dL Albumin/Globulin Ratio 1.0 (1.0-2.8) Lipase 331 H (23-300) U/L Urine RBC 1-5/hpf (0-5/HPF) Urine WBC None seen (0-5/HPF) Ur Squamous Epith Cells 0-1 /hpf (0-5/HPF) Urine Bacteria None seen (None) Ur Culture Indicated? Cult not indicated Vol Urine Centrifuged 10ml (spun) Urine Dip Bedside Urine Glucose 1000 mg/dl Bedside Urine Bilirubin - Negative Bedside Urine Ketone - Negative Urine Specific Parshall 1.010 Bedside Urine Occult Blood +/- Bedside Urine pH 6.0 Bedside Urine Protein ++ 100 Bedside Urine Urobilinogen - Negative Bedside Urine Nitrite - Negative Bedside Urine Leukocytes - Negative Esterase Imaging Data Chest x-ray: Radiologist's Impression: [address] [address] XRay Report Signed Patient: Digna Fisher MR#: [id number] : 1955 Acct:[id number] Age/Sex: 68 / M Date of Service: 07/04/24 Loc: ED Accession Number: [id number] Procedure: XR chest 1V Ordering Provider: Aminta Pena D.O. PROCEDURE: XR CHEST 1V INDICATIONS: chest pain TECHNIQUE: One view of the chest was acquired. COMPARISON: [facility], , XR CHEST 1V, 12/23/2023, 19:36. FINDINGS: Surgical changes and devices: Left-sided cardiac pacer device is in place. . Lungs and pleura: Lungs are clear. No pleural effusions or pneumothorax. Mediastinum: Mediastinal contours appear normal. Heart size is normal. Bones and chest wall: No suspicious bony lesions. Overlying soft tissues appear unremarkable. IMPRESSION: No acute cardiopulmonary abnormalities or focal consolidation. Dictated by: Manuel Ellison M.D. on 07/04/2024 at 1:21 Approved by: Manuel Ellison M.D. on 07/04/2024 at 1:21 ECG Data Attestation: I personally reviewed and interpreted this ECG as follows: Interpretation: 2125, atrial sensed ventricular paced rhythm with rate 75. Prolonged AV conduction. CO 224, QRS for 114, QTC 451. MDM Narrative Medical decision making narrative: 69-year-old male with your parkinsonism, prior AV block status post pacemaker placement December 2023, prior elevated troponin June 2024 per family report felt to be due to orthostatic hypotension without coronary interventions, recent dose change quetiapine, today having headache with nausea and vomiting, no head trauma, nonfocal neuro exam. Headache symptoms seemed to be resolved. EKG, labs sent. EKG shows atrial sensed ventricular paced rhythm, rate 75. Chest x-ray, no acute changes. See radiology report. Lab data: White blood cell count 9100, hemoglobin 14.6, platelets adequate. Glucose 197. BUN 28 with creatinine 1.86, GFR 38 low. Serum CO2 and potassium normal. Sodium 134 slight low. Liver functions normal. Lipase 331 slight increased. UA negative. Troponin 0.132 elevated, repeat interval value the same 0.132. Lab reviews: Troponin and GFR, numerous values since 2022, low GFR and measurable troponins noted in all values tested CT head noncontrast. Impressions: ?No CT evidence of acute intracranial abnormality. Cerebral volume loss, intracranial atherosclerosis disease and mild sequelae of chronic small-vessel ischemic disease. See tele radiology report. 0400, case discussed with cardiology Dr. Christensen, who feels slight troponin elevation likely reflects renal insufficiency noting GFR 38, would not heparinize, but would recommend further troponin trending, admit here on telemetry here, obtain echocardiogram to look for wall motion abnormalities, and he will further consult. Will consult hospitalist. 041, case discussed with hospitalist Dr. Sy who accepts patient for admission Critical Care Time Critical Care Time Total Critical Care Time: 35 Attestation: The high probability of a clinically significant, sudden or life threatening deterioration of the [cardiopulmonary, cerebrovascular, neurologic, metabolic] systems required my full and direct attention, intervention and personal management. The aggregate critical care time was [35] minutes. This time is in addition to time spent performing reported procedures but includes the following: [x] Data Review and interpretation [x] Patient assessment and monitoring of vital signs [x] Documentation [x] Medication orders and management Discharge Plan Departure Admit Date/Time: 02/04/25 04:10 Admit Provider: Daryn Sy
[2025-02-04] VITALS (16 sets, daily range): BP systolic 109–222; BP diastolic 57–144; PULSE 80–95; RESP 9–23; TEMP 36.3–36.6; O2SAT 93–100; BMI 31.9
[2025-02-04] MEDS: NITROGLYCERIN OINT 1 INCH/GM OINT...G. TOP (00:16)
[2025-02-04 01:08] LABS: Troponin I 0.132 ng/mL (0.01-0.034)
--- NOTE | 2025-02-04 01:54 | DI.CT.S_ITS ---
PROCEDURE: CT HEAD/BRAIN WO CON INDICATIONS: headache, N/V TECHNIQUE: Noncontrast 4.5 mm thick angled axial sections acquired from the foramen magnum to the vertex, with coronal and sagittal reformats. For radiation dose reduction, the following was used: automated exposure control, adjustment of mA and/or kV according to patient size. COMPARISON: [facility], CT, CT HEAD/BRAIN WO CON, 12/23/2023, 19:26. FINDINGS: Image quality: Diagnostic. CSF spaces: Basal cisterns are patent. No extra-axial fluid collections. The ventricles are symmetric in size and shape. Brain: No intracranial bleeds or mass effect. There is cerebral volume loss, with resultant ventricular and sulcal prominence. There are periventricular and deep white matter chronic small vessel ischemic changes. There is intracranial internal carotid artery atherosclerosis. Skull and face: Calvarium and visualized facial bones appear intact, without suspicious lesions. Sinuses: Visualized sinuses and mastoids are clear. IMPRESSION: No acute intracranial pathology. Findings are concordant with preliminary interpretation provided by [facility]. Dictated by: Chad Chapman M.D. on 02/04/2025 at 6:04 Approved by: Chad Chapman M.D. on 02/04/2025 at 6:04
--- NOTE | 2025-02-04 02:01 | PC.NURSE ---
Pt's bp decreased. Provider ordered to remove nitro paste. Removed as per order.
--- NOTE | 2025-02-04 04:16 | DI.ECHO.S_ITS ---
[facility] : : [address] : : [place] : : [id number] : : Phone: [phone] Echocardiogram Report + + :Name: MERRY SANFORD Study Date: 02/04/2025 Height: 67.5 in: :[facility] ReadingLocation: Weight: 210 lb : : Gender: Male BSA: 2.1 m2 : :: 1955 Age: 69 yrs BP: 173/93 mmHg: :Reason For Study: Elevated Trop : :Ordering Physician: TAYLOR : :COSME Performed By: Miles Nuno : :Referring: COSME VAZQUEZ : + + Interpretation Summary 1) Mildly increased left ventricular thickness (concentric) with normal size, normal wall motion, and normal systolic function (EF 60-65%). 2) Normal right ventricular size and function. 3) No significant valvular abnormalities. 4) Compared to the Echo done 07/28/2022, no significant change. Procedure: A two-dimensional transthoracic echocardiogram with color flow and Doppler was performed. The study quality was technically adequate. Comparison is made with the echocardiogram of 07/28/2022. The patient was in normal sinus rhythm during the exam. Left Ventricle: The left ventricle is normal in size. Left ventricular wall thickness is mildly increased. Left ventricular systolic function is normal. The ejection fraction is estimated to be 60-65%. There are no focal wall motion abnormalities. Grade I diastolic dysfunction with normal left atrial pressure. Right Ventricle: The right ventricle is normal in size and function. Atria: The left atrial size is normal. Right atrial size is normal. There is no Doppler evidence for an interatrial shunt. Mitral Valve: There is mild mitral annular calcification. The mitral valve leaflets appear to open well. There is no mitral valve stenosis. There is trace mitral regurgitation. Aortic Valve: The aortic valve is trileaflet. Mild thickening of the right coronary cusp. There is no aortic valve stenosis. No aortic regurgitation is present. Tricuspid Valve: The tricuspid valve leaflets are thin and pliable. There is trace tricuspid regurgitation. Pulmonary artery pressures cannot be estimated because of the lack of a measurable TR jet velocity but the IVC suggests a CVP of around 3 mmHg. Pulmonic Valve: The pulmonic valve is not well seen, but is grossly normal. There is trace pulmonic regurgitation. Great Vessels: The aortic root is normal size. The ascending aorta is normal in size. The aortic arch could not be visualized. The pulmonary artery is normal size. The IVC is of normal diameter and collapses greater than 50% with a sniff. This suggests a low right atrial pressure of 3 mm Hg. Pericardium/ Pleura There is no pericardial effusion. MMode/2D Measurements & Calculations LVIDd: 4.3 cm LVOT diam: 2.4 cm LVIDs: 3.0 cm Ao root diam: 3.9 cm FS: 29.2 % asc Aorta Diam: 3.7 cm IVSd: 1.2 cm LVPWd: 1.2 cm LV tristan. diameter/BSA (cm/m^2): 2.1 LV sys. diameter/BSA (cm/m^2): 1.5 LA A2 area: 14.3 cm2 RA long axis: 6.0 cm LA A4 area: 16.9 cm2 RA area: 13.5 cm2 LA length (vol): 5.5 cm RA vol: 25.8 ml LA vol: 37.1 ml RA : 12.4 ml/m2 LA vol index: 17.8 ml/m2 IVC diam: 0.98 cm RVD1 (basal): 1.7 cm RVD2 (mid): 1.3 cm TAPSE: 1.9 cm Doppler Measurements & Calculations Ao V2 max: 121.6 cm/sec LVOT Max Gilberto: 86.8 cm/sec Ao V2 mean: 85.4 cm/sec LV V1 max P.0 mmHg Ao max P.9 mmHg LV V1 VTI: 15.7 cm Ao mean P.3 mmHg DILAN(I,D): 3.1 cm2 Ao V2 VTI: 22.9 cm DILAN(V,D): 3.3 cm2 sev ratio: 0.69 DILAN indexed to BSA (cm^2/m^2): 1.5 MV E max gilberto: 62.5 cm/sec PA V2 max: 77.0 cm/sec MV A max gilberto: 98.5 cm/sec PA V2 mean: 62.6 cm/sec MV E/A: 0.63 PA mean P.7 mmHg Med Peak E' Gilberto: 5.6 cm/sec PA pr(Accel): 43.0 mmHg E/E' med: 11.2 Lat Peak E' Gilberto: 7.7 cm/sec E/E' lat: 8.2 E/e' average: 9.7 MV dec time: 0.17 sec SV(LVOT): 72.0 ml Qp/Qs (V,Ao): 1.0/9.9 Qp/Qs (V,LVOT): 1.0/2.7 Reading Physician:02:09 PM
[2025-02-04 05:59] LABS: Alanine Aminotransferase 7 IU/L (<50); Albumin 3.9 g/dL (3.5-5.0); Albumin Globulin Ratio 1.0 (1.0-2.8); Alkaline Phosphatase 68 U/L (38-126); Blood Urea Nitrogen 28 mg/dL (9-20); Calcium 8.8 mg/dL (8.4-10.2); Carbon Dioxide 22 mmol/L (22-32); Chloride 103 mmol/L (98-107); Estimated Glomerular Filt Rate 35 mL/min (>60); Globulin 3.8 g/dL (1.7-4.1); Glucose 132 mg/dL (70-99); HEMOLYSIS < 15 (0-50); Potassium 3.5 mmol/L (3.4-5.1); Sodium 135 mmol/L (137-145); Total Protein 7.7 g/dL (6.3-8.2)
[2025-02-04 06:17] LABS: Troponin I 0.125 ng/mL (0.01-0.034)
--- NOTE | 2025-02-04 06:42 | PM.HP.1 ---
History of Present Illness History of Present Illness Date Patient Seen: 02/04/25 Time Patient Seen: 06:45 Chief complaint: N/V since thursday Narrative: 69-year-old male with past medical history of Parkinson disease, anxiety, hypertension, hyperlipidemia, depression and insulin-dependent diabetes presents with nausea and vomiting. Per the patient report, over the last 24 hours, the patient started to have increasing nausea and nonbloody vomiting. The patient however denies any history of diarrhea, fever, chills, chest pain or shortness of breath. Of note the patient recently had quetiapine medication dose increased from 12.5 to 25 mg 3 days ago. In addition per the patient's son, the patient had a third-degree heart block a year ago and was transferred to [facility] for pacemaker placement. In June 2024 the patient also had an elevated troponin and was thought to have an NSTEMI but no coronary intervention per her report. Recently the patient was admitted to our hospital with orthostatic hypotension and was discharged on fludrocortisone which the patient has been taking per the son's report. The emergency room, the patient was hemodynamically stable. Labs shows a sodium 134 BUN 28 creatinine 1.86 glucose 197 troponin initially 0.132 and repeat 0.132 and lipase 331. UA shows no sign of UTI chest x-ray shows no acute abnormality. CT head without contrast also was negative. Due to mild elevated opponent ER physician did consulted receptionist scheduler Dr. Christensen who said that this troponin is likely due to renal insufficiency and would recommend to continue to trend troponin and obtain echocardiogram tomorrow. In addition Dr. Connell will consult on the patient. [facility] Medical History Parkinsons disease Diabetes Social History household members: spouse and family Smoking Status: Never smoker alcohol intake: former Meds Home Medications and Allergies Home Medications ?Medication ?Instructions ?Recorded ?Confirmed ?Type insulin glargine 100 unit/mL 20 unit SUBCUT QAM 07/27/22 07/21/24 History subcutaneous solution (Lantus U-100 Insulin) losartan 100 mg tablet 50 mg PO BEDTIME 07/27/22 07/21/24 History rasagiline 1 mg tablet 1 mg PO DAILY 07/27/22 07/21/24 History aspirin 81 mg chewable tablet 81 mg PO BEDTIME 07/04/24 07/21/24 History empagliflozin 25 mg tablet 12.5 mg PO BEDTIME 07/04/24 07/21/24 History quetiapine 25 mg tablet 25 mg PO BEDTIME 07/04/24 07/21/24 History rosuvastatin 5 mg tablet 2.5 mg PO BEDTIME 07/04/24 07/21/24 History trazodone 50 mg tablet 50 mg PO BEDTIME 07/04/24 07/21/24 History carbidopa 25 mg-levodopa 100 mg 1.5 tab PO 5XD 07/21/24 07/21/24 History tablet carbidopa ER 50 mg-levodopa 200 mg 1 tab PO 5XD 07/21/24 07/21/24 History tablet,extended release dulaglutide 3 mg/0.5 mL 3 mg SUBCUT QWEEK 07/21/24 07/21/24 History subcutaneous pen injector (Trulicity) fludrocortisone 0.1 mg tablet 0.1 mg PO DAILY 07/21/24 07/21/24 History insulin aspart U-100 100 unit/mL 1 unit SUBCUT AC 07/21/24 07/21/24 History (3 mL) subcutaneous pen (Novolog FlexPen U-100 Insulin aspart) insulin pen,reusable,BT,aspart 07/21/24 07/21/24 History (InPen (for Novolog or Fiasp) Blue subcutaneous) rivastigmine tartrate 3 mg capsule 3 mg PO BID 07/21/24 07/21/24 History sertraline 100 mg tablet 100 mg PO BEDTIME 07/21/24 07/21/24 History Allergies Allergy/AdvReac Type Severity Reaction Status Date / Time atorvastatin AdvReac ITCHING Verified 02/03/25 21:19 benazepril AdvReac Cough Verified 02/03/25 21:19 Review of Systems Review of Systems ROS: Yes All systems reviewed with the patient and are negative except as otherwise documented Exam Vital Signs (past 8 hours): - 02/03/25 23:00 02/03/25 23:01 02/03/25 23:01 Temperature Pulse Rate 77 76 Respiratory Rate 18 17 Blood Pressure 243/104 H Pulse Oximetry 99 98 Oxygen Delivery Method 02/03/25 23:05 02/03/25 23:05 02/03/25 23:30 Temperature Pulse Rate 79 80 Respiratory Rate 21 18 Blood Pressure 184/110 H Pulse Oximetry 99 100 Oxygen Delivery Method Room Air 02/03/25 23:31 02/03/25 23:31 02/04/25 00:00 Temperature Pulse Rate 79 87 Respiratory Rate 19 19 Blood Pressure 228/105 H Pulse Oximetry 100 100 Oxygen Delivery Method 02/04/25 00:01 02/04/25 00:01 02/04/25 00:16 Temperature Pulse Rate 95 H 86 Respiratory Rate 23 Blood Pressure 199/144 H 199/144 H Pulse Oximetry 100 Oxygen Delivery Method 02/04/25 00:30 02/04/25 00:30 02/04/25 01:00 Temperature Pulse Rate 85 Respiratory Rate 19 Blood Pressure 222/98 H 162/95 H Pulse Oximetry 100 Oxygen Delivery Method 02/04/25 01:00 02/04/25 01:30 02/04/25 01:30 Temperature Pulse Rate 82 80 Respiratory Rate 9 L 16 Blood Pressure 143/68 H Pulse Oximetry 98 93 Oxygen Delivery Method Room Air 02/04/25 02:00 02/04/25 02:00 02/04/25 02:11 Temperature Pulse Rate 84 88 Respiratory Rate 17 Blood Pressure 120/57 L Pulse Oximetry 98 97 Oxygen Delivery Method 02/04/25 02:11 02/04/25 02:30 02/04/25 02:30 Temperature Pulse Rate 85 Respiratory Rate Blood Pressure 109/57 L 128/66 Pulse Oximetry 96 Oxygen Delivery Method 02/04/25 03:00 02/04/25 03:00 02/04/25 03:30 Temperature Pulse Rate 83 82 Respiratory Rate Blood Pressure 120/69 Pulse Oximetry 98 98 Oxygen Delivery Method Room Air 02/04/25 03:30 02/04/25 04:00 02/04/25 04:00 Temperature Pulse Rate 87 Respiratory Rate Blood Pressure 128/72 124/60 Pulse Oximetry 98 Oxygen Delivery Method Room Air 02/04/25 04:12 02/04/25 04:30 Temperature 97.8 F Pulse Rate 85 80 Respiratory Rate 20 Blood Pressure 128/82 Pulse Oximetry 98 Oxygen Delivery Method Oxygen Delivery Method Room Air Narrative Exam Narrative: Physical Exam: GENERAL: The patient is not in any acute distressed. Awake and alert. HEENT: Nonicteric sclerae, PERRLA, EOMI. Oropharynx clear. Moist mucous membranes. Conjunctivae appear well perfused. HEART: Regular rate and rhythm without murmurs. No lower extremities edema. LUNGS: Clear to auscultation bilaterally. No wheezing, crackles or rhonchi ABDOMEN: Soft, positive bowel sounds, nontender. SKIN: No rash, no excessive bruising, petechiae, or purpura. NEUROLOGIC: AxO x 3. Cranial nerves II-XII intact without motor/sensory deficit. Objective Labs 02/03/25 22:30 02/04/25 05:33 Labs: Laboratory Results - last 24 hr 02/03/25 02/03/25 02/04/25 22:30 22:45 00:20 WBC 9.1 RBC 4.68 Hgb 14.6 Hct 43.6 MCV 93.1 MCH 31.3 MCHC 33.6 RDW 13.7 Plt Count 286 Neut % (Auto) 76.6 H Lymph % (Auto) 16.7 L [place] % (Auto) 6.0 Eos % (Auto) 0.4 L Baso % (Auto) 0.3 Neut # (Auto) 7000 Lymph # (Auto) 1500 [place] # (Auto) 500 Eos # (Auto) 0 Baso # (Auto) 0 Sodium 134 L Potassium 3.5 Chloride 100 Carbon Dioxide 25 BUN 28 H Creatinine 1.86 H Estimated GFR 38 L BUN/Creatinine Ratio 15.1 Glucose 197 H Calcium 9.4 Total Bilirubin 0.9 AST 32 ALT 9 Alkaline Phosphatase 83 Total Creatine Kinase 295 H Troponin I 0.132 H* 0.132 H* Total Protein 8.5 H Albumin 4.3 Globulin 4.2 H Albumin/Globulin Ratio 1.0 Lipase 331 H Urine RBC 1-5/hpf Urine WBC None seen Ur Squamous Epith Cells 0-1 /hpf Urine Bacteria None seen Ur Culture Indicated? Cult not indicated Vol Urine Centrifuged 10ml (spun) 02/04/25 05:33 WBC RBC Hgb Hct MCV MCH MCHC RDW Plt Count Neut % (Auto) Lymph % (Auto) [place] % (Auto) Eos % (Auto) Baso % (Auto) Neut # (Auto) Lymph # (Auto) [place] # (Auto) Eos # (Auto) Baso # (Auto) Sodium 135 L Potassium 3.5 Chloride 103 Carbon Dioxide 22 BUN 28 H Creatinine 2.00 H Estimated GFR 35 L BUN/Creatinine Ratio 14.0 Glucose 132 H Calcium 8.8 Total Bilirubin 0.9 AST 29 ALT 7 Alkaline Phosphatase 68 Total Creatine Kinase Troponin I 0.125 H* Total Protein 7.7 Albumin 3.9 Globulin 3.8 Albumin/Globulin Ratio 1.0 Lipase Urine RBC Urine WBC Ur Squamous Epith Cells Urine Bacteria Ur Culture Indicated? Vol Urine Centrifuged Assessment & Plan Assessment & Plan narrative: Nausea and vomiting. The patient has observation. Could be secondary to viral gastroenteritis. Continue IV fluid with IV antiemetics. Mild elevated troponin. Initial troponin 0.132 and repeat unchanged. Patient has no chest pain. EKG shows no sign of acute ischemia. Dr. Yoo has been consulted and recommend to continue to trend troponin and obtain echocardiogram in the morning. Dr. Christensen will consult the patient in AM. CKD stage IV. Creatinine close to baseline. Monitor for now with IV fluid. Insulin-dependent diabetes. On glucose with subcu send. Hypertension. Monitor blood pressure and resume medication accordingly. Hyperlipidemia. Resume home medication. Anxiety. Resume home medication. DVT prophylaxis SCDs due to observational status. CODE STATUS full code. Disposition likely home in 1 to 2 days - As the provider of this telehealth evaluation, requested by the patient's evaluating physician, I attest that I introduced myself to the patient, provided my credentials and determined that telemedicine via a real-time, 2 way interactive audio and video platform is an appropriate and effective means of providing this service. - I reviewed the patient's chart and had a discussion with the member of the patient's treatment team. - The patient and I mutually agreed with continuation of this evaluation via telemedicine. The patient consented for the telemedicine evaluation. - This virtual encounter was taken place from [place] by Dr. Daryn Sy. The patient was evaluated at [facility]. The encounter was approximately 35 minutes. The nurse was present during the entire time of the encounter and was able to assists with exam/stethoscope. Time-Based Coding :: [TOTAL MINUTES] spent with patient and on the chart (including review of chart, obtaining history, exam, reviewing outside data, placing orders, documenting exam and treatment plan, and counseling patient) on [DATE]. Quality VTE Deep Vein Thrombosis/Pulmonary Embolism Present on Admission: No
[2025-02-04] MEDS: SODIUM CHLORIDE 0.45% 1,000 ML 75 ML IV (06:43)
[2025-02-04] MEDS: CARBIDOPA-LEVODOPA ER 50/200 TABLET 1 EACH PO ×2 (08:00→09:28)
[2025-02-04] MEDS: CARBIDOPA-LEVODOPA 25/100 TABLET 1.5 EACH PO ×2 (08:00→09:29)
[2025-02-04] MEDS: POTASSIUM CHLORIDE 20 MEQ TAB PO (08:09)
[2025-02-04] MEDS: INSULIN GLARGINE 100 UNIT/ML 3ML PEN 20 UNIT SUBCUT (08:11)
[2025-02-04] MEDS: INSULIN LISPRO 100 UNIT/ML 3ML VIAL SUBCUT ×2 (08:13→12:15)
--- NOTE | 2025-02-04 11:36 | PM.DS.IH.1 ---
History of Present Illness History of Present Illness Date Patient Seen: 02/04/25 Time Patient Seen: 09:40 Chief complaint: N/V since thursday Narrative: 69-year-old male with past medical history of Parkinson disease, anxiety, hypertension, hyperlipidemia, depression and insulin-dependent diabetes presents with nausea and vomiting. Per the patient report, over the last 24 hours, the patient started to have increasing nausea and nonbloody vomiting. The patient however denies any history of diarrhea, fever, chills, chest pain or shortness of breath. Of note the patient recently had quetiapine medication dose increased from 12.5 to 25 mg 3 days ago. In addition per the patient's son, the patient had a third-degree heart block a year ago and was transferred to [facility] for pacemaker placement. In June 2024 the patient also had an elevated troponin and was thought to have an NSTEMI but no coronary intervention per her report. Recently the patient was admitted to our hospital with orthostatic hypotension and was discharged on fludrocortisone which the patient has been taking per the son's report. The emergency room, the patient was hemodynamically stable. Labs shows a sodium 134 BUN 28 creatinine 1.86 glucose 197 troponin initially 0.132 and repeat 0.132 and lipase 331. UA shows no sign of UTI chest x-ray shows no acute abnormality. CT head without contrast also was negative. Due to mild elevated opponent ER physician did consulted assembler leather goods Dr. Christensen who said that this troponin is likely due to renal insufficiency and would recommend to continue to trend troponin and obtain echocardiogram tomorrow. In addition Dr. Connell will consult on the patient. Discharge Providers Provider Date of admission: 02/04/25 04:10 Discharge Date: 02/04/25 Primary care physician: Tami MARY Provider Consults: 02/04/25 04:17 Consult to Cardiology Stat Comment: Consulting Provider: Stanley Christensen Reason for consultation: N/V, elevated troponin Has provider been notified: Yes 02/04/25 06:55 Consult to Pharmacy Routine Comment: medication recon and evaluation Discharge provider: Francisco J Kam MD Summary Hospital Course Discharge Diagnosis: 1. Nausea and vomiting, likely viral gastroenteritis, resolved 2. Mildly elevated troponin, chronic, likely due to chronic kidney disease 3. Chronic kidney disease, stage IV 4. Diabetes mellitus, type 2 with chronic kidney disease 5. Hyperlipidemia 6. Anxiety disorder Hospital Course: The patient was admitted overnight and administered IV fluids with anti emetics. He was feeling significantly improved following morning. Follow up troponin was 0.125. His case was reviewed with Dr. Christensen of Cardiology who reviewed his echocardiogram following morning and reported no wall motion abnormality and felt that he was clinically stable from a cardiac perspective. The patient was feeling well and able to tolerate a general diet, ambulatory and walking the halls without assistance and interested in discharge home. No other issues arose. Status at Discharge Functional status at discharge: independent ambulation Overall status at discharge: patient is back to baseline Time Spent with Patient Time spent: Greater than 30 minutes Exam Vital Signs (past 8 hours): - 02/04/25 04:00 02/04/25 04:00 02/04/25 04:12 Temperature 97.8 F Pulse Rate 87 85 Respiratory Rate 20 Blood Pressure 124/60 128/82 Pulse Oximetry 98 Oxygen Delivery Method Room Air 02/04/25 04:30 02/04/25 08:00 Temperature 97.4 F L Pulse Rate 80 82 Respiratory Rate 17 Blood Pressure 172/93 H Pulse Oximetry 98 99 Oxygen Delivery Method Oxygen Delivery Method Room Air Narrative Exam Narrative: GENERAL: This is a well-nourished, well-developed patient, in no apparent distress. EYES: Pupils equal round and reactive. Extraocular motions intact. No scleral icterus. No injection or drainage. ENT: Mucous membranes pink and moist. NECK: Trachea midline. No JVD, bruits or lymphadenopathy. Supple, nontender, no meningeal signs. CARDIOVASCULAR: Regular rate and rhythm without murmurs, gallops, or rubs. RESPIRATORY: Clear to auscultation. GASTROINTESTINAL: Abdomen soft, non-tender, nondistended. EXTREMITIES: No clubbing, cyanosis, or edema. NEUROLOGIC: Alert, oriented, speech fluent, full upper and lower motor strength, no focal deficits evident. DERMATOLOGIC: No rashes or skin lesions. Objective ECG Impression: Atrial-sensed ventricular-paced rhythm with prolonged AV conduction, 75bpm Imaging CT scan - head: Radiologist's impression: FINDINGS: Image quality: Diagnostic. CSF spaces: Basal cisterns are patent. No extra-axial fluid collections. The ventricles are symmetric in size and shape. Brain: No intracranial bleeds or mass effect. There is cerebral volume loss, with resultant ventricular and sulcal prominence. There are periventricular and deep white matter chronic small vessel ischemic changes. There is intracranial internal carotid artery atherosclerosis. Skull and face: Calvarium and visualized facial bones appear intact, without suspicious lesions. Sinuses: Visualized sinuses and mastoids are clear. IMPRESSION: No acute intracranial pathology. Chest x-ray: Radiologist's impression: No acute cardiopulmonary abnormalities or focal consolidation. Labs 02/03/25 22:30 02/04/25 05:33 Labs: Laboratory Results - last 24 hr 02/03/25 02/03/25 02/04/25 22:30 22:45 00:20 WBC 9.1 RBC 4.68 Hgb 14.6 Hct 43.6 MCV 93.1 MCH 31.3 MCHC 33.6 RDW 13.7 Plt Count 286 Neut % (Auto) 76.6 H Lymph % (Auto) 16.7 L [place] % (Auto) 6.0 Eos % (Auto) 0.4 L Baso % (Auto) 0.3 Neut # (Auto) 7000 Lymph # (Auto) 1500 [place] # (Auto) 500 Eos # (Auto) 0 Baso # (Auto) 0 Sodium 134 L Potassium 3.5 Chloride 100 Carbon Dioxide 25 BUN 28 H Creatinine 1.86 H Estimated GFR 38 L BUN/Creatinine Ratio 15.1 Glucose 197 H POC Whole Bld Glucose Calcium 9.4 Total Bilirubin 0.9 AST 32 ALT 9 Alkaline Phosphatase 83 Total Creatine Kinase 295 H Troponin I 0.132 H* 0.132 H* Total Protein 8.5 H Albumin 4.3 Globulin 4.2 H Albumin/Globulin Ratio 1.0 Lipase 331 H Urine RBC 1-5/hpf Urine WBC None seen Ur Squamous Epith Cells 0-1 /hpf Urine Bacteria None seen Ur Culture Indicated? Cult not indicated Vol Urine Centrifuged 10ml (spun) 02/04/25 02/04/25 05:33 08:12 WBC RBC Hgb Hct MCV MCH MCHC RDW Plt Count Neut % (Auto) Lymph % (Auto) [place] % (Auto) Eos % (Auto) Baso % (Auto) Neut # (Auto) Lymph # (Auto) [place] # (Auto) Eos # (Auto) Baso # (Auto) Sodium 135 L Potassium 3.5 Chloride 103 Carbon Dioxide 22 BUN 28 H Creatinine 2.00 H Estimated GFR 35 L BUN/Creatinine Ratio 14.0 Glucose 132 H POC Whole Bld Glucose 191 H Calcium 8.8 Total Bilirubin 0.9 AST 29 ALT 7 Alkaline Phosphatase 68 Total Creatine Kinase Troponin I 0.125 H* Total Protein 7.7 Albumin 3.9 Globulin 3.8 Albumin/Globulin Ratio 1.0 Lipase Urine RBC Urine WBC Ur Squamous Epith Cells Urine Bacteria Ur Culture Indicated? Vol Urine Centrifuged [facility] Medical History Diabetes Parkinsons disease Social History household members: spouse and family Smoking Status: Never smoker alcohol intake: former Discharge Plan Discharge Plan Patient Disposition: Home Provider Discharge Comment: Followup with PCP 1 week Discharge orders & Medications Prescriptions: Continued losartan 100 mg Tablet 50 mg PO BEDTIME rasagiline 1 mg Tablet 1 mg PO DAILY insulin glargine [Lantus U-100 Insulin] 100 unit/mL Solution 20 unit SUBCUT QAM quetiapine 25 mg Tablet 25 mg PO BEDTIME trazodone 50 mg Tablet 50 mg PO BEDTIME Rx Instructions: May take an additional tablet as needed aspirin 81 mg Tablet,Chewable 81 mg PO BEDTIME rosuvastatin 5 mg Tablet 2.5 mg PO BEDTIME empagliflozin 25 mg Tablet 12.5 mg PO BEDTIME carbidopa-levodopa 50-200 mg Tablet Extended Release 1 tab PO 5XD Rx Instructions: divide evenly over waking hours sertraline 100 mg Tablet 100 mg PO BEDTIME carbidopa-levodopa 25-100 mg Tablet 1.5 tab PO 5XD rivastigmine tartrate 3 mg Capsule 3 mg PO BID Rx Instructions: Take 2 (6mg) in the AM and 1 (3mg) at bedtime fludrocortisone 0.1 mg Tablet 0.1 mg PO DAILY (DME) InPen (Novolog or Fiasp) Blue Insulin Pen SUBCUT insulin aspart U-100 [Novolog FlexPen U-100 Insulin] 100 unit/mL (3 mL) Insulin Pen 1 unit SUBCUT AC Rx Instructions: 1 unit per 10 carbs sliding scale Trulicity 3 mg/0.5 mL Pen Injector 3 mg SUBCUT QWEEK Rx Instructions: on Mondays Follow up/Referrals: ProviderTami [Primary Care Provider, Family Practice] Visit Report/Discharge Packet Stand Alone Forms: Patient Portal/API, Stroke Signs & Symptoms Discharge Data Primary Care Provider: Tami Luciano Attending Provider: Daryn Sy Admit Date/Time: 02/04/25 04:10 Quality VTE Deep Vein Thrombosis/Pulmonary Embolism Present on Admission: No MIPS - Admit I confirm the patient?s Advance Care Plan is present, Code status is documented, Surrogate decision maker is in patient?s record [If Yes, STOP here]: Yes MIPS - Meds 'Current medications' to include all prescriptions, [id number] products, herbals, cannabis/cannabidiol products, and vitamin/mineral/dietary (nutritional) supplements. I have utilized all available resources to obtain, update, or review the patient?s current medications. [If Yes, STOP here]: Yes MIPS - DC The patient has a history of heart transplant or Left Ventricular Assist Device (LVAD). If yes, STOP here.: No The patient has current or prior documentation of left ventricular ejection fraction (LVEF) less than or equal to 40%, or moderate or severely depressed left ventricular systolic function.: No A. The patient was prescribed or already taking an Angiotensin-Converting Enzyme (REYNALDO) Inhibitor, or Angiotensin Receptor Dyan (ARB).: Yes B. The patient was prescribed or already taking a beta-dyan. [If Yes to Both A & B, STOP here]: No Patient not prescribed/taking REYNALDO or ARB, no reason given.: No Patient not prescribed/taking beta-dyan, no reason given.: No PROFEE Charge Codes Discharge inpatient/observation: [id number]
--- NOTE | 2025-02-04 11:46 | CM.DANOTE ---
Initial DCP Assessment Note. Review EMR and PT Interview. Met with patient at bedside to discuss discharge needs.PT is alert x 4 sitting up in bed. No acute distress. Patient lives with family. Payor:??TERESE PCP: ?[facility] Summary & Plan:?69 y/o arrived to ED c/o N&V. Admitted OBS. Plan: INF. Advance diet as Tolerated. Home when improved. 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 Insurance [employer] Advance Directives? Yes Advance Directives No on File History Provided By Patient,Medical Record Has Patient been No admitted in last 30 days? Prior Living House Arrangements Household Members spouse,family Type of Relies on Others transporation used prior to admit Independent with ADL Yes 's Is patient alert and Yes oriented? Caregiver for No Another DME Already Rented / Wheelchair,FWW / Walker,Cane,Other Owned Comment Electric scooter. Walking sticks Barriers to No Discharge Discharge Plan Home Transportation Significant other/ one of his children. Arrangement Referrals Initiated None needed Review Status In Process Please Provide Date 02/04/25 Initial DC Assessment Was Performed Next Review Type Continued Stay Review
== END 2025-02-04 13:10 | disposition home or self-care (01) ==
LOC: ED 23:21 → AC 02-04 04:11
PROVIDERS: Emergency Medicine; Admitting Provider Internal Medicine; Emergency Provider Emergency Medicine; Visit Provider Internal Medicine
DX: R11.2 Nausea with vomiting, unspecified (principal); R51.9 Headache, unspecified; I12.9 Hypertensive chronic kidney disease with stage 1 through stage 4 chronic kidney disease, or unspecified chronic kidney disease; N18.4 Chronic kidney disease, stage 4 (severe); G20.C Parkinsonism, unspecified; F41.9 Anxiety disorder, unspecified; E78.5 Hyperlipidemia, unspecified; F32.A Depression, unspecified; R79.89 Other specified abnormal findings of blood chemistry; Z79.4 Long term (current) use of insulin; E11.22 Type 2 diabetes mellitus with diabetic chronic kidney disease; Z79.85 Long-term (current) use of injectable non-insulin antidiabetic drugs; Z95.0 Presence of cardiac pacemaker
CPT/HCPCS: 36415; 70450; 80053; 81003; 81015; 82550; 82962; 83690; 84484; 85025; 93005; 93010; 93306; 96372; 99284; 99291; G0378; J1815; J7050